=== PATIENT | female | born 2000 | race Two or more races ===

== ENCOUNTER 2020-03-19 07:17 | Emergency (ER) | payer MEDICAID, SELFPAY ==
[2020-03-19 07:24] VITALS: BP 121/80; PULSE 90; RESP 18; TEMP 37.2; O2SAT 98; BMI 24.7
--- NOTE | 2020-03-19 07:31 | ED.URI ---
HPI - URI/Sore Throat General Chief Complaint: Upper Respiratory Symptoms Stated Complaint: covid symptoms Time Seen by Provider: 03/19/20 07:31 Source: patient Mode of arrival: ambulatory Limitations: no limitations History of Present Illness HPI Narrative: Patient was around family for Thanksgiving and now they are positive for KETTY MARTINEZ elicited complaint: cough, sore throat, nasal congestion and other (myalgias) Onset (ago): day(s) Consistency: constant Severity: mild Context: sick contacts and other(s) with similar symptoms Associated symptoms: denies other symptoms Related Data Allergies Allergy/AdvReac Type Severity Reaction Status Date / Time No Known Allergies Allergy Verified 03/19/20 07:24 Review of Systems Constitutional: Constitutional: Reports no additional constitutional complaints Eyes: Eyes: Reports no additional eye complaints ENT: Denies dizziness Cardiovascular: Cardiovascular: Reports no additional cardiovascular complaints Respiratory: Respiratory: Reports as per HPI Gastrointestinal: Gastrointestinal: Reports no additional gastrointestinal complaints Genitourinary: Genitourinary: Reports no additional female genitourinary complaints Musculoskeletal: Musculoskeletal: Reports no additional musculoskeletal complaints Integumentary/Breasts: Skin/Breast: Denies rash Neurologic: Reports system reviewed and no additional complaints, except as documented, Denies dizziness and Denies Sensory deficit (Neuro) Psychiatric: Psychiatric: Denies anxiety [facility] Past Medical History Medical History (Updated 03/19/20 @ 07:47 by Peter Dai MD) Gastritis Physical Exam Vital Signs: Vital Signs: Last Vital Signs Temp 99.0 F 03/19/20 07:24 Pulse 90 03/19/20 07:24 Resp 18 03/19/20 07:24 BP 121/80 03/19/20 07:24 Pulse Ox 98 03/19/20 07:24 Body Mass Index 24.7 Const: General: healthy appearing Nutritional Appearance: average body habitus Orientation/consciousness: oriented to person and patient oriented x3 Limitations: no limitations HENMT: Head: Yes normal to inspection Ears: external ears normal General nose exam: Normal external nose present Mouth: Normal oral and palatal mucosa present and oropharynx normal Throat: Yes posterior oropharynx normal Eyes: General: appearance normal, both eyes and all related structures Neck: Other: supple Neck: Yes normal visual inspection Chest: Chest palpation & inspection: normal inspection of the chest Resp: Auscultation: clear to auscultation bilaterally Cardio: Jugular venous distension: no JVD Rate: regular rate Rhythm: regular rhythm Heart sounds: S1 normal heart sound present and S2 normal heart sound present GI: Inspection: Yes normal to inspection Palpation (GI): Soft to palpation, nontender and No hepatosplenomegaly present Auscultation: normal bowel sounds : General: Yes no CVA tenderness Back/Spine/Pelvis: Back: no CVA tenderness Skin: General skin exam: no rashes or lesions noted Neuro: General: oriented to person and patient oriented x3 Cranial nerves: Yes CN's II-XII intact bilaterally Motor exam (neuro): 5/5 motor strength present throughout Sensory Exam: No Sensory deficit (Neuro) Extrem: General: Yes normal to inspection Psych: Appearance: grossly normal Course Course Course Narrative: will test for COVID MDM - URI/Sore Throat MDM Narrative Medical decision making narrative: Patient with likely COVID, not ill appearing, will dc home Differential Diagnosis Differential diagnosis: Likely upper respiratory infection Discharge Plan Discharge Clinical Impression: COVID-19 Upper respiratory infection Qualifiers: URI type: unspecified viral URI Qualified Code(s): J06.9 - Acute upper respiratory infection, unspecified Patient Disposition: Home, Self-Care Instructions: COVID-19 (Coronavirus Disease 2019) (ED) Referrals: Physician,Unknown [Physician] - 2 days
== END 2020-03-19 08:11 | disposition home or self-care (01) ==
LOC: HO.ED 08:02
PROVIDERS: Emergency Provider Emergency Medicine; PCP Nurse Practitioner Family
DX: U07.1 COVID-19 (principal); R05 Cough; M79.10 Myalgia, unspecified site
CPT/HCPCS: 99283; U0003

== ENCOUNTER 2020-04-12 11:01 | Outpatient (REF) | payer MEDICAID, SELFPAY | END 2020-04-12 11:02 | disposition home or self-care (01) | LOC: HO.LAB 11:01 | PROVIDERS: Visit Provider Internal Medicine | DX: Z20.828 Contact with and (suspected) exposure to other viral communicable diseases (principal) | CPT/HCPCS: C9803; U0003 ==

== ENCOUNTER 2020-08-19 12:53 | Outpatient (REF) | payer MEDICAID, SELFPAY | END 2020-08-19 12:54 | disposition home or self-care (01) | LOC: HO.LAB 12:53 | PROVIDERS: Visit Provider Internal Medicine | DX: Z20.822 Contact with and (suspected) exposure to COVID-19 (principal) | CPT/HCPCS: C9803; U0003; U0005 ==

== ENCOUNTER 2020-09-08 11:33 | Outpatient (REF) | payer MEDICAID, SELFPAY ==
[2020-09-09 08:57] LABS: BV Int Neg Control Negative (Negative); BV Int Pos Control Positive (Positive)
[2020-09-09 09:00] LABS: CT PCR NOT DETECTED (Not Detect.); NG PCR NOT DETECTED (Not Detect.)
== END 2020-09-08 11:34 | disposition home or self-care (01) ==
LOC: HO.LAB 11:33
PROVIDERS: Visit Provider Advanced Practice Midwife
DX: Z01.419 Encounter for gynecological examination (general) (routine) without abnormal findings (principal); L73.9 Follicular disorder, unspecified; Z79.899 Other long term (current) drug therapy; Z20.2 Contact with and (suspected) exposure to infections with a predominantly sexual mode of transmission
CPT/HCPCS: 81025; 87480; 87491; 87510; 87591; 87660; 88142

== ENCOUNTER 2020-10-20 23:12 | Emergency (ER) | payer MEDICAID, SELFPAY ==
[2020-10-20 23:23] VITALS: BP 136/79; PULSE 95; RESP 16; TEMP 36.4; O2SAT 99; BMI 26.2
--- NOTE | 2020-10-20 23:37 | ED.FEMALEGU ---
HPI - Female Genitourinary General Chief complaint: Abdominal Pain Stated complaint: urogential pain for about 2 days Time Seen by Provider: 10/20/20 23:29 Source: patient Mode of arrival: ambulatory Limitations: no limitations History of Present Illness HPI Narrative: 20 y/o female with no significant medical history presents to the ER from home c/o 2 days of ovary pain. She states that she has dull, constant ache in both of her ovaries as well as thin, watery, white/clear vaginal discharge. She had unprotected sex on October 03 but denies concern for STI. She is late for her menses. She usually gets it every 3 months and is on the combination OCP for this. She was supposed to get it 4 days ago. She is nauseated but has not vomited. She states 2 weeks ago she had some mild spotting but no jessee bleeding. No fever, chills, diarrhea or constipation. Denies history of STI. She denies urinary symptoms. MD elicited complaint: vaginal discharge, pelvic pain, suspected and delayed menses Onset (ago): day(s) (2) Location of symptoms: suprapubic and vaginal Female Urogenital Radiation: Non-Radiating Severity scale (1-10): 4 Quality of pain: dull and aching Consistency: constant Vaginal discharge: white Vaginal bleeding: none Exacerbating factors: none Relieving factors: none Associated symptoms: nausea Treatment prior to arrival: none Sexual activity: Yes Possible : unsure if Related Data Previous Rx's Medication Instructions Recorded L norgest/E estradiol-E estrad 1 tab PO DAILY 84 Days #84 ea 09/08/20 0.15 mg-30 mcg (84)/10 mcg(7) tabs,3mos doxycycline monohydrate 100 mg PO BID #14 tab 10/21/20 metronidazole [Flagyl] 500 mg PO BID #14 tab 10/21/20 Allergies Allergy/AdvReac Type Severity Reaction Status Date / Time No Known Allergies Allergy Verified 09/08/20 11:56 Review of Systems Review of Systems: Constitutional: No Fever, No Chills Respiratory: No Cough, No Sputum Gastrointestinal: + Nausea, No Vomiting, No Diarrhea, + abdominal Pain Genitourinary: No Dysuria, No Urinary Frequency, No Hematuria Musculoskeletal: No joint pain, No Myalgias Skin: No Skin Lesions, No rash Neuro: No Weakness, No Numbness, No Dizziness, No Headache Psych: + Anxiety/Panic, No Depression Heme/Lymph: No Lymphadenopathy [facility] Past Medical History Attestation statement: The following information was validated with the patient. Medical History Gastritis Social History Social History (Updated 09/08/20 @ 11:58 by Yesenia Rosales CMA) Alcohol intake: current Alcohol intake frequency: holidays/special occasions only Substance Use Type: Marijuana Advance Directives: No Advance Directives Information Provided: No Patient : No (NEGATIVE TEST TODAY) Gender identity: female Physical Exam Vital Signs: Vital Signs: Last Vital Signs Temp 97.6 F 10/20/20 23:23 Pulse 95 10/20/20 23:23 Resp 16 10/20/20 23:23 BP 136/79 10/20/20 23:23 Pulse Ox 99 10/20/20 23:23 Body Mass Index 26.2 Const: General: cooperative, healthy appearing, comfortable and no acute distress HENMT: Head: Yes normal to inspection Ears: hearing grossly normal bilaterally General nose exam: Normal external nose present Face and sinus: Yes normal facial exam Mouth: Normal oral and palatal mucosa present Eyes: General: appearance normal, both eyes and all related structures Neck: Neck: Yes normal visual inspection Chest: Chest palpation & inspection: normal inspection of the chest Resp: Effort & Inspection: normal respiratory effort and able to speak in complete sentences Cardio: Rate: regular rate Rhythm: regular rhythm GI: Inspection: Yes normal to inspection Palpation (GI): Soft to palpation and Tenderness to palpation present (GI) suprapubicly; with no rebound tenderness Percussion: Yes normal to percussion Auscultation: normal bowel sounds : Speculum Exam - Vagina: normal appearance of the vagina and abnormal vaginal discharge white Speculum Exam - Cervix: Abnormal cervical discharge present white and Cervical lesion present petechiae Bimanual exam- vagina & uterus: normal bimanual exam Bimanual Exam- Adnexa, other: normal adnexae Skin: General skin exam: no rashes or lesions noted Extrem: General: Yes normal to inspection Psych: Appearance: grossly normal and well kempt Mental Status: mental status grossly normal Course Course Course Narrative: 20 y/o female presenting with 2 days of aching, dull ovary pain and new vaginal discharge after unprotected sex. Concern for with late menses. Will get UA, Upreg. Pelvic exam is concerning for cervicitis and STI. No cervical motion tenderness. Will empirically treat for STI's. Patient is agreeable and has been counseled. Reevaluation(s) Reevaluation #1: UA negative. negative. She has an appointment with [facility] here tomorrow morning at 9:45. She is stable for d/c home with outpatient follow up. MDM - Female Genitourinary Lab Data Labs: Lab Results 10/21/20 10/21/20 Range/Units 00:23 00:23 Urine Color YELLOW Urine Appearance CLEAR Urine pH 6.0 (5.0-8.0) Ur Specific [place] 1.020 (1.005-1.025) Urine Protein NEG (NEG-TRACE) MG/DL Urine Glucose (UA) NEG (NEG) MG/DL Urine Ketones NEG (NEG) MG/DL Urine Blood NEG (NEG) Urine Nitrite NEG (NEG) Ur Leukocyte Esterase NEG (NEG) Urine Test NEGATIVE (NEGATIVE) Discharge Plan Discharge Clinical Impression: Cervicitis Patient Disposition: Home, Self-Care Instructions: Cervicitis (ED) Additional Instructions: You were tested and treated for possible sexually transmitted infections. If ANY of these are positive we will call you. Your test was negative. Follow up with [facility] tomorrow as scheduled. Prescriptions: New doxycycline monohydrate 100 mg tablet 100 mg PO BID Qty: 14 RF: 0 metronidazole [Flagyl] 500 mg tablet 500 mg PO BID Qty: 14 RF: 0 No Action L norgest/e.estradiol-e.estrad [Seasonique] 0.15 mg-30 mcg (84)/10 mcg (7) tablets,dose pack,3 month 1 tab PO DAILY 84 Days Qty: 84 RF: 4 Referrals: Florentino Rao MD [Physician] - 2 days (cervicitis)
--- NOTE | 2020-10-21 00:12 | PC.NURSE ---
PA IN ROOM FOR A VAGINAL EXAM.
[2020-10-21 00:29] LABS: Glucose Urine UA NEG (NEG); Leukocyte Esterase Urine NEG (NEG); Nitrite Urine NEG (NEG); Urine Blood NEG (NEG); Urine Ketones NEG (NEG); Urine Protein NEG (NEG-TRACE)
[2020-10-21 00:31] LABS: UPreg QC Valid YES; Urine Pregnancy NEGATIVE (NEGATIVE)
[2020-10-21 00:32] LABS: Appearance Urine CLEAR; Color Urine YELLOW; UACC Culture Trigger NO
[2020-10-21] MEDS: Azithromycin 500 MG TABLET 1000 MG PO (00:41)
[2020-10-21] MEDS: metroNIDAZOLE 500 MG TABLET 2000 MG PO (00:41)
[2020-10-21] MEDS: cefTRIAXone sodium 250 MG, Lidocaine HCl 1 % MPF 0.9 ML IM (00:42)
[2020-10-21 02:34] LABS: CT PCR NOT DETECTED (Not Detect.); NG PCR NOT DETECTED (Not Detect.)
[2020-10-21 09:13] LABS: BV Int Neg Control Negative (Negative); BV Int Pos Control Positive (Positive)
== END 2020-10-21 01:03 | disposition home or self-care (01) ==
PROVIDERS: Physician Assistant; Emergency Provider Internal Medicine; PCP Nurse Practitioner Family
DX: N72 Inflammatory disease of cervix uteri (principal); Z20.2 Contact with and (suspected) exposure to infections with a predominantly sexual mode of transmission
CPT/HCPCS: 81003; 81025; 87480; 87491; 87510; 87591; 87660; 96372; 99283; 99284; J0696

== ENCOUNTER 2020-10-22 06:52 | Emergency (ER) | payer MEDICAID, SELFPAY ==
--- NOTE | ~2020-10-22 | CT_ITS ---
EXAMINATION: CT ABDOMEN AND PELVIS WITH CONTRAST CLINICAL INFORMATION: Right lower quadrant pain COMPARISON: Previous CT of the abdomen and pelvis April 2018 TECHNIQUE: Multidetector volumetric images were obtained from the superior aspect of the liver through the pubic symphysis following administration 85 mL of Omnipaque 350 intravenous contrast. Sagittal and coronal reformatted images were obtained on the technologist's workstation. Oral contrast: Yes This CT examination was performed using dose optimization techniques as appropriate, variously including the following: *Automated exposure control *Adjustment of mA and/or kV according to patient size (this includes techniques or standardized protocols for targeted exams where dose is matched to indication/reason for exam; i.e. extremities or head) *Use of iterative reconstruction technique DLP: 381 mGy-cm FINDINGS: LUNG BASES: The visualized lung bases are unremarkable. LIVER, GALLBLADDER, AND BILIARY TREE: The liver is normal in size, shape, and attenuation. No focal hepatic lesion or biliary ductal dilatation is present. The gallbladder is normal in size. No gallstones are seen. The gallbladder wall appears right or enhancing and likely irregular. This may represent adenomyomatosis of the gallbladder wall. This could be better evaluated with ultrasound if clinically indicated. PANCREAS: Unremarkable. SPLEEN: Unremarkable. ADRENAL GLANDS: Unremarkable. KIDNEYS AND URETERS: The kidneys are normal in size, shape, and attenuation. No hydronephrosis, hydroureter, or calculi seen. No perinephric stranding. BLADDER: Unremarkable. GASTROINTESTINAL TRACT: There is stool throughout the colon suggestive of constipation. The small and large bowel are otherwise unremarkable. The appendix is unremarkable. ABDOMINAL WALL: No significant hernia is appreciated. LYMPH NODES: Normal. VASCULAR: Unremarkable. PELVIC VISCERA: Unremarkable. OSSEOUS STRUCTURES: Unremarkable. CT/CT abdomen pelvis w con IMPRESSION: Normal-appearing appendix. Stool throughout the colon suggestive of constipation. Question adenomyomatosis of the gallbladder wall. This could be better evaluated with ultrasound if clinically indicated.
[2020-10-22 07:07] VITALS: BP 112/80; BP 95/55; PULSE 82; PULSE 98; RESP 15; TEMP 36.9; O2SAT 100; O2SAT 98; BMI 26.8
--- NOTE | 2020-10-22 07:36 | ED_ITS ---
HPI - Nausea/Vomiting/Diarrhea General Chief complaint: Nausea/Vomiting/Diarrhea Stated complaint: abd pain Time Seen by Provider: 10/22/20 07:28 Source: patient Mode of arrival: ambulatory Limitations: no limitations History of Present Illness HPI Narrative: patient comes to emergency room complaining of right lower quadrant pain. Patient was seen here 2 days ago, diagnosed with cervicitis, patient was given 1 IM dose of ceftriaxone, and was sent home with a prescription for doxycycline and metronidazole. Patient states that the medication is making her feel nauseous and vomit, patient states that she has not had any significant relief from the right lower quadrant discomfort. Patient reports subjective fever, chills, Complaining of nausea and vomiting. Related Data Previous Rx's Medication Instructions Recorded L norgest/E estradiol-E estrad 1 tab PO DAILY 84 Days #84 ea 09/08/20 0.15 mg-30 mcg (84)/10 mcg(7) tabs,3mos doxycycline monohydrate 100 mg PO BID #14 tab 10/21/20 metronidazole [Flagyl] 500 mg PO BID #14 tab 10/21/20 levofloxacin 750 mg PO DAILY #7 tab 10/22/20 miconazole nitrate 1 appful VAGINAL BEDTIME 7 Days g 10/22/20 miconazole nitrate 1 appful VAGINAL BEDTIME 7 Days 10/22/20 #45 g ondansetron HCl [Zofran] 4 mg PO Q6H PRN #14 tab 10/22/20 Allergies Allergy/AdvReac Type Severity Reaction Status Date / Time No Known Allergies Allergy Verified 09/08/20 11:56 Review of Systems Review of Systems: Constitutional : No Weight loss, Complaining of chills, subjective feverNo Night Sweats, No Fatigue, No Malaise ENT/Mouth : No Hearing loss, No Ear Pain, No Nasal Congestion, No Sinus Pain, No Hoarseness, No sore throat, No Rhinorrhea, No Swallowing Difficulty Eyes: No Eye Pain, No Swelling, No Redness, No Foreign Body, No Discharge, No Vision Changes Cardiovascular : No Chest Pain, No SOB, No Dyspnea on Exertion, No Orthopnea, No Edema, No Palpitations Respiratory : No Cough, No Sputum, No Wheezing, No Smoke Exposure, No Dyspnea Gastrointestinal : draining of nausea and vomiting,No Diarrhea, No Constipation, complaining of right lower quadrant pain, No Hematochezia, No Melena Genitourinary : no irregular bleeding, No Dysuria, No Urinary Frequency, No Hematuria, No Urinary Incontinence, No Urgency, No Flank Pain, No Urinary Flow Changes, No Hesitancy Musculoskeletal : No joint pain, No Myalgias, No Joint Swelling Skin : No Skin Lesions, No rash Neuro : No Weakness, No Numbness, No Paresthesias, No Loss of Consciousness, No Dizziness, No Headache Psych : No Anxiety/Panic, No Depression, No SI/HI/AH/VH, No Social Issues, Heme/Lymph: No Bruising, No Bleeding,No Lymphadenopathy Endocrine : No Polyuria, No Polydipsia, No Temperature Intolerance [facility] Past Medical History Medical History Gastritis Social History Social History (Updated 09/08/20 @ 11:58 by Yesenia Rosales [facility]) Alcohol intake: never Patient Tobacco Use Status: Never used Tobacco Use of substances other than those prescribed or required for medical reasons: Yes Substance Use Type: Marijuana Advance Directives: Yes Advance Directives Information Provided: Yes Advance Directives on File: No Patient : No Gender identity: female Physical Exam Vital Signs: Vital Signs: Last Vital Signs Temp 98.4 F 10/22/20 07:07 Pulse 71 10/22/20 09:53 Resp 16 10/22/20 09:53 BP 101/56 L 10/22/20 09:53 Pulse Ox 97 10/22/20 09:53 Body Mass Index 26.8 Appearance: Alert. Oriented X3. No acute distress. Eyes: Pupils equal, round and reactive to light. ENT: Pharynx normal. Neck: Normal inspection. Neck supple. No lymph nodes noted. No crepitus CVS: Normal heart rate and rhythm. Pulses normal. Normal S1 and S2 Respiratory: No respiratory distress. Breath sounds normal. No Wheezing. No rales Abdomen: Soft and nontender. No rigidity. No distention. : mild white thick discharge, mild positive cervical motion tenderness Skin: Skin warm and dry. Normal skin color. Normal skin turgor. Extremities: No lower extremity edema. No lower extremity edema. No Lace rations. No Rash Neuro: Oriented X 3. No motor deficit. No sensory deficit. Moving all extermities. No slurred speech. Course Course Course Narrative: Patient's test from 2 days ago were negative for Trichomonas, Gardnerella, gonorrhea and chlamydia. Positive for candidiasis patient cannot tolerate doxycycline, makes her throw up. I discussed with the patient not to take alcohol while she is taking metronidazole. Her antibiotic will be switched to levofloxacin. Patient instructed to have close follow-up with her OBGYN. MDM - Nausea/Vomiting/Diarrhea Lab Data Result diagrams: 10/22/20 08:07 10/22/20 08:11 Labs: Lab Results 10/22/20 10/22/20 10/22/20 Range/Units 08:07 08:07 08:07 WBC 7.8 (4.8-10.8) X10*3/uL RBC 4.57 (4.20-5.50) X10*6/uL Hgb 13.5 (12.0-16.0) g/dl Hct 41.0 (37-47) % MCV 89.7 (80-98) fL MCH 29.5 (27.0-33.0) pg MCHC 32.9 (31.0-35.0) g/dl RDW 13.1 (11.0-16.0) % Plt Count 152 L (160-400) X10*3/uL MPV 12.2 (9.4-12.3) fL Immature Gran % (Auto) 0.3 (0.0-0.4) % Neut % (Auto) 56.9 (45-73) % Lymph % (Auto) 32.7 (20-40) % [place] % (Auto) 7.6 (2-11) % Eos % (Auto) 2.1 (0-4) % Baso % (Auto) 0.4 (0-2) % Lymph # (Auto) 2.6 (1.2-4.9) X10*3/uL [place] # (Auto) 0.6 (0.1-1.2) X10*3/uL Eos # (Auto) 0.2 (0.0-0.4) X10*3/uL Baso # (Auto) 0.0 (0.0-0.2) X10*3/uL Abs Immat Gran (auto) 0.02 (0.00-0.03) X10*3/uL Absolute Neuts (auto) 4.4 (2.0-8.3) X10*3/uL Absolute Nucleated RBC 0.000 (0.0-0.012) X10*3/uL Nucleated RBC % (auto) 0.0 (0.0-0.2) /100WBC Sodium (135-145) mmol/L Potassium (3.3-5.1) mmol/L Chloride (96-108) mmol/L Carbon Dioxide (22-29) mmol/L Anion Gap (12-20) BUN (9-16) mg/dL Creatinine (0.5-1.4) mg/dL Estim Creat Clear Calc Estimated GFR Random Glucose (60-115) mg/dL Lactic Acid 0.8 (0.5-2.0) mmol/L Calcium (8.4-10.2) mg/dL Total Bilirubin (0.0-1.0) mg/dL Direct Bilirubin (0.0-0.5) mg/dL AST (5-31) U/L ALT (0-31) U/L Alkaline Phosphatase (39-117) U/L Total Protein (6.5-8.0) g/dL Albumin (3.5-5.0) g/dL Lipase 22 (8-78) U/L Beta HCG, Quant mIU/mL Urine Color Urine Appearance Urine pH (5.0-8.0) Ur Specific [place] (1.005-1.025) Urine Protein (NEG-TRACE) MG/DL Urine Glucose (UA) (NEG) MG/DL Urine Ketones (NEG) MG/DL Urine Blood (NEG) Urine Nitrite (NEG) Ur Leukocyte Esterase (NEG) 10/22/20 10/22/20 10/22/20 Range/Units 08:07 08:11 09:54 WBC (4.8-10.8) X10*3/uL RBC (4.20-5.50) X10*6/uL Hgb (12.0-16.0) g/dl Hct (37-47) % MCV (80-98) fL MCH (27.0-33.0) pg MCHC (31.0-35.0) g/dl RDW (11.0-16.0) % Plt Count (160-400) X10*3/uL MPV (9.4-12.3) fL Immature Gran % (Auto) (0.0-0.4) % Neut % (Auto) (45-73) % Lymph % (Auto) (20-40) % [place] % (Auto) (2-11) % Eos % (Auto) (0-4) % Baso % (Auto) (0-2) % Lymph # (Auto) (1.2-4.9) X10*3/uL [place] # (Auto) (0.1-1.2) X10*3/uL Eos # (Auto) (0.0-0.4) X10*3/uL Baso # (Auto) (0.0-0.2) X10*3/uL Abs Immat Gran (auto) (0.00-0.03) X10*3/uL Absolute Neuts (auto) (2.0-8.3) X10*3/uL Absolute Nucleated RBC (0.0-0.012) X10*3/uL Nucleated RBC % (auto) (0.0-0.2) /100WBC Sodium 137 (135-145) mmol/L Potassium 3.8 (3.3-5.1) mmol/L Chloride 107 (96-108) mmol/L Carbon Dioxide 23 (22-29) mmol/L Anion Gap 11 L (12-20) BUN 14 (9-16) mg/dL Creatinine 0.72 (0.5-1.4) mg/dL Estim Creat Clear Calc 106.2 Estimated GFR > 60 Random Glucose 84 (60-115) mg/dL Lactic Acid (0.5-2.0) mmol/L Calcium 9.3 (8.4-10.2) mg/dL Total Bilirubin 0.8 (0.0-1.0) mg/dL Direct Bilirubin 0.3 (0.0-0.5) mg/dL AST 17 (5-31) U/L ALT 26 (0-31) U/L Alkaline Phosphatase 73 (39-117) U/L Total Protein 6.6 (6.5-8.0) g/dL Albumin 3.9 (3.5-5.0) g/dL Lipase (8-78) U/L Beta HCG, Quant < 2 mIU/mL Urine Color YELLOW Urine Appearance CLEAR Urine pH 7.5 (5.0-8.0) Ur Specific [place] <= 1.005 (1.005-1.025) Urine Protein NEG (NEG-TRACE) MG/DL Urine Glucose (UA) NEG (NEG) MG/DL Urine Ketones NEG (NEG) MG/DL Urine Blood NEG (NEG) Urine Nitrite NEG (NEG) Ur Leukocyte Esterase NEG (NEG) Imaging Data CT scan - abdomen: Radiologist's impression: INDINGS: LUNG BASES: The visualized lung bases are unremarkable. LIVER, GALLBLADDER, AND BILIARY TREE: The liver is normal in size, shape, and attenuation. No focal hepatic lesion or biliary ductal dilatation is present. The gallbladder is normal in size. No gallstones are seen. The gallbladder wall appears right or enhancing and likely irregular. This may represent adenomyomatosis of the gallbladder wall. This could be better evaluated with ultrasound if clinically indicated. PANCREAS: Unremarkable. SPLEEN: Unremarkable. ADRENAL GLANDS: Unremarkable. KIDNEYS AND URETERS: The kidneys are normal in size, shape, and attenuation. No hydronephrosis, hydroureter, or calculi seen. No perinephric stranding. BLADDER: Unremarkable. GASTROINTESTINAL TRACT: There is stool throughout the colon suggestive of constipation. The small and large bowel are otherwise unremarkable. The appendix is unremarkable. ABDOMINAL WALL: No significant hernia is appreciated. LYMPH NODES: Normal. VASCULAR: Unremarkable. PELVIC VISCERA: Unremarkable. OSSEOUS STRUCTURES: Unremarkable. CT/CT abdomen pelvis w con IMPRESSION: Normal-appearing appendix. Stool throughout the colon suggestive of constipation. Question adenomyomatosis of the gallbladder wall. This could be better evaluated with ultrasound if clinically indicated. Discharge Plan Discharge Clinical Impression: Vomiting, Medication intolerance, Candidiasis Patient Disposition: Home, Self-Care Instructions: Abdominal Pain (ED) Additional Instructions: stop taking doxycycline, start taking levofloxacin , continue taking metronidazole. Please follow-up with your OBGYN. Please follow-up with your primary care physician tomorrow. If you have any worsening or new symptoms, please return to the emergency room or call 911 Prescriptions: New levofloxacin 750 mg tablet 750 mg PO DAILY Qty: 7 RF: 0 ondansetron HCl [Zofran] 4 mg tablet 4 mg PO Q6H PRN (Reason: nausea and vomiting) Qty: 14 RF: 0 miconazole nitrate 2 % cream 1 appful vaginal BEDTIME 7 Days RF: 0 miconazole nitrate 2 % cream 1 appful vaginal BEDTIME 7 Days Qty: 45 RF: 0 No Action doxycycline monohydrate 100 mg tablet 100 mg PO BID Qty: 14 RF: 0 metronidazole [Flagyl] 500 mg tablet 500 mg PO BID Qty: 14 RF: 0 L norgest/e.estradiol-e.estrad [Seasonique] 0.15 mg-30 mcg (84)/10 mcg (7) tablets,dose pack,3 month 1 tab PO DAILY 84 Days Qty: 84 RF: 4
[2020-10-22] MEDS: 0.9 % Sodium Chloride 1,000 ML 999 ML IVCONT (08:16)
[2020-10-22 08:22] LABS: MANUAL DIFF FLAG NO
[2020-10-22 08:24] LABS: Basophils Percent Auto 0.4 % (0-2); Eosinophils Absolute Auto 0.2 X10*3/uL (0.0-0.4); Eosinophils Percent Auto 2.1 % (0-4); Hemoglobin 13.5 g/dl (12.0-16.0); Imm Gran Abs Auto 0.02 X10*3/uL (0.00-0.03); Imm Gran Pct Auto 0.3 % (0.0-0.4); Lymphocytes Absolute Auto 2.6 X10*3/uL (1.2-4.9); Lymphocytes Percent Auto 32.7 % (20-40); Mean Corpuscular HGB Conc 32.9 g/dl (31.0-35.0); Mean Corpuscular Hemoglobin 29.5 pg (27.0-33.0); Mean Corpuscular Volume 89.7 fL (80-98); Mean Platelet Volume 12.2 fL (9.4-12.3); Monocytes Absolute Auto 0.6 X10*3/uL (0.1-1.2); Monocytes Percent Auto 7.6 % (2-11); Neutrophils Absolute Auto 4.4 X10*3/uL (2.0-8.3); Neutrophils Percent Auto 56.9 % (45-73); Platelet Count 152 X10*3/uL (160-400); Red Blood Count 4.57 X10*6/uL (4.20-5.50); Red Cell Distribution Width 13.1 % (11.0-16.0); White Blood Count 7.8 X10*3/uL (4.8-10.8)
[2020-10-22] MEDS: Ketorolac Tromethamine 15 MG/ML VIAL 30 MG IVPUSH (08:42)
[2020-10-22 08:46] LABS: Lactic Acid 0.8 mmol/L (0.5-2.0)
[2020-10-22 08:51] LABS: Alanine Aminotransferase 26 U/L (0-31); Albumin Level 3.9 g/dL (3.5-5.0); Alkaline Phosphatase 73 U/L (39-117); Anion Gap 11 (12-20); Aspartate Amino Transferase 17 U/L (5-31); Bilirubin Direct 0.3 mg/dL (0.0-0.5); Bilirubin Total 0.8 mg/dL (0.0-1.0); Blood Urea Nitrogen 14 mg/dL (9-16); Calcium 9.3 mg/dL (8.4-10.2); Carbon Dioxide 23 mmol/L (22-29); Chloride 107 mmol/L (96-108); Creatinine Clr Calc Pharmacy 106.2; Estimated Glomerular Filt Rate > 60; Glucose Random 84 mg/dL (60-115); Potassium 3.8 mmol/L (3.3-5.1); Sodium 137 mmol/L (135-145); Total Protein 6.6 g/dL (6.5-8.0)
[2020-10-22 08:52] LABS: Lipase 22 U/L (8-78)
[2020-10-22 08:56] LABS: HCG Quantitative < 2 mIU/mL
[2020-10-22] MEDS: iohexoL 350 MG/ML 100 ML INFUS..BTL IV (09:36)
[2020-10-22 09:53] VITALS: BP 101/56; PULSE 71; RESP 16; O2SAT 97
[2020-10-22 10:01] LABS: Glucose Urine UA NEG (NEG); Leukocyte Esterase Urine NEG (NEG); Nitrite Urine NEG (NEG); PH 7.5 (5.0-8.0); Specific Gravity - Urine <= 1.005 (1.005-1.025); Urine Blood NEG (NEG); Urine Ketones NEG (NEG); Urine Protein NEG (NEG-TRACE)
[2020-10-22 10:02] LABS: Appearance Urine CLEAR; Color Urine YELLOW
== END 2020-10-22 11:11 | disposition home or self-care (01) ==
PROVIDERS: Emergency Provider Emergency Medicine
DX: R11.10 Vomiting, unspecified (principal); T36.4X5A Adverse effect of tetracyclines, initial encounter; Y92.9 Unspecified place or not applicable; B37.9 Candidiasis, unspecified; N72 Inflammatory disease of cervix uteri
CPT/HCPCS: 36415; 74177; 80048; 80076; 81003; 83605; 83690; 84702; 85025; 87040; 96361; 96374; 96375; 99283; 99284; J1885; Q9967

== ENCOUNTER 2020-10-22 20:14 | Emergency (ER) | payer MEDICAID, SELFPAY ==
[2020-10-22 20:20] VITALS: BP 119/85; PULSE 91; RESP 16; O2SAT 99; BMI 26.6
--- NOTE | 2020-10-22 21:21 | ED_ITS ---
HPI - Allergic Reaction General Chief complaint: Allergic Reaction Stated complaint: alergic reaction Time Seen by Provider: 10/22/20 21:19 History of Present Illness HPI narrative: Patient is a 20-year-old female with a history of cervicitis. Patient initially was given doxycycline and Rocephin. She was unable to tolerate the doxycycline. Getting nausea. The antibiotic was switched to Levaquin last night along with the metronidazole which she has been taking all along. Patient complaining of a rash that developed prior to arrival. Patient was given Benadryl on the ambulance. Subsequently the rash has gone away on arrival in the emergency department. She has no itch. No shortness of breath. No chest pain. No dizziness. Patient from home. No nausea no vomiting. patient denies using alcohol. Patient denies any change in her environment. No new lotion no new apartment no new pets no changes. Related Data Previous Rx's Medication Instructions Recorded L norgest/E estradiol-E estrad 1 tab PO DAILY 84 Days #84 ea 09/08/20 0.15 mg-30 mcg (84)/10 mcg(7) tabs,3mos doxycycline monohydrate 100 mg PO BID #14 tab 10/21/20 metronidazole [Flagyl] 500 mg PO BID #14 tab 10/21/20 diphenhydramine HCl [Benadryl] 25 mg PO Q8H 5 Days #15 cap 10/22/20 epinephrine [EpiPen] 0.3 mg IM ONCE PRN #1 ea 10/22/20 famotidine [Pepcid] 20 mg PO BID 5 Days #10 tab 10/22/20 levofloxacin 750 mg PO DAILY #7 tab 10/22/20 miconazole nitrate 1 appful VAGINAL BEDTIME 7 Days g 10/22/20 miconazole nitrate 1 appful VAGINAL BEDTIME 7 Days 10/22/20 #45 g ondansetron HCl [Zofran] 4 mg PO Q6H PRN #14 tab 10/22/20 Allergies Allergy/AdvReac Type Severity Reaction Status Date / Time No Known Allergies Allergy Verified 09/08/20 11:56 Review of Systems Review of Systems: No fever no chills no shortness breath no change in voice. Positive diffuse rash around the eye and in the hands. It has resolved. All systems reviewed otherwise negative PMFSH Past Medical History Attestation statement: The following information was validated with the patient. Medical History Gastritis Social History Social History (Updated 09/08/20 @ 11:58 by Yesenia Rosales CMA) Alcohol intake: never Patient Tobacco Use Status: Never used Tobacco Substance Use Type: Marijuana Advance Directives: No Advance Directives Information Provided: Yes Patient : No Gender identity: female Physical Exam Vital Signs: Vital Signs: Last Vital Signs Pulse 91 10/22/20 20:20 Resp 16 10/22/20 20:20 BP 119/85 10/22/20 20:20 Pulse Ox 99 10/22/20 20:20 Body Mass Index 26.6 X Appearance: Alert. Oriented X3. No acute distress. Eyes: Pupils equal, round and reactive to light. ENT: Pharynx normal. Neck: Normal inspection. Neck supple. No lymph nodes noted. No crepitus CVS: Normal heart rate and rhythm. Pulses normal. Normal S1 and S2 Respiratory: No respiratory distress. Breath sounds normal. No Wheezing. No rales Abdomen: Soft and nontender. No rigidity. No distention. good BS x4 Skin: Skin warm and dry. Normal skin color. Normal skin turgor. Extremities: No lower extremity edema. Neurovascular intact to all extremities. No Lacerations. No Rash Neuro: Oriented X 3. No motor deficit. No sensory deficit. Moving all extermities. No slurred speech MDM - Allergic Reaction MDM Narrative Medical decision making narrative: Patient has no rash. Lungs are clear normal voice. Vital signs are stable. No evidence for allergic reaction at this time. Patient claims she had watery eyes and also had a rash earlier. Took some Benadryl in the ambulance. Symptom has completely resolved. Question if patient had allergic reaction. Given patient already had a change in medicat ion. She tolerated the Levaquin well otherwise. Elected to have patient monitor the situation. Continue the Levaquin for now. Continue the metronidazole for now. Close follow-up on an outpatient basis. Benadryl given as needed for allergic reaction. Epinephrine pen for extreme condition if she gets short of breath change in voice. Currently in stable condition. Will discharge home. Differential Diagnosis Differential diagnosis: Likely allergic reaction Medical Records Attestation: I reviewed the patient's medical records. Lab Data Attestation: I reviewed the patient's lab results. Discharge Plan Discharge Clinical Impression: Allergic reaction Patient Disposition: Home, Self-Care Instructions: Allergies (ED) Prescriptions: New diphenhydramine HCl [Benadryl] 25 mg capsule 25 mg PO Q8H 5 Days Qty: 15 RF: 0 epinephrine [EpiPen] 0.3 mg/0.3 mL auto-injector 0.3 mg IM ONCE PRN (Reason: extreme reaction) Qty: 1 RF: 0 famotidine [Pepcid] 20 mg tablet 20 mg PO BID 5 Days Qty: 10 RF: 0 No Action doxycycline monohydrate 100 mg tablet 100 mg PO BID Qty: 14 RF: 0 metronidazole [Flagyl] 500 mg tablet 500 mg PO BID Qty: 14 RF: 0 levofloxacin 750 mg tablet 750 mg PO DAILY Qty: 7 RF: 0 ondansetron HCl [Zofran] 4 mg tablet 4 mg PO Q6H PRN (Reason: nausea and vomiting) Qty: 14 RF: 0 miconazole nitrate 2 % cream 1 appful vaginal BEDTIME 7 Days RF: 0 miconazole nitrate 2 % cream 1 appful vaginal BEDTIME 7 Days Qty: 45 RF: 0 L norgest/e.estradiol-e.estrad [Seasonique] 0.15 mg-30 mcg (84)/10 mcg (7) tablets,dose pack,3 month 1 tab PO DAILY 84 Days Qty: 84 RF: 4 Referrals: Devonte Camacho NP [Primary Care Provider] - 2 days
[2020-10-22 21:41] VITALS: BP 119/68; PULSE 91; RESP 16; TEMP 36.6; O2SAT 99
== END 2020-10-22 22:12 | disposition home or self-care (01) ==
PROVIDERS: Emergency Provider Emergency Medicine Emergency Medical Services; PCP Nurse Practitioner Family
DX: T78.40XA Allergy, unspecified, initial encounter (principal); X58.XXXA Exposure to other specified factors, initial encounter; N72 Inflammatory disease of cervix uteri
CPT/HCPCS: 99283

== ENCOUNTER → 2020-11-10 08:29 | Outpatient (BNVA) | payer MEDICAID, SELFPAY | PROVIDERS: Visit Provider Advanced Practice Midwife ==

== ENCOUNTER 2020-11-29 09:04 | Outpatient (REF) | payer MEDICAID, SELFPAY ==
[2020-11-29 15:45] LABS: CT PCR NOT DETECTED (Not Detect.); NG PCR NOT DETECTED (Not Detect.)
[2020-11-30 09:16] LABS: BV Int Neg Control Negative (Negative); BV Int Pos Control Positive (Positive)
== END 2020-11-29 09:05 | disposition home or self-care (01) ==
LOC: HO.LAB 09:04
PROVIDERS: Visit Provider Advanced Practice Midwife
DX: N73.0 Acute parametritis and pelvic cellulitis (principal); Z20.2 Contact with and (suspected) exposure to infections with a predominantly sexual mode of transmission
CPT/HCPCS: 87480; 87491; 87510; 87591; 87660; 99212

== ENCOUNTER 2021-05-06 15:13 | Outpatient (REF) | payer MEDICAID, SELFPAY ==
[2021-05-07 03:00] LABS: CT PCR NOT DETECTED (Not Detect.); NG PCR NOT DETECTED (Not Detect.)
[2021-05-07 09:48] LABS: BV Int Neg Control Negative (Negative); BV Int Pos Control Positive (Positive)
== END 2021-05-06 15:14 | disposition home or self-care (01) ==
LOC: HO.LAB 15:13
PROVIDERS: Visit Provider Advanced Practice Midwife
DX: Z01.419 Encounter for gynecological examination (general) (routine) without abnormal findings (principal); Z20.2 Contact with and (suspected) exposure to infections with a predominantly sexual mode of transmission
CPT/HCPCS: 87480; 87491; 87510; 87591; 87660; 99212

== ENCOUNTER 2021-06-28 21:24 | Emergency (ER) | payer OTHER, SELFPAY ==
--- NOTE | ~2021-06-28 | XR_ITS ---
EXAMINATION: 1. RADIOGRAPHS RIGHT KNEE 2. RADIOGRAPHS RIGHT ANKLE CLINICAL INFORMATION: Diffuse swelling after fall. COMPARISON: None TECHNIQUE: 2 views of the right knee and 3 views of the right ankle were obtained. FINDINGS: Right knee: No fracture or dislocation. No suprapatellar joint effusion. No appreciable degenerative changes. No focal soft tissue swelling of the anterior knee. Right ankle: Visualized portion of the distal tibia and fibula demonstrate no fracture. Ankle mortise is maintained. No focal soft tissue swelling of the ankle. No appreciable degenerative changes. No gross ankle joint effusion. XR/XR knee RT 2V IMPRESSION: Unremarkable radiographs of the right knee and right ankle.
--- NOTE | ~2021-06-28 | XR_ITS ---
EXAMINATION: 1. RADIOGRAPHS RIGHT KNEE 2. RADIOGRAPHS RIGHT ANKLE CLINICAL INFORMATION: Diffuse swelling after fall. COMPARISON: None TECHNIQUE: 2 views of the right knee and 3 views of the right ankle were obtained. FINDINGS: Right knee: No fracture or dislocation. No suprapatellar joint effusion. No appreciable degenerative changes. No focal soft tissue swelling of the anterior knee. Right ankle: Visualized portion of the distal tibia and fibula demonstrate no fracture. Ankle mortise is maintained. No focal soft tissue swelling of the ankle. No appreciable degenerative changes. No gross ankle joint effusion. XR/XR ankle RT 2V IMPRESSION: Unremarkable radiographs of the right knee and right ankle.
[2021-06-28 21:28] VITALS: BP 134/92; PULSE 96; RESP 16; TEMP 37; O2SAT 98; BMI 28.3
[2021-06-28] MEDS: Ibuprofen 600 MG TABLET PO (21:37)
--- NOTE | 2021-06-28 22:38 | ED.FALL ---
HPI - Fall General Chief Complaint: Fall Stated Complaint: slipped on water pain in rt knee and ankle at work Time Seen by Provider: 06/28/21 22:38 Source: patient Mode of arrival: ambulatory Limitations: no limitations History of Present Illness HPI Narrative: Patient is a 21 year old female presenting to the emergency department today with right knee and right ankle pain after a fall. Patient states that she was at work when she slipped on water and hurt her right ankle and her right knee. Patient denies hitting her head with the incident. Patient denies any loss of consciousness with the incident. Patient denies any dizziness, lightheadedness, abdominal pain, nausea, vomiting, fever, chills, blurry vision, double vision, loss of vision, chest pain, difficulty breathing, shortness of breath, back pain, night sweats, pain with urination, increased urinary frequency, increased urinary urgency, blood in her urine or stool, syncope or a near syncopal episode, bowel incontinence, bladder incontinence, bowel retention, bladder retention, or any other complaints at this time. MD complaint: fall Onset (ago): hour(s) Fall from: standing Fall witnessed: no Place fall occurred: work Loss of consciousness: none Prolonged down time: no Symptoms prior to fall: none Context: tripped/slipped Location of injury - extremities: right: knee and ankle Severity: mild Severity scale (1-10): 3 Quality: dull Associated symptoms (after fall): denies Related Data Previous Rx's Medication Instructions Recorded L norgest/E estradiol-E estrad 1 tab PO DAILY 84 Days #84 ea 09/08/20 0.15 mg-30 mcg (84)/10 mcg(7) tabs,3mos (Seasonique) epinephrine 0.3 mg/0.3 mL 0.3 mg (0.3 mL) IM ONCE PRN #1 ea 10/22/20 injection, auto-injector (EpiPen) metronidazole 0.75 % vaginal gel 1 appful VAGINAL BEDTIME 5 Days 05/10/21 (Metrogel Vaginal) #70 g Allergies Allergy/AdvReac Type Severity Reaction Status Date / Time No Known Allergies Allergy Verified 05/06/21 15:33 Review of Systems Constitutional: Constitutional: Reports no additional constitutional complaints, Denies chills, Denies fever(s) and Denies night sweats Eyes: Eyes: Reports no additional eye complaints, Denies blurry vision, Denies change in vision, Denies diplopia, Denies eye discharge, Denies loss of vision and Denies eye pain ENT: Denies dizziness Cardiovascular: Cardiovascular: Reports no additional cardiovascular complaints, Denies chest pain, Denies lightheadedness, Denies Loss of Consciousness and Denies dyspnea Respiratory: Respiratory: Reports no additional respiratory complaints and Denies dyspnea Gastrointestinal: Gastrointestinal: Reports no additional gastrointestinal complaints, Denies abdominal pain, Denies melena, Denies hematochezia, Denies change in bowel habits and Denies change in stool character Genitourinary: Genitourinary: Denies hematuria, Denies urinary frequency, Denies dysuria, Denies urinary incontinence, Denies urinary hesitancy and Denies urinary urgency Musculoskeletal: Musculoskeletal: Reports no additional musculoskeletal complaints, Denies numbness and Denies tingling Comments: right knee pain and right ankle pain Neurologic: Denies dizziness, Denies loss of vision, Denies numbness and Denies tingling Psychiatric: Psychiatric: Reports no additional psychiatric complaints Endocrine: Endocrine: Reports no additional endocrine complaints Hematologic/Lymphatic: Hematologic/Lymphatic: Reports no additional hematologic/lymphatic complaints Allergic/Immunologic: Allergic/Immunologic: Reports no additional allergic/immunologic complaints [facility] Past Medical History Attestation statement: The following information was validated with the patient. Source: old records reviewed Medical History Gastritis Social History Social History Alcohol intake: never Patient Tobacco Use Status: Never used Tobacco Substance Use Type: Marijuana Advance Directives: No Advance Directives Information Provided: No Patient : No Gender identity: Female Physical Exam Vital Signs: Vital Signs: Last Vital Signs Temp 98.6 F 06/28/21 21:28 Pulse 96 06/28/21 21:28 Resp 16 06/28/21 21:28 BP 134/92 H 06/28/21 21:28 Pulse Ox 98 06/28/21 21:28 BMI result Body Mass Index 28.3 Const: General: cooperative, no acute distress, alert and awake Nutritional Appearance: well nourished Orientation/consciousness: patient oriented x3 Limitations: no limitations HENMT: Head: Yes normal to inspection and Yes atraumatic Ears: hearing grossly normal bilaterally and external ears normal General nose exam: Normal external nose present, no nasal discharge noted and no epistaxis Face and sinus: Yes normal facial exam, No abrasion and No laceration Mouth: Normal oral and palatal mucosa present, no drooling and no muffled voice Eyes: General: appearance normal, both eyes and all related structures Periorbital: periorbital findings normal Eyelids: Yes eyelids normal Conjunctivae: conjunctivae normal Pupils: Equal, round and reactive pupils present EOM: EOMs intact bilaterally Neck: Neck: Yes normal visual inspection, Yes full ROM and Yes no lymphadenopathy Chest: Chest palpation & inspection: normal inspection of the chest Resp: Effort & Inspection: normal respiratory effort and able to speak in complete sentences GI: Inspection: Yes normal to inspection Neuro: General: patient oriented x3 and moves all extremities Cranial nerves: Yes Equal, round and reactive pupils present Cognition (Neuro): normal cognition Motor exam (neuro): 5/5 motor strength present throughout Sensory Exam: Normal double simultaneous stimulation for sensation Coordination: [id number] test normal Extrem: Other: pain to palpation of the right anterior knee General: Yes normal to inspection, Yes full ROM and Yes capillary refill normal Psych: Appearance: grossly normal Mental Status: mental status grossly normal Affect: normal affect Attitude: cooperative Thought process: Normal thought process present Thought content: Normal thought content present Insight: Good insight present (Psych) Procedures Orthopedic Splinting/Casting Injury #1: Side: right Lower Extremity Injury Location: knee Lower Extremity Immobilizer: knee immobilizer Other Orthopedic Equipment: crutches MDM - Fall MDM Narrative Medical decision making narrative: Patient is a 21 year old female presenting to the emergency department today with right knee and right ankle pain after a fall. Patient's physical exam showed tenderness to palpation to the right anterior knee but was otherwise unremarkable. Patient's ROM, circulation, strength, and sensation were intact to the right lower extremity. Patient's right ankle and right knee x-rays showed no acute process. I explained my physical exam findings as well as all test results to the patient. I answered all questions asked by the patient. Patient's right knee was placed in a knee immobilizer and given crutches with specific instructions on how to use them. Patient's PMS was intact prior to and after immobilizer placement. I stressed the importance of the patient taking her medication as prescribed. I stressed the importance of the patient following up with her primary care provider and an orthopedist. I stressed the importance of the patient returning to the emergency department immediately if her symptoms were to worsen or if she were to develop any dizziness, shortness of breath, difficulty breathing, chest pain, blurry vision, loss of vision, nausea, vomiting, abdominal pain, fever, chills, back pain, or any other complaints. Patient verbalized agreement and understanding with this treatment plan and discharge. Differential Diagnosis Differential diagnosis: Likely dislocation and fracture Medical Records Attestation: I reviewed the patient's medical records. Imaging Data Right knee and right ankle x-ray: Attestation: I personally reviewed and interpreted this imaging study as follows: My impression: No acute fractures. Radiologist's impression: EXAMINATION: 1.? RADIOGRAPHS RIGHT KNEE 2.? RADIOGRAPHS RIGHT ANKLE CLINICAL INFORMATION: Diffuse swelling after fall.? COMPARISON: None? TECHNIQUE: 2 views of the right knee and 3 views of the right ankle were obtained. FINDINGS: Right knee: No fracture or dislocation. No suprapatellar joint effusion. No appreciable degenerative changes. No focal soft tissue swelling of the anterior knee. Right ankle: Visualized portion of the distal tibia and fibula demonstrate no fracture. Ankle mortise is maintained. No focal soft tissue swelling of the ankle. No appreciable degenerative changes. No gross ankle joint effusion. ? XR/XR knee RT 2V IMPRESSION: Unremarkable radiographs of the right knee and right ankle.? Dictated By: RUBY LOUIS MD Signed By: Electronically signed by RUBY LOUIS MD 06/28/21 3601 Discharge Plan Discharge Clinical Impression: Acute knee pain, Acute ankle pain Patient Disposition: Home, Self-Care Instructions: Crutch Instructions (ED), Knee Pain (ED), Knee Immobilizer (ED) Additional Instructions: Call to schedule a follow up appointment with an Orthopedic provider. Follow up with your primary care provider. Return to the emergency department immediately if your symptoms worsen or if you develop any dizziness, shortness of breath, difficulty breathing, chest pain, blurry vision, loss of vision, nausea, vomiting, abdominal pain, fever, chills, back pain, or any other complaints. Prescriptions: No Action metronidazole [Metrogel Vaginal] 0.75 % gel 1 appful vaginal BEDTIME 5 Days Qty: 70 0RF epinephrine [EpiPen] 0.3 mg/0.3 mL auto-injector 0.3 mg IM ONCE PRN (Reason: extreme reaction) Qty: 1 0RF Rx Instructions: for 2 doses L norgest/e.estradiol-e.estrad [Seasonique] 0.15 mg-30 mcg (84)/10 mcg (7) tablets,dose pack,3 month 1 tab PO DAILY 84 Days Qty: 84 4RF Referrals: Bg Schroeder MD [Physician] - 2 days [place] [Primary Care Provider] - 2 days Stand Alone Forms: Work/School Release Print Language: Sinhala
== END 2021-06-29 00:33 | disposition home or self-care (01) ==
PROVIDERS: Emergency Provider Emergency Medicine
DX: Z04.2 Encounter for examination and observation following work accident (principal); G89.11 Acute pain due to trauma; M25.561 Pain in right knee; M25.571 Pain in right ankle and joints of right foot
CPT/HCPCS: 73560; 73600; 99283; 99284

== ENCOUNTER → 2021-07-05 08:29 | Outpatient (BNVA) | payer OTHER, SELFPAY | PROVIDERS: Visit Provider Internal Medicine | DX: Z13.89 Encounter for screening for other disorder (principal) | CPT/HCPCS: 99202 ==

== ENCOUNTER 2021-07-11 08:53 | Outpatient (REF) | payer OTHER, SELFPAY ==
--- NOTE | ~2021-07-11 | XR_ITS ---
EXAMINATION: RIGHT KNEE. CLINICAL INFORMATION: Pain in right knee. COMPARISON: None TECHNIQUE: [place] patella view. FINDINGS: A single sunrise patellar views reveals a patellofemoral joint space is normal. No bony erosive changes. There are no loose bodies. The soft tissues are normal. XR/XR knee RT 1V IMPRESSION: Unremarkable right patellofemoral compartment.
== END 2021-07-11 08:54 | disposition home or self-care (01) ==
LOC: HO.HOSX 08:53
PROVIDERS: Visit Provider Physician Assistant
DX: S80.01XA Contusion of right knee, initial encounter (principal); M22.2X1 Patellofemoral disorders, right knee
CPT/HCPCS: 73560; 99202

== ENCOUNTER → 2021-07-19 09:00 | Outpatient (BNVA) | payer OTHER, SELFPAY | PROVIDERS: Visit Provider Internal Medicine | DX: Z13.89 Encounter for screening for other disorder (principal) | CPT/HCPCS: 99213 ==

== ENCOUNTER → 2021-08-11 10:55 | Outpatient (BNVA) | payer OTHER, SELFPAY | PROVIDERS: Visit Provider Internal Medicine | DX: Z13.89 Encounter for screening for other disorder (principal) | CPT/HCPCS: 99213 ==

== ENCOUNTER 2021-08-31 19:00 | Outpatient (REF) | payer OTHER, SELFPAY ==
[2021-08-31 19:38] LABS: COVID-19 Test Positive (Negative)
== END 2021-08-31 19:01 | disposition home or self-care (01) ==
LOC: HO.LAB 19:00
PROVIDERS: Visit Provider Internal Medicine
DX: Z20.822 Contact with and (suspected) exposure to COVID-19 (principal)
CPT/HCPCS: 87635

== ENCOUNTER 2021-09-02 16:54 | Emergency (ER) | payer MEDICAID, SELFPAY ==
--- NOTE | ~2021-09-02 | XR_ITS ---
EXAMINATION: XR chest 2V CLINICAL INFORMATION: Reason for Exam cough, fevers, chest wall pain COMPARISON: Chest radiograph 01/04/2017 TECHNIQUE: 2 views of the chest XR/XR chest 2V FINDINGS/IMPRESSION: * Clear lungs. * No pneumothorax or pleural effusion. * Normal cardiomediastinal silhouette.
[2021-09-02 16:59] VITALS: BP 125/80; PULSE 90; O2SAT 100
[2021-09-02 17:12] VITALS: BP 111/76; PULSE 75; RESP 16; TEMP 36.2; O2SAT 100; BMI 23.2
--- NOTE | 2021-09-02 18:42 | ED.URI ---
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 Reports that she tested negative for COVID on Sunday. Then retested on Sunday and positive for COVID. Reports that she is vaccinated to COVID. Denies any sick contacts that she is aware. She reports she has been taking Motrin Tylenol in providing symptomatic relief. Reports that she is also concerned due to she has been having yellow/white colored discharge and is very itchy in the vaginal area and reports ?I think I have yeast infection?. Denies any thoughts of STDs. Denies any measured fevers, dizziness, headaches, neck pain/stiffness, trouble swallowing or breathing, dyspnea on exertion, orthopnea, palpitations, paresthesias, nausea/vomiting/diarrhea constipation, black or bloody stools, abdominal pain, back pain, rashes, lower extremity edema or calf tenderness, recent travel, hematuria, dysuria or any other symptoms complaints or concerns at this time. MD elicited complaint: cough Pertinent past history: other (See above) Onset (ago): day(s) (5) Consistency: constant Severity: mild Description of mucous: clear, watery, yellow and green Able to tolerate fluids by mouth: Yes Exacerbating factors: deep breaths (/coughing) Relieving factors: nothing Context: other (Works in a hospital) Associated symptoms: chills, myalgias, rhinorrhea, nasal congestion, cough, chest pain and shortness of breath Treatments prior to arrival: acetaminophen and ibuprofen Related Data Previous Rx's Medication Instructions Recorded L norgest/E estradiol-E estrad 1 tab PO DAILY 84 Days #84 ea 09/08/20 0.15 mg-30 mcg (84)/10 mcg(7) tabs,3mos (Seasonique) epinephrine 0.3 mg/0.3 mL 0.3 mg (0.3 mL) IM ONCE PRN #1 ea 10/22/20 injection, auto-injector (EpiPen) metronidazole 0.75 % vaginal gel 1 appful VAGINAL BEDTIME 5 Days 05/10/21 (Metrogel Vaginal) #70 g albuterol sulfate 90 mcg/actuation 1 inh INHALATION QID PRN #8.5 g 09/02/21 aerosol inhaler azithromycin 250 mg tablet See Rx Instructions PO .COMPLEX #6 09/02/21 tab codeine 10 mg-guaifenesin 100 mg/5 5 ml PO Q6H PRN #120 ml 09/02/21 mL oral liquid (Guaifenesin AC) fluconazole 150 mg tablet 150 mg PO Q3D #2 tab 09/02/21 (Diflucan) Allergies Allergy/AdvReac Type Severity Reaction Status Date / Time No Known Allergies Allergy Verified 09/02/21 18:07 Review of Systems Review of Systems: Constitutional : + chills/fatigue/malaise, No Weight loss, No Fever, No Night Sweats ENT/Mouth : + nasal congestion/rhinorrhea, No Hearing loss, No Ear Pain, No Sinus Pain, No Hoarseness, No sore throat, No Swallowing Difficulty Eyes: No Eye Pain, No Swelling, No Redness, No Foreign Body, No Discharge, No Vision Changes Cardiovascular : No Chest Pain, + SOB, No Dyspnea on Exertion, No Orthopnea, No Edema, No Palpitations Respiratory : + Cough, No Sputum, No Wheezing, No Smoke Exposure, + Dyspnea Gastrointestinal : No Nausea, No Vomiting, No Diarrhea, No Constipation, No abdominal Pain, No Hematochezia, No Melena Genitourinary : no irregular bleeding, No Dysuria, No Urinary Frequency, No Hematuria, No Urinary Incontinence, No Urgency, No Flank Pain, No Urinary Flow Changes, No Hesitancy Musculoskeletal : No joint pain, + Myalgias, No Joint Swelling Skin : No Skin Lesions, No rash Neuro : No Weakness, No Numbness, No Paresthesias, No Loss of Consciousness, No Dizziness, No Headache Psych : No Anxiety/Panic, No Depression, No SI/HI/AH/VH, No Social Issues, Heme/Lymph: No Bruising, No Bleeding,No Lymphadenopathy Endocrine : No Polyuria, No Polydipsia, No Temperature Intolerance Yes all other systems are reviewed and are negative PMFSH Past Medical History Attestation statement: The following information was validated with the patient. 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 Blood pressure normal. Heart rate normal. Respiration rate normal. Temperature normal. Oxygen saturation normal. Appearance: Alert. Oriented X3. No acute distress. Head: Normal external exam. Normocephalic. Atraumatic. Eyes: PERRLA. EOMI. Conjunctiva and sclera normal. Eyelids normal. ENT: EAC normal. TM's Normal. Pharynx normal. Uvula midline. Moist mucous membranes. No lesions/ulcerations or masses noted on the tongue. Normal voice. No trismus noted. No drooling noted. No muffled voice noted. Neck: Normal inspection. Neck supple. FROM. No adenopathy. Thyroid Normal. No meningeal signs. No neck mass noted. No signs of trauma noted. CVS: Normal heart rate and rhythm. Heart sound normal. Pulses normal throughout. No murmurs/rales/gallops. Respiratory: No respiratory distress. Painless inspiration. Breath sounds normal. No wheezes/rales/rhonchi noted. Chest nontender. No crepitus is noted. No signs of trauma noted. No accessory muscle usage noted or decreased air movement noted. No signs of trauma. Abdomen: Soft and nontender. Bowel sounds normal in all 4 quadrants. No distention noted. No organomegaly noted. No visible injury noted. Back: No CVA tenderness. Full range of motion noted. Nontender. No signs of trauma. Patient neuro intact bilaterally and distally on all 4 extremities. Patient's reflexes intact bilaterally and distally on all 4 extremities. No rashes/lesion/induration/fluctuance or signs of infection noted. Skin: Skin warm and dry. Normal skin color. Normal skin turgor. No rashes/lesions/lacerations noted. Extremities: No lower extremity edema. No calf tenderness is noted. Extremities exhibit normal range of motion and nontender. Neuro: Oriented X 3. No motor deficit. No sensory deficit. Reflexes normal. Normal steady gait. No focal neuro deficits noted. CN's II-XII intact bilaterally? Vascular: + radial pulses/+ 2 distal pedal pulses/+2 dorsalis pedis b/l. Normal cap refill. No cyanosis noted to upper extremity nails and lower extremity toes nails. Course Course Course Narrative: Patient positive for COVID although she already knew she had COVID. Chest x-ray negative for pneumonia or any other acute processes. She is concerned that she probably has a yeast infection and wants to be treated. She wanted to self swab. Therefore she self swab for gonorrhea/chlamydia/bacterial vaginosis/Trichomonas/yeast. Will treat for yeast infection. She does not believe she has an STD therefore those labs are pending and we will call her if any positive results or I explained to her she can see on the patient portal. I explained to her that she has to the self isolate per CDC guidelines and per Work connection guidelines and to return if any new or worsening symptoms. Patient understands agrees with this plan. MDM - URI/Sore Throat Medical Records Attestation: I reviewed the patient's medical records. Lab Data Attestation: I reviewed the patient's lab results. Imaging Data Chest x-ray: Attestation: I personally reviewed and interpreted this imaging study as follows: Radiologist's impression: EXAMINATION: XR chest 2V CLINICAL INFORMATION: Reason for Exam cough, fevers, chest wall pain COMPARISON: Chest radiograph? 01/04/2017 TECHNIQUE: 2 views of the chest XR/XR chest 2V FINDINGS/IMPRESSION: ? *? Clear lungs. ? *? No pneumothorax or pleural effusion. ? *? Normal cardiomediastinal silhouette. Discharge Plan Discharge Clinical Impression: Acute bronchitis due to 2019-nCoV, Jennifer vaginitis Patient Disposition: Home, Self-Care Instructions: Acute Bronchitis (ED), Yeast Infection (ED), COVID-19 (Coronavirus Disease 2019) (ED) Prescriptions: New azithromycin 250 mg tablet See Rx Instructions PO .COMPLEX Qty: 6 0RF Rx Instructions: take 500 mg today (day 1), then 250 mg for 4 days (days 2-5) codeine-guaifenesin [Guaifenesin AC] 10-100 mg/5 mL liquid 5 ml PO Q6H PRN (Reason: cold symptoms) Qty: 120 0RF albuterol sulfate 90 mcg/actuation HFA aerosol inhaler 1 inh inhalation QID PRN (Reason: shortness of breath or wheezing) Qty: 8.5 0RF fluconazole [Diflucan] 150 mg tablet 150 mg PO Q3D Qty: 2 0RF Rx Instructions: May repeat in 72 hours if symptoms persist No Action metronidazole [Metrogel Vaginal] 0.75 % gel 1 appful vaginal BEDTIME 5 Days Qty: 70 0RF epinephrine [EpiPen] 0.3 mg/0.3 mL auto-injector 0.3 mg IM ONCE PRN (Reason: extreme reaction) Qty: 1 0RF Rx Instructions: for 2 doses L norgest/e.estradiol-e.estrad [Seasonique] 0.15 mg-30 mcg (84)/10 mcg (7) tablets,dose pack,3 month 1 tab PO DAILY 84 Days Qty: 84 4RF Referrals: [facility] [Primary Care Provider] - 2 days
[2021-09-03 13:52] LABS: BV Int Neg Control Negative (Negative); BV Int Pos Control Positive (Positive)
[2021-09-03 16:55] LABS: CT PCR NOT DETECTED (Not Detect.); NG PCR NOT DETECTED (Not Detect.)
== END 2021-09-02 19:34 | disposition home or self-care (01) ==
LOC: HO.ED 18:45
PROVIDERS: Physician Assistant Medical; Emergency Provider Internal Medicine
DX: U07.1 COVID-19 (principal); J20.8 Acute bronchitis due to other specified organisms; B37.3 Candidiasis of vulva and vagina
CPT/HCPCS: 71046; 87480; 87491; 87510; 87591; 87660; 99282; 99283

== ENCOUNTER 2021-12-02 11:42 | Outpatient (REF) | payer MEDICAID, SELFPAY ==
[2021-12-02 14:56] LABS: CT PCR NOT DETECTED (Not Detect.); NG PCR NOT DETECTED (Not Detect.)
[2021-12-03 09:44] LABS: BV Int Neg Control Negative (Negative); BV Int Pos Control Positive (Positive)
== END 2021-12-02 11:43 | disposition home or self-care (01) ==
LOC: HO.LAB 11:42
PROVIDERS: Visit Provider Advanced Practice Midwife
DX: Z11.3 Encounter for screening for infections with a predominantly sexual mode of transmission (principal)
CPT/HCPCS: 87480; 87491; 87510; 87591; 87660

== ENCOUNTER 2022-01-11 10:42 | Outpatient (REF) | payer MEDICAID, SELFPAY ==
[2022-01-11 16:02] LABS: CT PCR NOT DETECTED (Not Detect.); NG PCR NOT DETECTED (Not Detect.)
[2022-01-12 13:09] LABS: BV Int Neg Control Negative (Negative); BV Int Pos Control Positive (Positive)
== END 2022-01-11 10:43 | disposition home or self-care (01) ==
LOC: HO.LNP 10:42
PROVIDERS: Visit Provider Advanced Practice Midwife
DX: N76.0 Acute vaginitis (principal); B96.89 Other specified bacterial agents as the cause of diseases classified elsewhere; Z11.3 Encounter for screening for infections with a predominantly sexual mode of transmission; Z30.09 Encounter for other general counseling and advice on contraception; Z79.899 Other long term (current) drug therapy
CPT/HCPCS: 87480; 87491; 87510; 87591; 87660; 99212

== ENCOUNTER 2022-02-06 16:44 | Outpatient (REF) | payer OTHER, SELFPAY ==
[2022-02-06 17:30] LABS: COVID-19 Test Negative (Negative); IDNOW Serial# 9DB6401D
== END 2022-02-06 16:45 | disposition home or self-care (01) ==
LOC: HO.LAB 16:44
PROVIDERS: Visit Provider Internal Medicine
DX: Z20.822 Contact with and (suspected) exposure to COVID-19 (principal)
CPT/HCPCS: 87635

== ENCOUNTER → 2022-02-14 13:03 | Outpatient (BNVA) | payer MEDICAID, SELFPAY | PROVIDERS: Visit Provider Advanced Practice Midwife | DX: Z30.42 Encounter for surveillance of injectable contraceptive (principal) | CPT/HCPCS: 96372; 99211 ==

== ENCOUNTER → 2022-05-08 12:55 | Outpatient (BNVA) | payer MEDICAID, SELFPAY | PROVIDERS: Visit Provider Advanced Practice Midwife | DX: Z13.89 Encounter for screening for other disorder (principal) ==

== ENCOUNTER → 2022-05-09 11:02 | Outpatient (BNVA) | payer MEDICAID, SELFPAY | PROVIDERS: Visit Provider Advanced Practice Midwife | DX: Z30.42 Encounter for surveillance of injectable contraceptive (principal) | CPT/HCPCS: 96372; 99211 ==

== ENCOUNTER → 2022-07-25 12:59 | Outpatient (BNVA) | payer MEDICAID, SELFPAY | PROVIDERS: Visit Provider Advanced Practice Midwife | DX: Z30.42 Encounter for surveillance of injectable contraceptive (principal) | CPT/HCPCS: 96372; 99211 ==

== ENCOUNTER 2022-07-26 17:43 | Emergency (ER) | payer MEDICAID, SELFPAY ==
[2022-07-26 17:46] VITALS: BP 128/77; PULSE 88; RESP 18; TEMP 36.2; O2SAT 99; BMI 26.9
--- NOTE | 2022-07-26 17:50 | ED.ABDPAIN ---
HPI - Abdominal Pain General Chief Complaint: Abdominal Pain Stated Complaint: chest pain, chest through to back Related Data Previous Rx's Medication Instructions Recorded epinephrine 0.3 mg/0.3 mL 0.3 mg (0.3 mL) IM ONCE PRN 10/22/20 injection, auto-injector (EpiPen) extreme reaction #1 ea albuterol sulfate 90 mcg/actuation 1 inh inhalation QID PRN shortness 09/02/21 aerosol inhaler of breath or wheezing #8.5 grams L norgest/E estradiol-E estrad 1 tab PO DAILY #91 tabs 10/10/21 0.15 mg-30 mcg (84)/10 mcg(7) tabs,3mos medroxyprogesterone 150 mg/mL 150 mg IM Q12W #1 mL 12/02/21 intramuscular suspension (Depo-Provera) metronidazole 0.75 % (37.5 mg/5 1 appful vaginal BID 5 days #70 01/11/22 gram) vaginal gel grams Allergies Allergy/AdvReac Type Severity Reaction Status Date / Time No Known Allergies Allergy Verified 07/26/22 17:46 [facility] Past Medical History Medical History Gastritis Family History Family History Paternal Aunt Uterine cancer Social History Social History Alcohol intake: never Patient Tobacco Use Status: Never used Tobacco Substance Use Type: Marijuana Advance Directives: No Advance Directives Information Provided: No 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 Deferred additional HPI, ROS, PE to primary provider. 22-year-old female here with upper abdominal pain with radiation to left chest wall since yesterday. Will obtain labs, UA, ur preg. VSS Medical Decision Making Lab Data 07/26/22 18:07 07/26/22 18:07 Labs: Lab Results 07/26/22 07/26/22 07/26/22 Range/Units 18:07 18:07 18:09 WBC 8.4 (4.8-10.8) X10*3/uL RBC 4.53 (4.20-5.50) X10*6/uL Hgb 13.2 (12.0-16.0) g/dl Hct 40.7 (37.0-47.0) % MCV 89.8 (80.0-98.0) fL MCH 29.1 (27.0-33.0) pg MCHC 32.4 (31.0-35.0) g/dl RDW 12.6 (11.0-16.0) % Plt Count 185 (160-400) X10*3/uL MPV 10.9 (9.4-12.3) fL Immature Gran % (Auto) 0.4 (0.0-0.4) % Neut % (Auto) 40.2 L (45-73) % Lymph % (Auto) 48.7 H (20-40) % [place] % (Auto) 7.4 (2-11) % Eos % (Auto) 2.7 (0-4) % Baso % (Auto) 0.6 (0-2) % Lymph # (Auto) 4.1 (1.2-4.9) X10*3/uL [place] # (Auto) 0.6 (0.1-1.2) X10*3/uL Eos # (Auto) 0.2 (0.0-0.4) X10*3/uL Baso # (Auto) 0.1 (0.0-0.2) X10*3/uL Abs Immat Gran (auto) 0.03 (0.00-0.03) X10*3/uL Absolute Neuts (auto) 3.4 (2.0-8.3) x10*3/uL Absolute Nucleated RBC 0.000 (0.0-0.012) X10*3/uL Nucleated RBC % (auto) 0.0 (0.0-0.2) /100WBC Sodium 141 (135-145) mmol/L Potassium 3.6 (3.3-5.1) mmol/L Chloride 110 H (96-108) mmol/L Carbon Dioxide 24 (22-29) mmol/L Anion Gap 11 L (12-20) BUN 11 (9-16) mg/dL Creatinine 0.72 (0.5-1.4) mg/dL Estim Creat Clear Calc 100.4 Estimated GFR > 60 Random Glucose 75 (60-115) mg/dL Calcium 9.3 (8.4-10.2) mg/dL Total Bilirubin 0.7 (0.0-1.0) mg/dL Direct Bilirubin 0.2 (0.0-0.5) mg/dL AST 18 (5-31) U/L ALT 23 (0-31) U/L Alkaline Phosphatase 66 (39-117) U/L Total Protein 6.8 (6.5-8.0) g/dL Albumin 4.3 (3.5-5.0) g/dL Lipase 22 (8-78) U/L Urine Color Yellow Urine Appearance Clear Urine pH 5.5 (5.0-9.0) Ur Specific [place] >= 1.030 H (1.005-1.025) Urine Protein Trace (Neg-Trace) mg/dL Urine Glucose (UA) Negative (Negative) mg/dL Urine Ketones Trace (Negative) mg/dL Urine Blood Negative (Negative) Urine Nitrite Negative (Negative) Ur Leukocyte Esterase Negative (Negative) Urine Test (NEGATIVE) 07/26/22 Range/Units 18:09 WBC (4.8-10.8) X10*3/uL RBC (4.20-5.50) X10*6/uL Hgb (12.0-16.0) g/dl Hct (37.0-47.0) % MCV (80.0-98.0) fL MCH (27.0-33.0) pg MCHC (31.0-35.0) g/dl RDW (11.0-16.0) % Plt Count (160-400) X10*3/uL MPV (9.4-12.3) fL Immature Gran % (Auto) (0.0-0.4) % Neut % (Auto) (45-73) % Lymph % (Auto) (20-40) % [place] % (Auto) (2-11) % Eos % (Auto) (0-4) % Baso % (Auto) (0-2) % Lymph # (Auto) (1.2-4.9) X10*3/uL [place] # (Auto) (0.1-1.2) X10*3/uL Eos # (Auto) (0.0-0.4) X10*3/uL Baso # (Auto) (0.0-0.2) X10*3/uL Abs Immat Gran (auto) (0.00-0.03) X10*3/uL Absolute Neuts (auto) (2.0-8.3) x10*3/uL Absolute Nucleated RBC (0.0-0.012) X10*3/uL Nucleated RBC % (auto) (0.0-0.2) /100WBC Sodium (135-145) mmol/L Potassium (3.3-5.1) mmol/L Chloride (96-108) mmol/L Carbon Dioxide (22-29) mmol/L Anion Gap (12-20) BUN (9-16) mg/dL Creatinine (0.5-1.4) mg/dL Estim Creat Clear Calc Estimated GFR Random Glucose (60-115) mg/dL Calcium (8.4-10.2) mg/dL Total Bilirubin (0.0-1.0) mg/dL Direct Bilirubin (0.0-0.5) mg/dL AST (5-31) U/L ALT (0-31) U/L Alkaline Phosphatase (39-117) U/L Total Protein (6.5-8.0) g/dL Albumin (3.5-5.0) g/dL Lipase (8-78) U/L Urine Color Urine Appearance Urine pH (5.0-9.0) Ur Specific [place] (1.005-1.025) Urine Protein (Neg-Trace) mg/dL Urine Glucose (UA) (Negative) mg/dL Urine Ketones (Negative) mg/dL Urine Blood (Negative) Urine Nitrite (Negative) Ur Leukocyte Esterase (Negative) Urine Test NEGATIVE (NEGATIVE) Discharge Plan Discharge Clinical Impression: Abdominal pain Patient Disposition: Elopement Prescriptions: No Action L norgest/e.estradiol-e.estrad 0.15 mg-30 mcg (84)/10 mcg (7) tablets,dose pack,3 month 1 tab PO DAILY Qty: 91 4RF epinephrine [EpiPen] 0.3 mg/0.3 mL auto-injector 0.3 mg IM ONCE PRN (Reason: extreme reaction) Qty: 1 0RF Rx Instructions: for 2 doses albuterol sulfate 90 mcg/actuation HFA aerosol inhaler 1 inh inhalation QID PRN (Reason: shortness of breath or wheezing) Qty: 8.5 0RF medroxyprogesterone [Depo-Provera] 150 mg/mL suspension 150 mg IM Q12W Qty: 1 5RF metronidazole 0.75 % (37.5mg/5 gram) gel 1 appful vaginal BID 5 Days Qty: 70 1RF Discharge Date/Time: 07/26/22 21:46
--- NOTE | 2022-07-26 17:51 | ECG_ITS ---
Test Reason : CHEST PAIN Blood Pressure : / mmHG Vent. Rate : 088 BPM Atrial Rate : 088 BPM P-R Int : 140 ms QRS Dur : 078 ms QT Int : 352 ms P-R-T Axes : 051 061 037 degrees QTc Int : 425 ms Normal sinus rhythm Normal ECG No previous ECGs available Referred By: Bianca Smith Electronically Signed By:ANGELITA CHICAS MD
[2022-07-26 18:18] LABS: Basophils Absolute Auto 0.1 X10*3/uL (0.0-0.2); Basophils Percent Auto 0.6 % (0-2); Eosinophils Absolute Auto 0.2 X10*3/uL (0.0-0.4); Eosinophils Percent Auto 2.7 % (0-4); Hematocrit 40.7 % (37.0-47.0); Hemoglobin 13.2 g/dl (12.0-16.0); Imm Gran Abs Auto 0.03 X10*3/uL (0.00-0.03); Imm Gran Pct Auto 0.4 % (0.0-0.4); Lymphocytes Absolute Auto 4.1 X10*3/uL (1.2-4.9); Lymphocytes Percent Auto 48.7 % (20-40); MANUAL DIFF FLAG NO; Mean Corpuscular HGB Conc 32.4 g/dl (31.0-35.0); Mean Corpuscular Hemoglobin 29.1 pg (27.0-33.0); Mean Corpuscular Volume 89.8 fL (80.0-98.0); Mean Platelet Volume 10.9 fL (9.4-12.3); Monocytes Absolute Auto 0.6 X10*3/uL (0.1-1.2); Monocytes Percent Auto 7.4 % (2-11); Neutrophils Absolute Auto 3.4 x10*3/uL (2.0-8.3); Neutrophils Percent Auto 40.2 % (45-73); Platelet Count 185 X10*3/uL (160-400); Red Blood Count 4.53 X10*6/uL (4.20-5.50); Red Cell Distribution Width 12.6 % (11.0-16.0); White Blood Count 8.4 X10*3/uL (4.8-10.8)
[2022-07-26 18:21] LABS: Appearance Urine Clear; Color Urine Yellow; Glucose Urine UA Negative (Negative); Leukocyte Esterase Urine Negative (Negative); Nitrite Urine Negative (Negative); PH 5.5 (5.0-9.0); Specific Gravity - Urine >= 1.030 (1.005-1.025); Urine Blood Negative (Negative); Urine Ketones Trace mg/dL (Negative); Urine Protein Trace mg/dL (Neg-Trace)
[2022-07-26 18:22] LABS: UPreg QC Valid YES; Urine Pregnancy NEGATIVE (NEGATIVE)
[2022-07-26 18:34] LABS: Alanine Aminotransferase 23 U/L (0-31); Albumin Level 4.3 g/dL (3.5-5.0); Alkaline Phosphatase 66 U/L (39-117); Anion Gap 11 (12-20); Aspartate Amino Transferase 18 U/L (5-31); Bilirubin Direct 0.2 mg/dL (0.0-0.5); Bilirubin Total 0.7 mg/dL (0.0-1.0); Blood Urea Nitrogen 11 mg/dL (9-16); Calcium 9.3 mg/dL (8.4-10.2); Carbon Dioxide 24 mmol/L (22-29); Chloride 110 mmol/L (96-108); Creatinine Clr Calc Pharmacy 100.4; Estimated Glomerular Filt Rate > 60; Glucose Random 75 mg/dL (60-115); Lipase 22 U/L (8-78); Potassium 3.6 mmol/L (3.3-5.1); Sodium 141 mmol/L (135-145); Total Protein 6.8 g/dL (6.5-8.0)
== END 2022-07-26 21:46 | disposition left against medical advice (07) ==
PROVIDERS: Nurse Practitioner Family; Emergency Provider Emergency Medicine
DX: R10.9 Unspecified abdominal pain (principal); R07.9 Chest pain, unspecified; Z79.899 Other long term (current) drug therapy
CPT/HCPCS: 36415; 80048; 80076; 81003; 81025; 83690; 85025; 93005; 99283

== ENCOUNTER 2022-07-29 23:04 | Emergency (ER) | payer MEDICAID, SELFPAY ==
[2022-07-29 23:19] VITALS: BP 114/61; PULSE 90; RESP 20; TEMP 36.7; O2SAT 99; BMI 26.0
[2022-07-29 23:59] VITALS: BP 100/58; PULSE 94; RESP 18; TEMP 37.1; O2SAT 97
[2022-07-30 00:09] LABS: Hematocrit 38.6 % (37.0-47.0); Hemoglobin 12.6 g/dl (12.0-16.0); Mean Corpuscular HGB Conc 32.6 g/dl (31.0-35.0); Mean Corpuscular Hemoglobin 28.8 pg (27.0-33.0); Mean Corpuscular Volume 88.3 fL (80.0-98.0); Mean Platelet Volume 10.7 fL (9.4-12.3); Platelet Count 187 X10*3/uL (160-400); Red Blood Count 4.37 X10*6/uL (4.20-5.50); Red Cell Distribution Width 12.8 % (11.0-16.0); White Blood Count 9.5 X10*3/uL (4.8-10.8)
--- NOTE | 2022-07-30 00:13 | PC.NURSE ---
pt states back pain began on Sunday and has worsened states pain radiates from midback on the L side to underneath L breast pt states she grew concerned since the pain is now accompanied by a tingling sensation denies n/v/dizziness origin of pain unknown; pt states she did not injure it
[2022-07-30 00:25] LABS: Appearance Urine Cloudy; Color Urine Yellow; Glucose Urine UA Negative (Negative); Leukocyte Esterase Urine Small (1+) (Negative); Nitrite Urine Negative (Negative); Specific Gravity - Urine >= 1.030 (1.005-1.025); UMIC TRIGGER UACC YES; Urine Blood Negative (Negative); Urine Ketones Trace mg/dL (Negative); Urine Protein 30 (1+) mg/dL (Neg-Trace)
[2022-07-30 00:31] LABS: Alanine Aminotransferase 23 U/L (0-31); Alkaline Phosphatase 61 U/L (39-117); Anion Gap 12 (12-20); Aspartate Amino Transferase 17 U/L (5-31); Bilirubin Total 0.5 mg/dL (0.0-1.0); Blood Urea Nitrogen 10 mg/dL (9-16); Calcium 9.1 mg/dL (8.4-10.2); Carbon Dioxide 23 mmol/L (22-29); Chloride 111 mmol/L (96-108); Creatinine Clr Calc Pharmacy 85.3; Estimated Glomerular Filt Rate > 60; Glucose Random 90 mg/dL (60-115); Potassium 4.2 mmol/L (3.3-5.1); Sodium 142 mmol/L (135-145); Total Protein 6.4 g/dL (6.5-8.0)
--- NOTE | 2022-07-30 00:36 | ED_ITS ---
HPI - Back Pain/Injury General Chief Complaint: Back Pain/Injury Stated Complaint: sharp back pain Time Seen by Provider: 07/30/22 00:12 Source: patient Mode of arrival: ambulatory Limitations: no limitations History of Present Illness HPI Narrative: 22-year-old female who presents emergency department for evaluation chest and thoracic back pain. The patient states that she woke up with the pain on 07/25/2022 (5 days prior to arrival). She points to her sternum, left chest and left posterior chest when asked to localize the pain. She states the pain is a constant, tightness/pressure-like pain which is worse with breathing and with moving. She denied shortness of breath or dyspnea on exertion she states she does have a ?tingly sensation ?in her left posterior chest. She states the pain is been constant. She has been taking ibuprofen and Tylenol with only minimal relief for the pain. The patient denied fever, chills, cough. She denies pain, swelling in her extremities. She has not been on any long trips. She does not take estrogen but does take Depo-Provera and did have a Depo-Provera shot on 07/25/2022. 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 She does not recount any injuries to lead to her pain. The patient did come to the emergency department on 07/26/2022 however left prior to being evaluated in the emergency department secondary to a long waiting time. She did have a laboratory evaluation at that time which revealed a normal CBC, CMP, urinalysis with a negative urine test. She had an EKG which revealed a normal sinus rhythm rate of 88, no ST segment elevation or depression. Related Data Previous Rx's Medication Instructions Recorded epinephrine 0.3 mg/0.3 mL 0.3 mg (0.3 mL) IM ONCE PRN 10/22/20 injection, auto-injector (EpiPen) extreme reaction #1 ea albuterol sulfate 90 mcg/actuation 1 inh inhalation QID PRN shortness 09/02/21 aerosol inhaler of breath or wheezing #8.5 grams L norgest/E estradiol-E estrad 1 tab PO DAILY #91 tabs 10/10/21 0.15 mg-30 mcg (84)/10 mcg(7) tabs,3mos medroxyprogesterone 150 mg/mL 150 mg IM Q12W #1 mL 12/02/21 intramuscular suspension (Depo-Provera) metronidazole 0.75 % (37.5 mg/5 1 appful vaginal BID 5 days #70 01/11/22 gram) vaginal gel grams cyclobenzaprine 10 mg tablet 10 mg PO TID PRN muscle pain or 07/30/22 spasm #20 tabs ketorolac 10 mg tablet 10 mg PO Q6H PRN pain 5 days #20 07/30/22 tabs Allergies Allergy/AdvReac Type Severity Reaction Status Date / Time No Known Allergies Allergy Verified 07/26/22 17:46 Review of Systems Review of Systems: Yes all other systems are reviewed and are negative [facility] Past Medical History [facility] Narrative: Past medical history: Gastritis, anxiety. 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 She denies tobacco, alcohol and drug use. 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 Gender identity: Female Physical Exam Vital Signs: Vital Signs: Last Vital Signs Temp 98.8 F 07/29/22 23:59 Pulse 94 07/29/22 23:59 Resp 18 07/29/22 23:59 BP 100/58 L 07/29/22 23:59 Pulse Ox 97 07/29/22 23:59 O2 Del Method Room Air 07/29/22 23:59 BMI result Body Mass Index 26.0 Const: General: cooperative and no acute distress Orientation/consciousness: oriented to person and oriented to place Limitations: no limitations HEENT: Head: Yes normal to inspection, Yes normocephalic and Yes atraumatic Ears: external ears normal General nose exam: Normal external nose present Face and sinus: Yes normal facial exam Mouth: Normal oral and palatal mucosa present Throat: Yes posterior oropharynx normal Eyes: General: appearance normal, both eyes and all related structures Pupils: Equal, round and reactive pupils present Neck: Neck: Yes normal visual inspection, Yes no lymphadenopathy, Yes trachea midline and Yes supple Chest: Other: Patient has tenderness with palpation over her sternum and left costochondral joints, she also has tenderness palpation of her thoracic spine and paraspinal muscles in the thoracic area. Resp: Effort & Inspection: normal respiratory effort and able to speak in complete sentences Auscultation: clear to auscultation bilaterally Cardio: Rate: regular rate Rhythm: regular rhythm Heart sounds: S1 normal heart sound present, S2 normal heart sound present and no murmurs GI: Inspection: Yes normal to inspection Palpation (GI): Soft to palpation, nontender and no guarding Auscultation: normal bowel sounds : General: Yes no CVA tenderness Back/Spine/Pelvis: Back: no CVA tenderness Skin: General skin exam: no rashes or lesions noted Neuro: General: oriented to person and oriented to place Cranial nerves: Yes CN's II-XII intact bilaterally and Yes Equal, round and reactive pupils present Cognition (Neuro): normal cognition Motor exam (neuro): 5/5 motor strength present throughout Extrem: General: Yes normal to inspection Psych: Appearance: grossly normal Speech and movement: Normal speech and movement present Affect: normal affect Attitude: cooperative Medications Administered Discontinued Medications Generic Name Dose Route Start Last Admin Trade Name Freq PRN Reason Stop Dose Admin Acetaminophen 975 mg 07/30/22 00:38 07/30/22 01:09 Acetaminophen 325 Mg Tablet PO 07/30/22 00:39 975 mg ONCE STA Administration Ketorolac Tromethamine 15 mg 07/30/22 00:32 07/30/22 01:11 Ketorolac Tromethamine 15 Mg/Ml Vial IVPUSH 07/30/22 00:33 15 mg ONCE STA Administration Medical Decision Making Medical Decision Making [facility] Narrative: 22-year-old female who presents emergency department for evaluation left sided anterior and posterior chest pain which she woke up with 5 days prior, no reported injury. Pain is worse with breathing with movement but she has had no shortness of breath or dyspnea on exertion. Exam did reveal tenderness palpation of her sternum, left costochondral joints and posterior thoracic paraspinal muscles. Patient did have blood work 4 days ago which was normal and a normal EKG. Patient does take Depo-Provera for control. I did order laboratory evaluation to include CBC, CMP, quantitative beta-hCG, PT/INR, PTT and D-dimer. Patient was ordered to get Toradol 15 mg IV and Tylenol 975 mg orally. 0201: My interpretation patient's laboratory evaluation as follows: CBC was normal. CMP was normal. D-dimer was below detectable limits. Urinalysis negative. Quantitative beta hCG was below detectable limits. Patient's EKG from 07/26/2022 was normal therefore I do not think that she needs a repeat EKG today. Patient did get improvement with IV Toradol and oral Tylenol, she states that her pain is now 3/10. Patient's presentation is consistent with costochondritis and I did discuss this with her. She was advised to stop taking ibuprofen and was prescribed Toradol 10 mg every 6 hours as needed for pain. She also prescribe Flexeril 10 mg 3 times a day as needed for muscle spasm/pain. She was given a work note. She was given printed and verbal instructions and discharged home. Differential Diagnosis Differential diagnosis includes but is not limited to costochondritis, musculoskeletal pain, pulmonary embolism, pleurisy Lab Data [facility] Lab Attestation statement: I reviewed the patient's lab results. Please see [facility] 07/30/22 00:04 07/30/22 00:04 Labs: Lab Results 07/30/22 07/30/22 07/30/22 Range/Units 00:04 00:04 00:17 WBC 9.5 (4.8-10.8) X10*3/uL RBC 4.37 (4.20-5.50) X10*6/uL Hgb 12.6 (12.0-16.0) g/dl Hct 38.6 (37.0-47.0) % MCV 88.3 (80.0-98.0) fL MCH 28.8 (27.0-33.0) pg MCHC 32.6 (31.0-35.0) g/dl RDW 12.8 (11.0-16.0) % Plt Count 187 (160-400) X10*3/uL MPV 10.7 (9.4-12.3) fL Absolute Nucleated RBC 0.000 (0.0-0.012) X10*3/uL Nucleated RBC % (auto) 0.0 (0.0-0.2) /100WBC PT (10.0-13.1) SEC INR (0.9-1.1) APTT (26.0-36.4) SEC D-Dimer High Sensitivty NG/ML Sodium 142 (135-145) mmol/L Potassium 4.2 (3.3-5.1) mmol/L Chloride 111 H (96-108) mmol/L Carbon Dioxide 23 (22-29) mmol/L Anion Gap 12 (12-20) BUN 10 (9-16) mg/dL Creatinine 0.87 (0.5-1.4) mg/dL Estim Creat Clear Calc 85.3 Estimated GFR > 60 Random Glucose 90 (60-115) mg/dL Calcium 9.1 (8.4-10.2) mg/dL Total Bilirubin 0.5 (0.0-1.0) mg/dL AST 17 (5-31) U/L ALT 23 (0-31) U/L Alkaline Phosphatase 61 (39-117) U/L Troponin I High Sens (<3.5-17.0) ng/L Total Protein 6.4 L (6.5-8.0) g/dL Albumin 4.0 (3.5-5.0) g/dL Beta HCG, Quant < 2 mIU/mL Urine Color Yellow Urine Appearance Cloudy Urine pH 8.0 (5.0-9.0) Ur Specific [place] >= 1.030 H (1.005-1.025) Urine Protein 30 (1+) H (Neg-Trace) mg/dL Urine Glucose (UA) Negative (Negative) mg/dL Urine Ketones Trace (Negative) mg/dL Urine Blood Negative (Negative) Urine Nitrite Negative (Negative) Ur Leukocyte Esterase Small (1+) H (Negative) Urine RBC 0-2 (0-2) /HPF Urine WBC 0-5 (0-5) /HPF Ur Squamous Epith Cells 0-2 (0-2) /HPF Other Crystals Present Urine Bacteria None Seen (None Seen) Hyaline Casts 0-2 (0-2) /LPF 07/30/22 07/30/22 07/30/22 Range/Units 01:01 01:06 01:06 WBC (4.8-10.8) X10*3/uL RBC (4.20-5.50) X10*6/uL Hgb (12.0-16.0) g/dl Hct (37.0-47.0) % MCV (80.0-98.0) fL MCH (27.0-33.0) pg MCHC (31.0-35.0) g/dl RDW (11.0-16.0) % Plt Count (160-400) X10*3/uL MPV (9.4-12.3) fL Absolute Nucleated RBC (0.0-0.012) X10*3/uL Nucleated RBC % (auto) (0.0-0.2) /100WBC PT 11.5 (10.0-13.1) SEC INR 1.0 (0.9-1.1) APTT 27.7 (26.0-36.4) SEC D-Dimer High Sensitivty < 150 NG/ML Sodium (135-145) mmol/L Potassium (3.3-5.1) mmol/L Chloride (96-108) mmol/L Carbon Dioxide (22-29) mmol/L Anion Gap (12-20) BUN (9-16) mg/dL Creatinine (0.5-1.4) mg/dL Estim Creat Clear Calc Estimated GFR Random Glucose (60-115) mg/dL Calcium (8.4-10.2) mg/dL Total Bilirubin (0.0-1.0) mg/dL AST (5-31) U/L ALT (0-31) U/L Alkaline Phosphatase (39-117) U/L Troponin I High Sens < 2.7 (<3.5-17.0) ng/L Total Protein (6.5-8.0) g/dL Albumin (3.5-5.0) g/dL Beta HCG, Quant mIU/mL Urine Color Urine Appearance Urine pH (5.0-9.0) Ur Specific [place] (1.005-1.025) Urine Protein (Neg-Trace) mg/dL Urine Glucose (UA) (Negative) mg/dL Urine Ketones (Negative) mg/dL Urine Blood (Negative) Urine Nitrite (Negative) Ur Leukocyte Esterase (Negative) Urine RBC (0-2) /HPF Urine WBC (0-5) /HPF Ur Squamous Epith Cells (0-2) /HPF Other Crystals Urine Bacteria (None Seen) Hyaline Casts (0-2) /LPF Independent Interpretation I performed an independent interpretation of an: EKG Interpretation: My independent interpretation of the patient's EKG done on 07/26/2022 is as follows: Normal sinus rhythm with a rate of 88, normal [place] interval, QRS durat ion QTC interval, no ST segment elevation, no ST segment depression, no PACs, no PVCs. No previous EKG for interpretation. This is a normal EKG. Discharge Plan Discharge Clinical Impression: Acute costochondritis Patient Disposition: Home, Self-Care Instructions: Costochondritis (ED) Additional Instructions: Your laboratory evaluation was unremarkable including D-dimer which was below detectable limits. Your EKG from 07/26/2022 was normal which reassuring. Your urinalysis was normal Your blood test was negative. Your symptoms examination are consistent with inflammation of the joints of your chest wall (costochondritis). Stop taking ibuprofen. Take Toradol (ketorolac) 10 mg pills, 1 pill every 6 hours as needed for pain. Take this on a regular basis over the next 3-4 days to help reduce the inflammation in your chest joints. Take Tylenol (acetaminophen) 500 mg pills, 2 pills every 4 to 6 hours as needed for pain. Take Flexeril (cyclobenzaprine) 10 mg pills, 1 pill every 6-8 hours as needed for pain or spasm. This medication will make you sleepy. Do not drive or work while taking this medication. Follow-up with your doctor in 2 days. Please return to the emergency department if your symptoms get worse or if you develop any symptoms that are concerning to you. Please see the work note Prescriptions: New cyclobenzaprine 10 mg tablet 10 mg PO TID PRN (Reason: muscle pain or spasm) Qty: 20 0RF ketorolac 10 mg tablet 10 mg PO Q6H PRN (Reason: pain) 5 Days Qty: 20 0RF No Action L norgest/e.estradiol-e.estrad 0.15 mg-30 mcg (84)/10 mcg (7) tablets,dose pack,3 month 1 tab PO DAILY Qty: 91 4RF epinephrine [EpiPen] 0.3 mg/0.3 mL auto-injector 0.3 mg IM ONCE PRN (Reason: extreme reaction) Qty: 1 0RF Rx Instructions: for 2 doses albuterol sulfate 90 mcg/actuation HFA aerosol inhaler 1 inh inhalation QID PRN (Reason: shortness of breath or wheezing) Qty: 8.5 0RF medroxyprogesterone [Depo-Provera] 150 mg/mL suspension 150 mg IM Q12W Qty: 1 5RF metronidazole 0.75 % (37.5mg/5 gram) gel 1 appful vaginal BID 5 Days Qty: 70 1RF Stand Alone Forms: Work/School Release
[2022-07-30 00:37] LABS: Bacteria Urine None Seen (None Seen); Hyaline Casts Urine 0-2 /LPF (0-2); Other Crystals Urine Present; RBC Urine 0-2 /HPF (0-2); Squamous Epithelial Cell Urine 0-2 /HPF (0-2); UACC Culture Trigger YES; WBC Urine 0-5 /HPF (0-5)
[2022-07-30 01:03] LABS: HCG Quantitative < 2 mIU/mL
[2022-07-30] MEDS: Acetaminophen 325 MG TABLET 975 MG PO (01:09)
[2022-07-30] MEDS: Ketorolac Tromethamine 15 MG/ML VIAL IVPUSH (01:11)
[2022-07-30 01:29] LABS: Partial Thromboplastin Time 27.7 SEC (26.0-36.4); Prothrombin Time 11.5 SEC (10.0-13.1)
[2022-07-30 01:29] LABS: D Dimer High Sensitivity < 150 NG/ML
[2022-07-30 01:41] LABS: Troponin-I High Sensitivity < 2.7 ng/L (<3.5-17.0)
[2022-07-30 02:15] VITALS: BP 98/60; PULSE 86; RESP 17; TEMP 36.9; O2SAT 99
== END 2022-07-30 02:11 | disposition home or self-care (01) ==
PROVIDERS: Emergency Provider Emergency Medicine Emergency Medical Services
DX: M94.0 Chondrocostal junction syndrome [Tietze] (principal); F12.90 Cannabis use, unspecified, uncomplicated; Z79.899 Other long term (current) drug therapy
CPT/HCPCS: 36415; 80053; 81001; 84484; 84702; 85027; 85379; 85610; 85730; 87086; 87147; 96374; 99284; J1885

== ENCOUNTER 2022-10-24 10:51 | Outpatient (AMB) | payer MEDICAID, SELFPAY ==
[2022-10-24 11:22] VITALS: BMI 26.4
--- NOTE | 2022-10-24 11:22 | AM.OFFVISNUR ---
Intake Vital Signs 10/24/22 11:22 Height 5 ft 1 in Weight 63.503 kg BMI 26.4 Intake Visit Reasons: Depo Allergies No Known Allergies Allergy (Verified 07/26/22 17:46) Nursing Note Capo is here for her Depo-Provera inj today. She thought she was overdue but today is the last day. [facility] [place] [place] Neg. Pt denies any sexual activity in the last few months. Pt missed her annual and was informed she needs to r/s, to continue Depo-Provera. Office Procedures Depo Questionnaire If YES to any of the following questions, please consult a provider. Date of last injection: 07/25/22 Date of last gynecology exam: 12/02/21 Menstrual pattern since last injection has been: Light test in office results: Negative Irregular bleeding?: No Breast lumps or other breast changes?: No Changes in weight or appetite?: No Depression or changes in mood?: No Abnormal hair growth or loss?: No Skin problems (rash, acne, discoloration)?: No Pain at the injection site?: No Headaches?: No Nervousness?: No Abdominal pain or cramping?: No Dizziness or nausea?: No Fatigue or weakness?: No Decrease in sexual drive?: No Chest pain or shortness of breath?: No Swelling in arms or legs?: No Form completed by?: Deloris george LPN Office Meds Depo-Provera Performing Provider: Lubna Musa CNM Administered by: Carlotta George LPN on 10/24/22 11:22 Dose Route Admin Location Lot Number Expiration Date [facility] State [employer] 150 mg IM left deltoid [id number] 01/13/25 16400-346-61 [facility] Results AMB Test Urine AMB Test Urine Negative Last Edit by Carlotta George LPN on 10/24/22 11:27 Coding Level of Care Code Established Pt Est Pt Level 1 (34815) Patient Type Established History Problem Focused Exam Problem Focused Medical Decision Making Straight Forward Diagnoses Time Spent (min) 20 Assessment & Plan Assessment & Plan Orders: Orders AMB Medroxyprogesterone Injection Patient Supplied Today Z30.42 - Encounter for surveillance of injectable contraceptive
== END 2022-10-24 11:48 | disposition home or self-care (01) ==
LOC: HO.HWS 10:51
PROVIDERS: Visit Provider Advanced Practice Midwife
DX: Z30.42 Encounter for surveillance of injectable contraceptive (principal)
CPT/HCPCS: J1050

== ENCOUNTER → 2022-10-24 10:51 | Outpatient (BNVA) | payer MEDICAID, SELFPAY | PROVIDERS: Visit Provider Advanced Practice Midwife | DX: Z30.42 Encounter for surveillance of injectable contraceptive (principal) | CPT/HCPCS: 96372; 99211 ==

== ENCOUNTER 2022-12-27 19:15 | Emergency (ER) | payer MEDICAID, SELFPAY ==
[2022-12-27 19:21] VITALS: BP 109/66; PULSE 92; RESP 18; TEMP 36.9; O2SAT 98; BMI 28.1
[2022-12-27 19:49] LABS: Appearance Urine Hazy; Color Urine Orange; Glucose Urine UA 250 mg/dL (Negative); Leukocyte Esterase Urine Large (3+) (Negative); Nitrite Urine Positive (Negative); PH 6.5 (5.0-9.0); UMIC TRIGGER UACC YES; Urine Blood Large (3+) (Negative); Urine Ketones 15 mg/dL (Negative); Urine Protein 300 (3+) mg/dL (Neg-Trace)
[2022-12-27 19:57] LABS: Bacteria Urine None Seen (None Seen); Hyaline Casts Urine 0-2 /LPF (0-2); RBC Urine >20 /HPF (0-2); UACC Culture Trigger YES; WBC Urine 0-5 /HPF (0-5)
--- NOTE | 2022-12-27 20:23 | ED.FEMALEGU ---
HPI - Female Genitourinary General Chief complaint: Urogenital-Female Stated complaint: Uti? Time Seen by Provider: 12/27/22 19:38 Source: patient Mode of arrival: ambulatory History of Present Illness HPI Narrative: 22-year-old female who presents with dysuria, frequency for 1 day and reports chills but no fevers and denies any back pain and denies any nausea vomiting. Patient states she has very low concern for possible STI. Related Data Previous Rx's Medication Instructions Recorded epinephrine 0.3 mg/0.3 mL 0.3 mg (0.3 mL) IM ONCE PRN 10/22/20 injection, auto-injector (EpiPen) extreme reaction #1 ea albuterol sulfate 90 mcg/actuation 1 inh inhalation QID PRN shortness 09/02/21 aerosol inhaler of breath or wheezing #8.5 grams L norgest/E estradiol-E estrad 1 tab PO DAILY #91 tabs 10/10/21 0.15 mg-30 mcg (84)/10 mcg(7) tabs,3mos medroxyprogesterone 150 mg/mL 150 mg IM Q12W #1 mL 12/02/21 intramuscular suspension (Depo-Provera) metronidazole 0.75 % (37.5 mg/5 1 appful vaginal BID 5 days #70 01/11/22 gram) vaginal gel grams cyclobenzaprine 10 mg tablet 10 mg PO TID PRN muscle pain or 07/30/22 spasm #20 tabs ketorolac 10 mg tablet 10 mg PO Q6H PRN pain 5 days #20 07/30/22 tabs cefdinir 300 mg capsule 300 mg PO BID 5 days #10 caps 12/27/22 phenazopyridine 200 mg tablet 200 mg PO TID PRN pain 6 doses #6 12/27/22 (Pyridium) tabs Allergies Allergy/AdvReac Type Severity Reaction Status Date / Time No Known Allergies Allergy Verified 07/26/22 17:46 Review of Systems Review of Systems: Pertinent positives and negatives as stated in HPI [facility] Past Medical History Source: nursing notes reviewed Medical History Gastritis Family History Family History Paternal Aunt Uterine cancer Social History Social History Alcohol intake: current Alcohol intake frequency: holidays/special occasions only Patient Tobacco Use Status: Never used Tobacco Substance Use Type: Marijuana Advance Directives: No Advance Directives Information Provided: Yes 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 GENERAL: Well developed, well nourished, in no acute distress. HEAD: Normocephalic/atraumatic EYES: PERRLA, EOMI LUNGS: Normal breath sounds. No adventitious sounds or accessory muscle use. SpO2<98> CARDIOVASCULAR: Regular rate and rhythm without noted murmurs ABDOMEN: Soft, non-tender, non-distended with bowel sounds, no CVA tenderness MUSCULOSKELETAL: No tenderness, deformities, or effusions noted on gross inspection. EXTREMITIES: No cyanosis, clubbing or edema. SKIN: Inspection of the skin reveals no rashes NEUROLOGIC: Alert and oriented x 4. Strength and sensation to light touch were grossly intact x 4. Medical Decision Making Medical Decision Making [facility] Narrative: 22-year-old female with history and clinical presentation most consistent with urinary tract infection and lower clinical suspicion for pyelonephritis. Patient endorses that she has low concern for STI and will follow-up on the results via the patient portal. Patient received combination analgesics, Pyridium as well as antibiotics. Differential Diagnosis Differential Diagnoses: The differential diagnosis associated with the presentation includes Please see the discussion above Admission/Observation Consideration of admission/observation: Escalation of care including admission/observation considered Please see the discussion above Lab Data [facility] Lab Attestation statement: I reviewed the patient's lab results. Please see the discussion above Labs: Lab Results 12/27/22 Range/Units 19:31 Urine Color [place] Urine Appearance Hazy Urine pH 6.5 (5.0-9.0) Ur Specific [place] 1.020 (1.005-1.025) Urine Protein 300 (3+) H (Neg-Trace) mg/dL Urine Glucose (UA) 250 H (Negative) mg/dL Urine Ketones 15 (Negative) mg/dL Urine Blood Large (3+) H (Negative) Urine Nitrite Positive H (Negative) Ur Leukocyte Esterase Large (3+) H (Negative) Urine RBC >20 H (0-2) /HPF Urine WBC 0-5 (0-5) /HPF Ur Squamous Epith Cells 3-5 (0-2) /HPF Urine Bacteria None Seen (None Seen) Hyaline Casts 0-2 (0-2) /LPF Discharge Plan Discharge Clinical Impression: Cystitis Patient Disposition: Home, Self-Care Instructions: Urinary Tract Infection in Women (ED) Additional Instructions: 1. Recommend [id number] Tylenol/ibuprofen as needed for pain control. 2. Complete the entire course of antibiotics as ordered. 3. Follow-up on your other results via the patient portal. Return to the ER for any worsening symptoms. Prescriptions: New phenazopyridine [Pyridium] 200 mg tablet 200 mg PO TID PRN (Reason: pain) Qty: 6 0RF cefdinir 300 mg capsule 300 mg PO BID 5 Days Qty: 10 0RF No Action L norgest/e.estradiol-e.estrad 0.15 mg-30 mcg (84)/10 mcg (7) tablets,dose pack,3 month 1 tab PO DAILY Qty: 91 4RF epinephrine [EpiPen] 0.3 mg/0.3 mL auto-injector 0.3 mg IM ONCE PRN (Reason: extreme reaction) Qty: 1 0RF Rx Instructions: for 2 doses albuterol sulfate 90 mcg/actuation HFA aerosol inhaler 1 inh inhalation QID PRN (Reason: shortness of breath or wheezing) Qty: 8.5 0RF cyclobenzaprine 10 mg tablet 10 mg PO TID PRN (Reason: muscle pain or spasm) Qty: 20 0RF ketorolac 10 mg tablet 10 mg PO Q6H PRN (Reason: pain) 5 Days Qty: 20 0RF medroxyprogesterone [Depo-Provera] 150 mg/mL suspension 150 mg IM Q12W Qty: 1 5RF metronidazole 0.75 % (37.5mg/5 gram) gel 1 appful vaginal BID 5 Days Qty: 70 1RF
[2022-12-27] MEDS: Acetaminophen 325 MG TABLET 975 MG PO (20:40)
[2022-12-27] MEDS: Phenazopyridine HCL 200 MG TABLET PO (20:44)
[2022-12-27] MEDS: Ibuprofen 400 MG TABLET PO (20:44)
[2022-12-27] MEDS: Amoxicillin/Potassium Clav 875 MG TABLET PO (20:45)
[2022-12-27 20:54] LABS: UPreg QC Valid YES; Urine Pregnancy NEGATIVE (NEGATIVE)
[2022-12-28 04:43] LABS: CT PCR DETECTED (Not Detect.); NG PCR NOT DETECTED (Not Detect.)
--- NOTE | 2022-12-30 18:20 | ED.FEMALEGU ---
HPI - Female Genitourinary General Chief complaint: Urogenital-Female Stated complaint: Uti? Time Seen by Provider: 12/27/22 19:38 Source: patient Mode of arrival: ambulatory Related Data Previous Rx's Medication Instructions Recorded epinephrine 0.3 mg/0.3 mL 0.3 mg (0.3 mL) IM ONCE PRN 10/22/20 injection, auto-injector (EpiPen) extreme reaction #1 ea albuterol sulfate 90 mcg/actuation 1 inh inhalation QID PRN shortness 09/02/21 aerosol inhaler of breath or wheezing #8.5 grams L norgest/E estradiol-E estrad 1 tab PO DAILY #91 tabs 10/10/21 0.15 mg-30 mcg (84)/10 mcg(7) tabs,3mos medroxyprogesterone 150 mg/mL 150 mg IM Q12W #1 mL 12/02/21 intramuscular suspension (Depo-Provera) metronidazole 0.75 % (37.5 mg/5 1 appful vaginal BID 5 days #70 01/11/22 gram) vaginal gel grams cyclobenzaprine 10 mg tablet 10 mg PO TID PRN muscle pain or 07/30/22 spasm #20 tabs ketorolac 10 mg tablet 10 mg PO Q6H PRN pain 5 days #20 07/30/22 tabs cefdinir 300 mg capsule 300 mg PO BID 5 days #10 caps 12/27/22 phenazopyridine 200 mg tablet 200 mg PO TID PRN pain 6 doses #6 12/27/22 (Pyridium) tabs doxycycline hyclate 100 mg capsule 100 mg PO BID 7 days #14 caps 12/30/22 Allergies Allergy/AdvReac Type Severity Reaction Status Date / Time No Known Allergies Allergy Verified 07/26/22 17:46 [facility] Past Medical History Medical History Gastritis Family History Family History Paternal Aunt Uterine cancer Social History Social History Alcohol intake: current Alcohol intake frequency: holidays/special occasions only Patient Tobacco Use Status: Never used Tobacco Substance Use Type: Marijuana Advance Directives: No Advance Directives Information Provided: Yes 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 Educated on safe sexual practices. Time: 18:22 Medications Administered Discontinued Medications Generic Name Dose Route Start Last Admin Trade Name Freq PRN Reason Stop Dose Admin Acetaminophen 975 mg 12/27/22 20:23 12/27/22 20:40 Acetaminophen 325 Mg Tablet PO 12/27/22 20:24 975 mg ONCE ONE Administration Amoxicillin/Clavulanate Potassium 875 mg 12/27/22 20:23 12/27/22 20:45 Amoxicillin/Potassium Clav 875 Mg Tablet PO 12/27/22 20:24 875 mg ONCE ONE Administration Ibuprofen 400 mg 12/27/22 20:23 12/27/22 20:44 Ibuprofen 400 Mg Tablet PO 12/27/22 20:24 400 mg ONCE ONE Administration Phenazopyridine HCl 200 mg 12/27/22 20:23 12/27/22 20:44 Phenazopyridine Hcl 200 Mg Tablet PO 12/27/22 20:24 200 mg ONCE ONE Administration Medical Decision Making Lab Data Labs: Lab Results 12/27/22 Range/Units 19:31 Urine Color [place] Urine Appearance Hazy Urine pH 6.5 (5.0-9.0) Ur Specific [place] 1.020 (1.005-1.025) Urine Protein 300 (3+) H (Neg-Trace) mg/dL Urine Glucose (UA) 250 H (Negative) mg/dL Urine Ketones 15 (Negative) mg/dL Urine Blood Large (3+) H (Negative) Urine Nitrite Positive H (Negative) Ur Leukocyte Esterase Large (3+) H (Negative) Urine RBC >20 H (0-2) /HPF Urine WBC 0-5 (0-5) /HPF Ur Squamous Epith Cells 3-5 (0-2) /HPF Urine Bacteria None Seen (None Seen) Hyaline Casts 0-2 (0-2) /LPF Urine Test NEGATIVE (NEGATIVE) Chlam trachomat DNA PCR DETECTED A (Not Detect.) N.gonorrhoeae DNA (PCR) NOT DETECTED (Not Detect.) Discharge Plan Discharge Clinical Impression: Cystitis Patient Disposition: Home, Self-Care Instructions: Urinary Tract Infection in Women (ED) Additional Instructions: 1. Recommend [id number] Tylenol/ibuprofen as needed for pain control. 2. Complete the entire course of antibiotics as ordered. 3. Follow-up on your other results via the patient portal. Return to the ER for any worsening symptoms. Prescriptions: New phenazopyridine [Pyridium] 200 mg tablet 200 mg PO TID PRN (Reason: pain) Qty: 6 0RF cefdinir 300 mg capsule 300 mg PO BID 5 Days Qty: 10 0RF doxycycline hyclate 100 mg capsule 100 mg PO BID 7 Days Qty: 14 0RF No Action L norgest/e.estradiol-e.estrad 0.15 mg-30 mcg (84)/10 mcg (7) tablets,dose pack,3 month 1 tab PO DAILY Qty: 91 4RF epinephrine [EpiPen] 0.3 mg/0.3 mL auto-injector 0.3 mg IM ONCE PRN (Reason: extreme reaction) Qty: 1 0RF Rx Instructions: for 2 doses albuterol sulfate 90 mcg/actuation HFA aerosol inhaler 1 inh inhalation QID PRN (Reason: shortness of breath or wheezing) Qty: 8.5 0RF cyclobenzaprine 10 mg tablet 10 mg PO TID PRN (Reason: muscle pain or spasm) Qty: 20 0RF ketorolac 10 mg tablet 10 mg PO Q6H PRN (Reason: pain) 5 Days Qty: 20 0RF medroxyprogesterone [Depo-Provera] 150 mg/mL suspension 150 mg IM Q12W Qty: 1 5RF metronidazole 0.75 % (37.5mg/5 gram) gel 1 appful vaginal BID 5 Days Qty: 70 1RF Stand Alone Forms: Work/School Release Interventions: ED Discharge Assessment Last Done: 12/27/22 21:11 Discharge Date/Time: 12/27/22 21:11
== END 2022-12-27 21:11 | disposition home or self-care (01) ==
PROVIDERS: Emergency Provider Student in an Organized Health Care Education/Training Program
DX: N30.90 Cystitis, unspecified without hematuria (principal); Z79.899 Other long term (current) drug therapy
CPT/HCPCS: 0353U; 81001; 81025; 87086; 87147; 99283

== ENCOUNTER 2023-01-16 11:30 | Outpatient (REF) | payer MEDICAID, SELFPAY ==
[2023-01-16 16:53] LABS: CT PCR DETECTED (Not Detect.); NG PCR NOT DETECTED (Not Detect.)
[2023-01-17 13:34] LABS: BV Int Neg Control Negative (Negative); BV Int Pos Control Positive (Positive)
== END 2023-01-16 11:31 | disposition home or self-care (01) ==
LOC: HO.LNP 11:30
PROVIDERS: Visit Provider Advanced Practice Midwife
DX: Z01.419 Encounter for gynecological examination (general) (routine) without abnormal findings (principal); A74.9 Chlamydial infection, unspecified; N39.0 Urinary tract infection, site not specified
CPT/HCPCS: 0353U; 87480; 87510; 87660; 99395

== ENCOUNTER 2023-01-16 11:30 | Outpatient (AMB) | payer MEDICAID, SELFPAY ==
[2023-01-16 11:32] VITALS: BP 100/64; BMI 27.7
--- NOTE | 2023-01-16 11:32 | A.OFFVIS_ITS ---
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 Required: No Information Interpreted: non-clinical & clinical Rehabilitation Counselor: Rehabilitation Counselor Present (Sarahyn) Allergies No Known Allergies Allergy (Verified 01/16/23 11:37) Medication List - Last Reconciled 01/16/23 by Lubna Musa CNM albuterol sulfate 90 mcg/actuation 1 inh inhalation QID PRN cyclobenzaprine 10 mg PO TID PRN epinephrine (EpiPen) 0.3 mg (0.3 mL) IM ONCE PRN ketorolac 10 mg PO Q6H PRN 5 days medroxyprogesterone (Depo-Provera) 150 mg IM Q12W Is last menstrual period known: No (Depo no menses) Post menopausal: No HPI 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 She is on Depo-Provera for control she for got to bring her Depo today she is today to get it reinjected it was last given exactly 12 weeks ago on October 24. She does want to stay on it. She was recently diagnosed with a UTI and chlamydia on December 27 in the emergency room she had severe UTI symptoms with urgency frequency and inability to pee and set tried to self treat with cranberry pills and eventually had to be seen in the emergency room. The urine culture showed group B strep and 3 days later they called her to let her know that she also had chlamydia. She feels much better since the treatment for the UTI and she and her partner were both were treated for the chlamydia and she has not had sex with him since and has had conversations with him. She has not resumed being intimate with him and is taking her time with that. She does want to stay on the Depo. She is not having any other issues at this time she does have a little bit of a discharge but she is much better than when she went to the emergency room. 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 Gender identity: Female Female Reproductive History Menstrual Age of Menarche: 11 Duration of menses: 6-7 days control method: progesterone injection Total pregnancies: 0 Date of last pap smear: 09/09/20 (negative) Physical Exam Const General: healthy appearing, comfortable, no acute distress, well developed and alert Nutritional Appearance: average body habitus Orientation/consciousness: patient oriented x3 Limitations: no limitations HEENT Head: Yes normocephalic Neck Neck: Yes normal visual inspection Chest Chest palpation & inspection: normal inspection of the chest Breast/axilla inspection: normal inspection of the breasts and normal inspection of the axillae Breast/axilla palpation: normal palpation of the breasts and normal palpation of the axillae Resp Effort & Inspection: normal respiratory effort GI Inspection: Yes normal to inspection, No Abdominal wall edema and No distended Palpation (GI): Soft to palpation and nontender Other: Labia minora on vulva slightly reddened but patient denies any itching or irritation at this time. Discharge appears normal cervix nulliparous with clear mucus. Uterus small midposition difficult to palpate but nontender. Good tone with Kegel. patient does have piercings. General: Yes bladder normal to palpation External Female Exam: normal external appearance and normal appearance of the urethra Speculum Exam - Vagina: normal appearance of the vagina, normal palpation and normal vaginal discharge Speculum Exam - Cervix: normal appearance of the cervix, normal palpation and nontender Bimanual exam- vagina & uterus: normal bimanual exam, normal palpation, uterine size normal, bladder normal to palpation, consistency normal, normal palpation, uterine mobility normal, uterine shape normal, No Cervical tenderness present, non-tender and no cervical motion tenderness Bimanual Exam- Adnexa, other: normal adnexae, no masses, normal and No adnexal tenderness Neuro General: patient oriented x3 Assessment & Plan Assessment & Plan (1) On Depo-Provera for contraception: Code(s): Z30.42 - Encounter for surveillance of injectable contraceptive (2) Screen for sexually transmitted diseases: Code(s): Z11.3 - Encounter for screening for infections with a predominantly sexual mode of transmission (3) Well woman exam with routine gynecological exam: Code(s): Z01.419 - Encounter for gynecological examination (general) (routine) without abnormal findings (4) Cervical cancer screening: Comment: 09/08/20 pap= neg Code(s): Z12.4 - Encounter for screening for malignant neoplasm of cervix (5) control counseling: Code(s): Z30.09 - Encounter for other general counseling and advice on contraception (6) Chlamydia infection: Comment: 12/27/2022 in ER, just finished treatment, testing done as here for annual 01/16/2023. Code(s): A74.9 - Chlamydial infection, unspecified (7) UTI (urinary tract infection): Comment: With GBS 12/27/2022, DX in ER. Just finished treatment... Much improved. Code(s): N39.0 - Urinary tract infection, site not specified Plan -----Discussed in this visit the following: healthy balanced diet, regular and consistent exercise, getting recommended health screens, doing the best she can for her particular health concerns, kegel exercises, pap smear screening and followup recommendations, mammography screening and SBE, normal changes in cycles in her life stage--- .----I reviewed available options for Control Methods and their associated side effect profiles. In particular, we discussed the method most of interest to her. Reviewed importance of making sure she gets on time if she wants to stay with this method she is not interested in anything else at this time the Depo is a working for she will go garbage pick up man her Depo at [facility] and arranged come back either later today for injection or most likely tomorrow morning. -discussed her recent chlamydia she has had some challenging difficult discussions with her partner and is intending to be is sure she can be of his contrition before allowing him back. She wants to get tested for ?everything? so testing was ordered for HIV hep B hep C and syphilis. I did let her know that it is early to do the test of cure but since she was here today we would test her for the chlamydia gonorrhea trichomoniasis Gardnerella/BV and yeast. She is not having any symptoms right now. I told her that if she was positive for the chlamydia still because of DNA fragments that are still present she could have re treatment and she would absolutely want that for her own peace of mind. Depo was reordered for another year for her. . Orders: Orders Bacterial Vaginosis Panel Today Z20.2 - Contact with and (suspected) exposure to infections with a predominantly sexual mode of transmission CT NG by PCR Today Z20.2 - Contact with and (suspected) exposure to infections with a predominantly sexual mode of transmission HIV Ab/Ag Today Z11.3 - Encounter for screening for infections with a predominantly sexual mode of transmission, Z30.42 - Encounter for surveillance of injectable contraceptive Syphilis Screen Today Z11.3 - Encounter for screening for infections with a predominantly sexual mode of transmission, Z30.42 - Encounter for surveillance of injectable contraceptive Hepatitis B Surface Antigen Today Z11.3 - Encounter for screening for infections with a predominantly sexual mode of transmission, Z30.42 - Encounter for surveillance of injectable contraceptive Hepatitis C Antibody Today Z11.3 - Encounter for screening for infections with a predominantly sexual mode of transmission, Z30.42 - Encounter for surveillance of injectable contraceptive Medications: Refilled medroxyprogesterone (Depo-Provera) 150 mg IM Q12W 1 mL 5RF Coding Level of Care Code Est Pt Prev Care 18-39y(39490) Diagnoses On Depo-Provera for contraception Z30.42 Screen for sexually transmitted diseases Z11.3 Well woman exam with routine gynecological exam Z01.419 Cervical cancer screening Z12.4 control counseling Z30.09 Chlamydia infection A74.9 UTI (urinary tract infection) N39.0
== END 2023-01-16 12:12 | disposition home or self-care (01) ==
PROVIDERS: Visit Provider Advanced Practice Midwife
DX: Z30.42 Encounter for surveillance of injectable contraceptive (principal); Z11.3 Encounter for screening for infections with a predominantly sexual mode of transmission; Z01.419 Encounter for gynecological examination (general) (routine) without abnormal findings; Z12.4 Encounter for screening for malignant neoplasm of cervix; Z30.09 Encounter for other general counseling and advice on contraception; A74.9 Chlamydial infection, unspecified; N39.0 Urinary tract infection, site not specified
CPT/HCPCS: 99395

== ENCOUNTER 2023-01-17 08:48 | Outpatient (AMB) | payer MEDICAID, SELFPAY ==
[2023-01-17 08:57] VITALS: BMI 28.0
--- NOTE | 2023-01-17 08:57 | AM.OFFVISNUR ---
Intake Vital Signs 01/17/23 08:57 Height 5 ft Weight 64.977 kg BMI 28.0 Intake Visit Reasons: DEPO Allergies No Known Allergies Allergy (Verified 01/16/23 11:37) Nursing Note Capo is here today for her depo-Provera inj. She has no complaints. Follow up in 12 weeks for next inj. Office Procedures Depo Questionnaire If YES to any of the following questions, please consult a provider. Date of last injection: 10/24/22 Date of last gynecology exam: 01/16/23 Menstrual pattern since last injection has been: Not Applicable Irregular bleeding?: No Breast lumps or other breast changes?: No Changes in weight or appetite?: No Depression or changes in mood?: No Abnormal hair growth or loss?: No Skin problems (rash, acne, discoloration)?: No Pain at the injection site?: No Headaches?: No Nervousness?: No Abdominal pain or cramping?: No Dizziness or nausea?: No Fatigue or weakness?: No Decrease in sexual drive?: No Chest pain or shortness of breath?: No Swelling in arms or legs?: No Form completed by?: Deloris Rob LPN Office Meds Depo-Provera 150 mg/mL intramuscular syringe Performing Provider: Lubna Musa CNM Performing Location: [facility] [place] [facility] Documented (not given) by: Carlotta Rob LPN on 01/17/23 08:57 Dose Route Admin Location Dispensed Lot Number Expiration Date [facility] Retail Store Manager 150 mg IM mL Coding Level of Care Code Established Pt Est Pt Level 1 (59951) Patient Type Established History Problem Focused Exam Problem Focused Medical Decision Making Straight Forward Time Spent (min) 15 Assessment & Plan Assessment & Plan Orders: Orders AMB Medroxyprogesterone Injection Patient Supplied Today Z30.42 - Encounter for surveillance of injectable contraceptive Medications: New Depo-Provera (medroxyprogesterone) 150 mg IM ONCE 1 mL 0RF NS Z30.42 - Encounter for surveillance of injectable contraceptive
== END 2023-01-17 10:53 | disposition home or self-care (01) ==
LOC: HO.HWS 08:48
PROVIDERS: Visit Provider Advanced Practice Midwife
DX: Z30.42 Encounter for surveillance of injectable contraceptive (principal)

== ENCOUNTER → 2023-01-17 08:48 | Outpatient (BNVA) | payer MEDICAID, SELFPAY | PROVIDERS: Visit Provider Advanced Practice Midwife | DX: Z30.42 Encounter for surveillance of injectable contraceptive (principal) | CPT/HCPCS: 96372; 99211; J1050 ==

== ENCOUNTER 2023-01-26 15:26 | Outpatient (REF) | payer MEDICAID, SELFPAY ==
[2023-01-29 07:51] LABS: Syphilis Screen Nonreactive (Nonreactive)
[2023-01-29 08:24] LABS: HBsAGNum1 0.34 S/CO (0.00-0.99); HIV AB/AG Nonreactive (Nonreactive); HIV Num 1 0.06 S/CO (0.00-0.99); Hepatitis B Surface Antigen Negative (Negative); ~HepC Num1 0.15 S/CO (0.00-0.79); ~Hepatitis C Antibody Nonreactive (Nonreactive)
== END 2023-01-26 15:27 | disposition home or self-care (01) ==
LOC: HO.LAB 15:26
PROVIDERS: Visit Provider Advanced Practice Midwife
DX: Z30.42 Encounter for surveillance of injectable contraceptive (principal); Z20.2 Contact with and (suspected) exposure to infections with a predominantly sexual mode of transmission
CPT/HCPCS: 36415; 86780; 86803; 87340; 87389

== ENCOUNTER 2023-03-19 21:23 | Emergency (ER) | payer OTHER, MEDICAID, SELFPAY ==
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
[2023-03-19 21:26] VITALS: BP 120/80; PULSE 80; O2SAT 98
[2023-03-19 21:39] VITALS: BMI 27.8
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
[2023-03-19] MEDS: Ibuprofen 400 MG TABLET PO (22:31)
[2023-03-19] MEDS: Acetaminophen 325 MG TABLET 975 MG PO (22:31)
[2023-03-19 23:14] VITALS: BP 113/69; PULSE 80; RESP 18; TEMP 36.8; O2SAT 97
[2023-03-19] MEDS: Lidocaine 4 % Patch ADH..PATCH 1 PATCH TRANSDERMA (23:48)
== END 2023-03-19 23:53 | disposition home or self-care (01) ==
PROVIDERS: Emergency Provider Student in an Organized Health Care Education/Training Program
DX: S89.92XA Unspecified injury of left lower leg, initial encounter (principal); S09.90XA Unspecified injury of head, initial encounter; M25.562 Pain in left knee; R51.9 Headache, unspecified; M54.2 Cervicalgia; V43.52XA Car driver injured in collision with other type car in traffic accident, initial encounter; Y93.9 Activity, unspecified; Y92.410 Unspecified street and highway as the place of occurrence of the external cause; Y99.9 Unspecified external cause status; Z79.899 Other long term (current) drug therapy
CPT/HCPCS: 70450; 72125; 73562; 99284

== ENCOUNTER 2023-04-11 11:24 | Outpatient (AMB) | payer MEDICAID, SELFPAY ==
[2023-04-11 11:42] VITALS: BMI 28.1
--- NOTE | 2023-04-11 11:42 | AM.OFFVISNUR ---
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 Medication was picked up from pharmacy today per her receipt. No c/o. Pt tolerated injection well. She will schedule her next injection to be given in 12 weeks. Pt verbalizes understanding and agrees with plan. No further questions. Office Procedures Depo Questionnaire If YES to any of the following questions, please consult a provider. Date of last injection: 01/17/23 Date of last gynecology exam: 01/16/23 Menstrual pattern since last injection has been: Not Applicable Irregular bleeding?: No Breast lumps or other breast changes?: No Changes in weight or appetite?: No Depression or changes in mood?: No Abnormal hair growth or loss?: No Skin problems (rash, acne, discoloration)?: No Pain at the injection site?: No Headaches?: No Nervousness?: No Abdominal pain or cramping?: No Dizziness or nausea?: No Fatigue or weakness?: No Decrease in sexual drive?: No Chest pain or shortness of breath?: No Swelling in arms or legs?: No Form completed by?: Soo Rojas RN Office Meds Depo-Provera 150 mg/mL intramuscular syringe Performing Provider: Lubna Musa CNM Performing Location: [facility] [place] [facility] Administered by: Soo Rojas on 04/11/23 11:45 Dose Route Admin Location Dispensed Lot Number Expiration Date [facility] [place] Continuity Editor 150 mg IM Left deltoid 1 mL [id number] 09/13/24 [id number] [facility] Coding Level of Care Code Established Pt Est Pt Level 1 (68480) Patient Type Established History Problem Focused Medical Decision Making Straight Forward Time Spent (min) 15 Assessment & Plan Assessment & Plan Plan Pt will schedule next Depo injection to be given in 12 weeks. Orders: Orders AMB Medroxyprogesterone Injection Patient Supplied Today Z30.42 - Encounter for surveillance of injectable contraceptive Patient Instructions: Pt will schedule next Depo injection to be given in 12 weeks. Pt verbalizes understanding and agrees with plan. No further questions.
== END 2023-04-11 11:42 | disposition home or self-care (01) ==
LOC: HO.HWS 11:25
PROVIDERS: Visit Provider Advanced Practice Midwife
DX: Z30.42 Encounter for surveillance of injectable contraceptive (principal)

== ENCOUNTER → 2023-04-11 11:24 | Outpatient (BNVA) | payer MEDICAID, SELFPAY | PROVIDERS: Visit Provider Advanced Practice Midwife | DX: Z30.42 Encounter for surveillance of injectable contraceptive (principal) | CPT/HCPCS: 96372; 99211; J1050 ==

== ENCOUNTER 2023-04-18 09:32 | Outpatient (REF) | payer MEDICAID, SELFPAY | END 2023-04-18 09:33 | disposition home or self-care (01) | LOC: HO.LNP 09:32 | PROVIDERS: Visit Provider Advanced Practice Midwife | DX: A74.9 Chlamydial infection, unspecified (principal); Z11.3 Encounter for screening for infections with a predominantly sexual mode of transmission | CPT/HCPCS: 0353U; 87480; 87510; 87660; 99212 ==

== ENCOUNTER 2023-04-18 09:32 | Outpatient (AMB) | payer MEDICAID, SELFPAY ==
[2023-04-18 09:33] VITALS: BP 110/64; BMI 28.2
--- NOTE | 2023-04-18 09:33 | MHC.OFFVIS ---
Intake Vital Signs 04/18/23 09:33 Height 5 ft 1 in Weight 149 lb BMI 28.2 BP 110/64 Intake Visit Reasons: KATIE Intake Note: 2 bumps on left side of labia and she states that when she squeezes it yellow stuff comes out Business Broker Required: No Information Interpreted: non-clinical & clinical Home Health Clinical Supervisor: Home Health Clinical Supervisor Present (Kenan) Allergies No Known Allergies Allergy (Verified 04/18/23 09:34) Medication List - Last Reconciled 04/18/23 by Lubna Musa CNM albuterol sulfate 90 mcg/actuation 1 inh inhalation QID PRN cyclobenzaprine 10 mg PO TID PRN doxycycline hyclate 100 mg PO BID 7 days epinephrine (EpiPen) 0.3 mg (0.3 mL) IM ONCE PRN ketorolac 10 mg PO Q6H PRN 5 days medroxyprogesterone (Depo-Provera) 150 mg IM Q12W Is last menstrual period known: No (Depo) Post menopausal: No HPI KATIE HPI Details Patient is here for test of cure for chlamydia but she just wants to talk about to areas that she thinks are from ingrown hairs on her mons pubis she typically waxes rather than shaves because of efforts to prevent issues like this. 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 The 2 that she points out appear to be healing but 1 of them is slightly is swollen underneath consistent with the healing process of chronic folliculitis. Vagina pink and moist cervix nulliparous pink clear normal clear thickened mucus at os consistent with Depo-Provera use. External Female Exam: normal external appearance and normal appearance of the urethra Speculum Exam - Vagina: normal appearance of the vagina and normal vaginal discharge Speculum Exam - Cervix: normal appearance of the cervix and Cervical os closed Results Reviewed Results Reviewed: Name: Capo Nj Age/Sex: 22/F : 2000 Unit#: [id number] Attend Dr: Lubna Musa CNM Re01/16/23 Status: DEP REF Location: [facility] Disch: SPEC : [id number] CARLOS: 01/16/23 STATUS: COMP REQ : [id number] RECD: 01/16/[address]: Lubna Musa CNM COMP: 01/16/23 ENTERED: 01/16/[address]: [facility] ORDERED: CT NG by PCR QUERIES: CT NG Source: Vaginal Test Result Flag Reference Site CT PCR DETECTED A Not Detect. Detected results may be observed after successful antibiotic treatment due to target nucleic acids from residual non-viable chlamydia. As with many diagnostic tests, results from the Xpert CT/NG assay should be interpreted in conjunction with other laboratory and clinical data available to the clinician. Xpert CT/NG performance has not been evaluated in patients less than 14 years of age. The assay should not be used for the evaluation of suspected sexual abuse or for other medico-legal indications. Additional testing is recommended in any circumstance when false positive or false negative results could lead to adverse medical, social or psychological consequences. These results must be reported by the ordering clinician or clinical facility to the [facility] as required by state law. NG PCR NOT DETECTED Not Detect. A not detected test result does not exclude the possibility of infection because test results can be affected by improper specimen collection, concurrent antibiotic therapy, or the number of organisms in the specimen which may be below the sensitivity of the test. As with many diagnostic tests, results from the Xpert CT/NG assay should be interpreted in conjunction with other laboratory and clinical data available to the clinician. Xpert CT/NG performance has not been evaluated in patients less than 14 years of age. The assay should not be used for the evaluation of suspected sexual abuse or for other medico-legal indications. Additional testing is recommended in any circumstance when false positive or false negative results could lead to adverse medical, social or psychological consequences. Name: Capo Nj Age/Sex: 22/F : 2000 Unit#: [id number] Attend Dr: Lubna Musa Re01/26/23 Status: DEP REF Location: [facility] Disch: SPEC : [id number] CARLOS: 01/26/23 STATUS: COMP REQ : [id number] RECD: 01/26/[address]: Lubna Musa COMP: 01/29/23 ENTERED: 01/26/[address]: ORDERED: Syphil Scrn Test Result Flag Reference Site Syphilis TP EIA Nonreactive Nonreactive bruno: Capo Nj Age/Sex: 22/F : 2000 Unit#: [id number] Attend Dr: Lubna Musa Re01/26/23 Status: DEP REF Location: [facility] Disch: SPEC : [id number] CARLOS: 01/26/23 STATUS: COMP REQ : [id number] RECD: 01/26/[address]: Lubna Musa COMP: 01/29/230857 ENTERED: 01/26/[address]: ORDERED: Anti-HCV, HIV Ab/Ag, HBsAG Test Result Flag Reference Site Anti-HCV Nonreactive Nonreactive Antibodies to HCV not detected; does not exclude early acute HCV infection. HIV AB/AG Nonreactive Nonreactive HIV-1 p24 Ag and/or HIV-1/HIV-2 Ab not detected. A test result that is nonreactive does not exclude the possibility of exposure to or infection with HIV-1 and/or HIV-2. Nonreactive results in this assay for individuals with prior exposure to HIV-1 and/or HIV-2 may be due to antigen and antibody levels that are below the limit of detection of this assay. The [employer] HIV Ag/Ab Combo assay result and supplemental assay results should be interpreted in conjunction with the patient's clinical presentation, history and other laboratory results. If the results are inconsistent with clinical evidence, additional testing is suggested to confirm the result. HBsAG Negative Negative Assessment & Plan Assessment & Plan (1) Chlamydia infection: Comment: 12/27/2022 in ER, just finished treatment, testing done as here for annual 01/16/2023.(tested positive and was re-treated) test of cure 04/18/2023... Code(s): A74.9 - Chlamydial infection, unspecified (2) On Depo-Provera for contraception: Code(s): Z30.42 - Encounter for surveillance of injectable contraceptive (3) Screen for sexually transmitted diseases: Code(s): Z11.3 - Encounter for screening for infections with a predominantly sexual mode of transmission (4) UTI (urinary tract infection): Comment: With GBS 12/27/2022, DX in ER. Just finished treatment... Much improved. Code(s): N39.0 - Urinary tract infection, site not specified Plan Discussed her episode of discomfort both with a UTI and the chlamydia at the same time and how she is so much more improved and feeling well and she has been abstinent since then she did get tested for STD the blood work after the last visit and wanted to recheck those results which were in fact negative. I did offer her re testing for HIV hep B hep C and syphilis that she could do at her leisure whenever she wished. In addition we did today testing for chlamydia gonorrhea trichomoniasis Gardnerella and Jennifer her discharge appears normal and she feels she is doing well. discussed her excellent self-care and practice of safer sex. 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 discussed food choices. RTC for Depo when scheduled and p.r.n. and annual send Paps Orders: Orders Bacterial Vaginosis Panel Today Z11.3 - Encounter for screening for infections with a predominantly sexual mode of transmission CT NG by PCR Today A74.9 - Chlamydial infection, unspecified Hepatitis B Surface Antigen Today A74.9 - Chlamydial infection, unspecified, N39.0 - Urinary tract infection, site not specified, Z11.3 - Encounter for screening for infections with a predominantly sexual mode of transmission, Z30.42 - Encounter for surveillance of injectable contraceptive HIV Ab/Ag Today A74.9 - Chlamydial infection, unspecified, N39.0 - Urinary tract infection, site not specified, Z11.3 - Encounter for screening for infections with a predominantly sexual mode of transmission, Z30.42 - Encounter for surveillance of injectable contraceptive Hepatitis C Antibody Today A74.9 - Chlamydial infection, unspecified, N39.0 - Urinary tract infection, site not specified, Z11.3 - Encounter for screening for infections with a predominantly sexual mode of transmission, Z30.42 - Encounter for surveillance of injectable contraceptive Syphilis Screen Today A74.9 - Chlamydial infection, unspecified, N39.0 - Urinary tract infection, site not specified, Z11.3 - Encounter for screening for infections with a predominantly sexual mode of transmission, Z30.42 - Encounter for surveillance of injectable contraceptive Coding Level of Care Code Est Pt Level 3 (56524) Diagnoses Chlamydia infection A74.9 On Depo-Provera for contraception Z30.42 Screen for sexually transmitted diseases Z11.3 UTI (urinary tract infection) N39.0
== END 2023-04-18 10:48 | disposition home or self-care (01) ==
LOC: HO.HWSM 09:32
PROVIDERS: Visit Provider Advanced Practice Midwife
DX: A74.9 Chlamydial infection, unspecified (principal); Z30.42 Encounter for surveillance of injectable contraceptive; N39.0 Urinary tract infection, site not specified
CPT/HCPCS: 99213

== ENCOUNTER 2023-04-30 15:29 | Emergency (ER) | payer MEDICAID, SELFPAY ==
--- NOTE | ~2023-04-30 | XR_ITS ---
EXAMINATION: XR THORACOLUMBAR SPINE CLINICAL INFORMATION: Fall COMPARISON: None available. TECHNIQUE: 3 views of the thoracic spine FINDINGS: Bone alignment is normal. No fracture or dislocation. Normal disc spaces. Normal Paraspinal soft tissues. XR/XR thoracic spine 2V IMPRESSION: Unremarkable exam.
--- NOTE | ~2023-04-30 | XR_ITS ---
EXAMINATION: XR CHEST CLINICAL INFORMATION: Trauma. Pain with breathing. COMPARISON: Previous chest x-ray August 2021 TECHNIQUE: 2 views of the chest were obtained. FINDINGS: No significant abnormality is noted involving the heart, lungs, mediastinum, bony thorax or soft tissues. XR/XR chest 2V IMPRESSION: Unremarkable examination.
--- NOTE | ~2023-04-30 | XR_ITS ---
EXAMINATION: XR LUMBOSACRAL SPINE CLINICAL INFORMATION: Fall COMPARISON: None available. TECHNIQUE: Three views of the lumbosacral spine. FINDINGS: The vertebral bodies and posterior elements are normal. The disc spaces are preserved and the vertebral alignment is normal. The paraspinal soft tissues are normal. XR/XR lumbar spine 2-3V IMPRESSION: Unremarkable examination.
[2023-04-30 16:05] VITALS: BP 106/61; PULSE 98; RESP 16; TEMP 36.5; O2SAT 99; BMI 27.8
--- NOTE | 2023-04-30 16:05 | ED_ITS ---
HPI - Back Pain/Injury General Chief Complaint: Fall Stated Complaint: fell 04/29 back pain Time Seen by Provider: 04/30/23 16:31 Source: patient Mode of arrival: ambulatory Limitations: no limitations History of Present Illness HPI Narrative: Patient is a 23 year old assigned female at with no reported medical history presenting to the emergency department today with back pain after a fall. Patient states that on 04/29/2023 she fell down approximately 7 stairs on her back and is now having pain. Patient denies any head strike or loss of consciousness. Patient denies any dizziness, lightheadedness, abdominal pain, nausea, vomiting, fever, chills, blurry vision, double vision, loss of vision, chest pain, difficulty breathing, shortness of breath, night sweats, pain with urination, increased urinary frequency, increased urinary urgency, blood in her urine or stool, syncope or a near syncopal episode, bowel incontinence, bladder incontinence, bowel retention, bladder retention, or any other complaints at this time. MD elicited complaint: back pain and fall Pertinent past history: recent trauma Onset (ago): day(s) (1) Timing: constant Severity: mild Relieving factors: none Related Data Previous Rx's Medication Instructions Recorded epinephrine 0.3 mg/0.3 mL 0.3 mg (0.3 mL) IM ONCE PRN 10/22/20 injection, auto-injector (EpiPen) extreme reaction #1 ea albuterol sulfate 90 mcg/actuation 1 inh inhalation QID PRN shortness 09/02/21 aerosol inhaler of breath or wheezing #8.5 grams cyclobenzaprine 10 mg tablet 10 mg PO TID PRN muscle pain or 07/30/22 spasm #20 tabs ketorolac 10 mg tablet 10 mg PO Q6H PRN pain 5 days #20 07/30/22 tabs medroxyprogesterone 150 mg/mL 150 mg IM Q12W #1 mL 01/16/23 intramuscular suspension (Depo-Provera) doxycycline hyclate 100 mg capsule 100 mg PO BID 7 days #14 caps 01/17/23 acetaminophen 325 mg capsule 650 mg (2 x 325 mg) PO Q6H PRN 04/30/23 (Tylenol) pain #14 caps cyclobenzaprine 5 mg tablet 5 mg PO TID PRN muscle spasm 7 04/30/23 days #21 tabs Allergies Allergy/AdvReac Type Severity Reaction Status Date / Time No Known Allergies Allergy Verified 04/30/23 16:05 Review of Systems Constitutional: Constitutional: Reports no additional constitutional complaints, Denies chills, Denies fever(s) and Denies night sweats Eyes: Eyes: Reports no additional eye complaints, Denies blurry vision, Denies change in vision, Denies diplopia, Denies eye discharge, Denies loss of vision and Denies eye pain ENT: Denies dizziness Cardiovascular: Cardiovascular: Reports no additional cardiovascular complaints, Denies chest pain, Denies lightheadedness, Denies Loss of Consciousness and Denies dyspnea Respiratory: Respiratory: Reports no additional respiratory complaints and Denies dyspnea Gastrointestinal: Gastrointestinal: Reports no additional gastrointestinal complaints, Denies abdominal pain, Denies melena, Denies hematochezia, Denies change in bowel habits and Denies change in stool character Genitourinary: Genitourinary: Denies hematuria, Denies urinary frequency, Denies dysuria, Denies urinary incontinence, Denies urinary hesitancy and Denies urinary urgency Musculoskeletal: Musculoskeletal: Reports no additional musculoskeletal complaints, Reports back pain, Denies numbness and Denies tingling Neurologic: Denies dizziness, Denies loss of vision, Denies numbness and Denies tingling Psychiatric: Psychiatric: Reports no additional psychiatric complaints Endocrine: Endocrine: Reports no additional endocrine complaints Hematologic/Lymphatic: Hematologic/Lymphatic: Reports no additional hematologic/lymphatic complaints Allergic/Immunologic: Allergic/Immunologic: Reports no additional allergic/immunologic complaints PMFSH Past Medical History Attestation statement: The following information was validated with the patient. Source: old records reviewed and nursing notes reviewed Onset Date is defined in the Problem List Problems that require an onset date and time if occurred within 24 hrs of arrival to the ED Aortic Dissection and Rupture; Neurologic impairment; Cardiopulmonary Arrest; En dotracheal Intubation; Insertion or Replacement of Mechanical Circulatory Assist Device Medical History UTI (urinary tract infection) Chlamydia infection On Depo-Provera for contraception Bacterial vaginosis Screen for sexually transmitted diseases control counseling Acute bronchitis due to 2019-nCoV Contusion of right knee PID (acute pelvic inflammatory disease) Folliculitis Cervical cancer screening Counseling for control, oral contraceptives Well woman exam with routine gynecological exam Potential exposure to STD COVID-19 Gastritis Family History Family History Paternal Aunt Uterine cancer Social History Social History Alcohol intake: current Alcohol intake frequency: holidays/special occasions only Patient Tobacco Use Status: Never used Tobacco Substance Use Type: Marijuana Advance Directives: No Advance Directives Information Provided: No 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 Gender identity: Female Physical Exam Vital Signs: Vital Signs: Last Vital Signs Temp 97.7 F 04/30/23 16:05 Pulse 98 04/30/23 16:05 Resp 16 04/30/23 16:05 BP 106/61 04/30/23 16:05 Pulse Ox 99 04/30/23 16:05 O2 Del Method Room Air 04/30/23 16:05 BMI result Body Mass Index 27.8 Const: General: cooperative, no acute distress, alert and awake Nutritional Appearance: well nourished Orientation/consciousness: patient oriented x3 Limitations: no limitations HEENT: Head: Yes normal to inspection and Yes atraumatic Ears: hearing grossly normal bilaterally and external ears normal General nose exam: Normal external nose present, no nasal discharge noted and no epistaxis Face and sinus: Yes normal facial exam, No abrasion and No laceration Mouth: Normal oral and palatal mucosa present, no drooling and no muffled voice Eyes: General: appearance normal, both eyes and all related structures Periorbital: periorbital findings normal Eyelids: Yes eyelids normal Conjunctivae: conjunctivae normal Pupils: Equal, round and reactive pupils present EOM: EOMs intact bilaterally Neck: Neck: Yes normal visual inspection, Yes full ROM and Yes no lymphadenopathy Chest: Chest palpation & inspection: normal inspection of the chest Resp: Effort & Inspection: normal respiratory effort and able to speak in complete sentences GI: Inspection: Yes normal to inspection : General: Yes no CVA tenderness Back/Spine/Pelvis: Back: no CVA tenderness Cervical Spine: normal cervical lordosis and cervical ROM normal Thoracic/Lumbar Spine: thoracic and lumbar spine normal to inspection Pelvis: no pain with anterior-posterior compression Neuro: General: patient oriented x3 and moves all extremities Cranial nerves: Yes Equal, round and reactive pupils present Cognition (Neuro): normal cognition Motor exam (neuro): 5/5 motor strength present throughout Sensory Exam: Normal double simultaneous stimulation for sensation Coordination: [id number] test normal Extrem: General: Yes normal to inspection, Yes full ROM and Yes capillary refill normal Psych: Appearance: grossly normal Mental Status: mental status grossly normal Affect: normal affect Attitude: cooperative Thought process: Normal thought process present Thought content: Normal thought content present Insight: Good insight present (Psych) Course Course Course Narrative: RME:?23 yo female hx of PID, on depo-provera for contraception here for eval of back pain s/p mechanical fall yesterday. fell backwards onto a step in her front yard, landing on back. no head strike or LOC. reports sliding down 6 steps on her buttocks. able to bear weight and ambulate. +thoracic and lumbar back pain. +rib pain w/ deep breathing. last took tylenol last night. Denies saddle anesthesia, bowel/bladder incontinence or retention, numbness/tingling/weakness. +midline thoracic and lumbar spinous tenderness. ambulating w/ steady gait. lungs cta. plan for xrays Full HPI, ROS and PE to be performed by the primary ED provider. Medical Decision Making Medical Decision Making [facility] Narrative: Patient is a 23 year old assigned female at with no reported medical history presenting to the emergency department today with back pain after a fall. Patient's physical exam was unremarkable. Patient's thoracic spine, lumbar spine, and chest x-rays showed no acute process. I explained my physical exam findings as well as all test results to the patient. I answered all questions asked by the patient. I stressed the importance of the patient taking her medication as prescribed. I stressed the importance of the patient following up with her primary care provider. I stressed the importance of the patient returning to the emergency department immediately if her symptoms were to worsen or if she were to develop any dizziness, shortness of breath, difficulty breathing, chest pain, blurry vision, loss of vision, nausea, vomiting, abdominal pain, fever, chills, back pain, or any other complaints. Patient verbalized agreement and understanding with this treatment plan and discharge. Differential Diagnosis Differential Diagnoses: The differential diagnosis associated with the presentation includes Low back pain Back pain Fall Muscle spasm Muscle strain Admission/Observation Consideration of admission/observation: Escalation of care including admission/observation considered Patient would have been admitted to the hospital had her work up had any findings where hospital admission was appropriate and her clinical presentation warranted hospital admission. Independent Interpretation I performed an independent interpretation of an: Plain X-Ray Interpretation: My interpretation is in agreement with the radiologist's impression of these imaging studies. EXAMINATION: XR CHEST CLINICAL INFORMATION: Trauma. Pain with breathing. COMPARISON: Previous chest x-ray August 2021 TECHNIQUE: 2 views of the chest were obtained. FINDINGS: No significant abnormality is noted involving the heart, lungs, mediastinum, bony thorax or soft tissues. XR/XR chest 2V IMPRESSION: Unremarkable examination. Dictated By: Lary Snowden MD Signed By: Electronically signed by Lary Snowden MD 04/30/23 1739 EXAMINATION: XR LUMBOSACRAL SPINE CLINICAL INFORMATION: Fall COMPARISON: None available. TECHNIQUE: Three views of the lumbosacral spine. FINDINGS: The vertebral bodies and posterior elements are normal. The disc spaces are preserved and the vertebral alignment is normal. The paraspinal soft tissues are normal. XR/XR lumbar spine 2-3V IMPRESSION: Unremarkable examination. Dictated By: Lary Snowden MD Signed By: Electronically signed by Lary Snowden MD 04/30/23 1744 EXAMINATION: XR THORACOLUMBAR SPINE CLINICAL INFORMATION: Fall COMPARISON: None available. TECHNIQUE: 3 views of the thoracic spine FINDINGS: Bone alignment is normal. No fracture or dislocation. Normal disc spaces. Normal Paraspinal soft tissues. XR/XR thoracic spine 2V IMPRESSION: Unremarkable exam. Dictated By: Lary Snowden MD Signed By: Electronically signed by Lary Snowden MD 04/30/23 1745 Radiology Impression Discussion of test interpretation with radiology: I have reviewed the radiologist's reading. Prescription Management I considered prescription management with: Pain Medication (patient prescribed pain medication) Discharge Plan Discharge Clinical Impression: Fall Patient Disposition: Home, Self-Care Instructions: Fall Prevention (ED) Additional Instructions: Follow up with your primary care provider. Return to the emergency department immediately if your symptoms worsen or if you develop any dizziness, shortness of breath, difficulty breathing, chest pain, blurry vision, loss of vision, nausea, vomiting, abdominal pain, fever, chills, back pain, or any other complaints. Prescriptions: New cyclobenzaprine 5 mg tablet 5 mg PO TID PRN (Reason: muscle spasm) 7 Days Qty: 21 0RF acetaminophen [Tylenol] 325 mg capsule 650 mg PO Q6H PRN (Reason: pain) Qty: 14 0RF No Action doxycycline hyclate 100 mg capsule 100 mg PO BID 7 Days Qty: 14 0RF epinephrine [EpiPen] 0.3 mg/0.3 mL auto-injector 0.3 mg IM ONCE PRN (Reason: extreme reaction) Qty: 1 0RF Rx Instructions: for 2 doses albuterol sulfate 90 mcg/actuation HFA aerosol inhaler 1 inh inhalation QID PRN (Reason: shortness of breath or wheezing) Qty: 8.5 0RF cyclobenzaprine 10 mg tablet 10 mg PO TID PRN (Reason: muscle pain or spasm) Qty: 20 0RF ketorolac 10 mg tablet 10 mg PO Q6H PRN (Reason: pain) 5 Days Qty: 20 0RF medroxyprogesterone [Depo-Provera] 150 mg/mL suspension 150 mg IM Q12W Qty: 1 5RF Referrals: [facility] [Primary Care Provider] - Stand Alone Forms: Work/School Release Interventions: ED Discharge Assessment Last Done: 04/30/23 17:58 Discharge Date/Time: 04/30/23 17:58 Print Language: Tamazight
== END 2023-04-30 17:58 | disposition home or self-care (01) ==
PROVIDERS: Emergency Provider Emergency Medicine
DX: S39.92XA Unspecified injury of lower back, initial encounter (principal); R07.89 Other chest pain; M54.6 Pain in thoracic spine; X58.XXXA Exposure to other specified factors, initial encounter; Y93.9 Activity, unspecified; W10.9XXA Fall (on) (from) unspecified stairs and steps, initial encounter; Y92.89 Other specified places as the place of occurrence of the external cause
CPT/HCPCS: 71046; 72070; 72100; 99282; 99283

== ENCOUNTER 2023-07-02 11:48 | Outpatient (AMB) | payer MEDICAID, SELFPAY ==
[2023-07-02 12:13] VITALS: BMI 28.3
--- NOTE | 2023-07-02 12:13 | AM.OFFVISNUR ---
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 No c/o. Pt tolerated injection well. She will schedule her next injection in 12 weeks. Pt verbalizes understanding and agrees with plan. No further questions. Office Procedures Depo Questionnaire If YES to any of the following questions, please consult a provider. Date of last injection: 04/11/23 Date of last gynecology exam: 01/16/23 Menstrual pattern since last injection has been: Not Applicable Irregular bleeding?: No Breast lumps or other breast changes?: No Changes in weight or appetite?: No Depression or changes in mood?: No Abnormal hair growth or loss?: No Skin problems (rash, acne, discoloration)?: No Pain at the injection site?: No Headaches?: No Nervousness?: No Abdominal pain or cramping?: No Dizziness or nausea?: No Fatigue or weakness?: No Decrease in sexual drive?: No Chest pain or shortness of breath?: No Swelling in arms or legs?: No Form completed by?: Soo Rojas Office Meds Depo-Provera 150 mg/mL intramuscular syringe Performing Provider: Lubna Musa CNM Performing Location: [facility] Administered by: Soo Rojas on 07/02/23 12:15 Dose Route Admin Location Dispensed Lot Number Expiration Date [facility] 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
== END 2023-07-02 12:07 | disposition home or self-care (01) ==
LOC: HO.HWS 11:48
PROVIDERS: Visit Provider Advanced Practice Midwife
DX: Z30.42 Encounter for surveillance of injectable contraceptive (principal)

== ENCOUNTER → 2023-07-02 11:48 | Outpatient (BNVA) | payer OTHER, SELFPAY | PROVIDERS: Visit Provider Advanced Practice Midwife | DX: Z30.42 Encounter for surveillance of injectable contraceptive (principal) | CPT/HCPCS: 96372; 99211; J1050 ==

== ENCOUNTER 2023-08-11 04:35 | Emergency (ER) | payer OTHER, SELFPAY ==
[2023-08-11 04:38] VITALS: BP 131/78; PULSE 87; RESP 16; TEMP 36.7; O2SAT 99; BMI 29.2
--- NOTE | 2023-08-11 04:58 | ED.ALLEREA ---
HPI - Allergic Reaction General Chief complaint: Allergic Reaction Stated complaint: Hives Time Seen by Provider: 08/11/23 04:53 Source: patient Mode of arrival: ambulatory Limitations: no limitations History of Present Illness HPI narrative: Patient comes to the emergency room complaining of an allergic reaction. As far as patient knows, she has not allergic to anything, environmental or medications. Today, about an hour ago while she was at work, she started developing hives, very itchy rash around the face chest abdomen and back. Patient denies any oropharyngeal swelling, no difficulty breathing. Related Data Previous Rx's ?Medication ?Instructions ?Recorded epinephrine 0.3 mg/0.3 mL 0.3 mg (0.3 mL) IM ONCE PRN 10/22/20 injection, auto-injector (EpiPen) extreme reaction #1 ea albuterol sulfate 90 mcg/actuation 1 inh inhalation QID PRN shortness 09/02/21 aerosol inhaler of breath or wheezing #8.5 grams cyclobenzaprine 10 mg tablet 10 mg PO TID PRN muscle pain or 07/30/22 spasm #20 tabs ketorolac 10 mg tablet 10 mg PO Q6H PRN pain 5 days #20 07/30/22 tabs medroxyprogesterone 150 mg/mL 150 mg IM Q12W #1 mL 01/16/23 intramuscular suspension (Depo-Provera) doxycycline hyclate 100 mg capsule 100 mg PO BID 7 days #14 caps 01/17/23 acetaminophen 325 mg capsule 650 mg (2 x 325 mg) PO Q6H PRN 04/30/23 (Tylenol) pain #14 caps cyclobenzaprine 5 mg tablet 5 mg PO TID PRN muscle spasm 7 04/30/23 days #21 tabs Allergies Allergy/AdvReac Type Severity Reaction Status Date / Time No Known Allergies Allergy Verified 08/11/23 04:41 Review of Systems Review of Systems: Constitutional : No Weight loss, No Fever, No Chills, No Night Sweats, No Fatigue, No Malaise ENT/Mouth : No Hearing loss, No Ear Pain, No Nasal Congestion, No Sinus Pain, No Hoarseness, No sore throat, No Rhinorrhea, No Swallowing Difficulty Eyes: No Eye Pain, No Swelling, No Redness, No Foreign Body, No Discharge, No Vision Changes Cardiovascular : No Chest Pain, No SOB, No Dyspnea on Exertion, No Orthopnea, No Edema, No Palpitations Respiratory : No Cough, No Sputum, No Wheezing, No Smoke Exposure, No Dyspnea Gastrointestinal : No Nausea, No Vomiting, No Diarrhea, No Constipation, No abdominal Pain, No Hematochezia, No Melena Genitourinary : no irregular bleeding, No Dysuria, No Urinary Frequency, No Hematuria, No Urinary Incontinence, No Urgency, No Flank Pain, No Urinary Flow Changes, No Hesitancy Musculoskeletal : No joint pain, No Myalgias, No Joint Swelling Skin : Itchy hives Neuro : No Weakness, No Numbness, No Paresthesias, No Loss of Consciousness, No Dizziness, No Headache Psych : No Anxiety/Panic, No Depression, No SI/HI/AH/VH, No Social Issues, Heme/Lymph: No Bruising, No Bleeding,No Lymphadenopathy Endocrine : No Polyuria, No Polydipsia, No Temperature Intolerance PMF Past Medical History Medical History UTI (urinary tract infection) Chlamydia infection On Depo-Provera for contraception Bacterial vaginosis Screen for sexually transmitted diseases control counseling Acute bronchitis due to 2019-nCoV Contusion of right knee PID (acute pelvic inflammatory disease) Folliculitis Cervical cancer screening Counseling for control, oral contraceptives Well woman exam with routine gynecological exam Potential exposure to STD COVID-19 Gastritis Family History Family History Paternal Aunt Uterine cancer Social History Social History Alcohol intake: current Alcohol intake frequency: holidays/special occasions only Patient Tobacco Use Status: Never used Tobacco Substance Use Type: Marijuana Advance Directives: No Advance Directives Information Provided: Yes Do you have a plan to hurt others: No Plan 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 Oriented X3. No acute distress. Eyes: Pupils equal, round and reactive to light. ENT: Pharynx normal. Neck: Normal inspection. Neck supple. No lymph nodes noted. No crepitus CVS: Normal heart rate and rhythm. Pulses normal. Normal S1 and S2 Respiratory: No respiratory distress. Breath sounds normal. No Wheezing. No rales Abdomen: Soft and nontender. No rigidity. No distention. Skin: Hives in the face chest abdomen and back breathing towards the legs Extremities: No lower extremity edema. No Lacerations. No Rash Neuro: Oriented X 3. No motor deficit. No sensory deficit. Moving all extremities. No slurred speech. CN 2 through 12 grossly intact Psych: calm, cooperative, normal affect Course Course Course Narrative: -patient receiving IV fluids, Benadryl, famotidine and Solu-Medrol IV. -vital stable, no airway compromise at this time. Medications Administered Discontinued Medications Generic Name Dose Route Start Last Admin Trade Name Freq PRN Reason Stop Dose Admin Diphenhydramine HCl 50 mg 08/11/23 04:57 08/11/23 05:04 Diphenhydramine Hcl 50 Mg/Ml Vial IVPUSH 08/11/23 04:58 50 mg ONCE ONE Administration Famotidine 20 mg 08/11/23 04:57 08/11/23 05:04 Famotidine/Pf 20 Mg/2 Ml Vial IVPUSH 08/11/23 04:58 20 mg ONCE ONE Administration Sodium Chloride 1,000 mls @ 999 mls/hr 08/11/23 04:57 08/11/23 06:32 Ns IVCONT 08/11/23 05:57 Infused .Q1H1M ONE Infusion Methylprednisolone Sodium Succinate 125 mg 08/11/23 04:57 08/11/23 05:04 Methylprednisolone Sod Succ 125 Mg/2 Ml Vial IVPUSH 08/11/23 04:58 125 mg ONCE ONE Administration Medical Decision Making Medical Decision Making MDM Narrative: After IV treatment, the hives resolved, patient no longer itching, good air movement Differential Diagnosis Differential Diagnoses: The differential diagnosis associated with the presentation includes (Allergic reaction, contact dermatitis) Critical Care Time Critical Care Time Critical Care Time: Yes Total Critical Care Time: 35 Attestation: I have personally provided critical care time. Time includes review of lab data, radiology results, discussion with consultants, and monitoring for potential decompensation. Intervention performed as documented. Discharge Plan Discharge Clinical Impression: Allergic reaction Patient Disposition: Home, Self-Care Instructions: Allergy Testing (ED), General Allergic Reaction (ED) Additional Instructions: Please follow-up with your primary care physician tomorrow. If you have any worsening or new symptoms, please return to the emergency room or call 911 Prescriptions: No Action doxycycline hyclate 100 mg capsule 100 mg PO BID 7 Days Qty: 14 0RF epinephrine [EpiPen] 0.3 mg/0.3 mL auto-injector 0.3 mg IM ONCE PRN (Reason: extreme reaction) Qty: 1 0RF Rx Instructions: for 2 doses albuterol sulfate 90 mcg/actuation HFA aerosol inhaler 1 inh inhalation QID PRN (Reason: shortness of breath or wheezing) Qty: 8.5 0RF cyclobenzaprine 10 mg tablet 10 mg PO TID PRN (Reason: muscle pain or spasm) Qty: 20 0RF ketorolac 10 mg tablet 10 mg PO Q6H PRN (Reason: pain) 5 Days Qty: 20 0RF cyclobenzaprine 5 mg tablet 5 mg PO TID PRN (Reason: muscle spasm) 7 Days Qty: 21 0RF acetaminophen [Tylenol] 325 mg capsule 650 mg PO Q6H PRN (Reason: pain) Qty: 14 0RF medroxyprogesterone [Depo-Provera] 150 mg/mL suspension 150 mg IM Q12W Qty: 1 5RF Print Language: Belgian
[2023-08-11] MEDS: methylPREDNISolone Sod Succ 125 MG/2 ML VIAL IVPUSH (05:04)
[2023-08-11] MEDS: Famotidine/PF 20 MG/2 ML VIAL IVPUSH (05:04)
[2023-08-11] MEDS: diphenhydrAMINE HCL 50 MG/ML VIAL IVPUSH (05:04)
[2023-08-11] MEDS: 0.9 % Sodium Chloride 1,000 ML 999 ML IVCONT (05:04)
[2023-08-11 05:33] VITALS: BP 103/62; PULSE 71; RESP 18; O2SAT 100
--- NOTE | 2023-08-11 05:47 | PC.NURSE ---
pt axox4 reports rash/hives developed approx 0300 while working. pt denied any throat irritation/difficulty breathing on arrival however approx 0500 pt reported itchy throat. airway patent. iv established. pt medicated per jun. rash/redness/itchy throat improved. vss. o2 remains 99% on RA. call pereyra within reach.
[2023-08-11 07:00] VITALS: BP 120/85; PULSE 88; RESP 18; TEMP 36.9; O2SAT 98
[2023-08-11 07:43] VITALS: BP 115/72; PULSE 85; RESP 16; TEMP 36.9; O2SAT 98
[2023-08-11 07:47] VITALS: BP 115/72; PULSE 85; RESP 16; TEMP 36.9; O2SAT 98
== END 2023-08-11 07:46 | disposition home or self-care (01) ==
PROVIDERS: Emergency Provider Emergency Medicine
DX: T78.40XA Allergy, unspecified, initial encounter (principal); X58.XXXA Exposure to other specified factors, initial encounter
CPT/HCPCS: 96361; 96374; 96375; 99284; J1200; J2919

== ENCOUNTER 2023-08-12 07:56 | Emergency (ER) | payer OTHER, SELFPAY ==
--- NOTE | 2023-08-12 | ECG_ITS ---
Test Reason : CHEST PAIN Blood Pressure : / mmHG Vent. Rate : 129 BPM Atrial Rate : 129 BPM P-R Int : 118 ms QRS Dur : 084 ms QT Int : 288 ms P-R-T Axes : 078 073 042 degrees QTc Int : 421 ms Sinus tachycardia Otherwise normal ECG When compared with ECG of 26-JUL-2022 17:57, No significant change was found Referred By: Generic ED Physician Electronically Signed By:ANGELITA CHICAS MD
[2023-08-12 07:58] VITALS: BP 109/67; PULSE 136; RESP 18; TEMP 31.7; O2SAT 98; BMI 28.8
--- NOTE | 2023-08-12 08:04 | ED.GENADULT ---
HPI - General Adult General Chief complaint: General Medical Stated complaint: Rash all over, itchiness Time Seen by Provider: 08/12/23 08:03 Source: patient Mode of arrival: ambulatory Limitations: no limitations History of Present Illness HPI narrative: 23-year-old female who was just seen in the emergency department yesterday morning for treatment of an allergic reaction presents back to the ER for evaluation of recurrent itchy hives all over her body along with facial swelling that she noticed at 03:00 this morning. She reports waking up and having facial swelling and hives on her lower extremities. She had red burning skin on her face, neck, chest. She took Benadryl at that time. She denies any lip or tongue swelling. No difficulty breathing or swallowing. She woke up this morning with ongoing itchy rash all over her body. The swelling in her face did improve from the Benadryl. 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 Unknown trigger. No new soaps, lotions, creams, detergents. No history of this in the past. Found to be tachycardic 130s in triage. reports some tightness in her chest. MD complaint: itchy rash, facial swelling Onset (ago): hour(s) Location: face, neck, chest, left, right, upper extremity and lower extremity Severity: severe Quality: burning and other (itching) Pain Consistency: constant Relieving factors: medication Treatments prior to arrival: other (benadryl) Related Data Previous Rx's ?Medication ?Instructions ?Recorded epinephrine 0.3 mg/0.3 mL 0.3 mg (0.3 mL) IM ONCE PRN 10/22/20 injection, auto-injector (EpiPen) extreme reaction #1 ea albuterol sulfate 90 mcg/actuation 1 inh inhalation QID PRN shortness 09/02/21 aerosol inhaler of breath or wheezing #8.5 grams cyclobenzaprine 10 mg tablet 10 mg PO TID PRN muscle pain or 07/30/22 spasm #20 tabs ketorolac 10 mg tablet 10 mg PO Q6H PRN pain 5 days #20 07/30/22 tabs medroxyprogesterone 150 mg/mL 150 mg IM Q12W #1 mL 01/16/23 intramuscular suspension (Depo-Provera) doxycycline hyclate 100 mg capsule 100 mg PO BID 7 days #14 caps 01/17/23 acetaminophen 325 mg capsule 650 mg (2 x 325 mg) PO Q6H PRN 04/30/23 (Tylenol) pain #14 caps cyclobenzaprine 5 mg tablet 5 mg PO TID PRN muscle spasm 7 04/30/23 days #21 tabs famotidine 20 mg tablet (Pepcid AC) 20 mg PO DAILY #14 tabs 08/12/23 levocetirizine 5 mg tablet 5 mg PO DAILY #14 tabs 08/12/23 (Allergy Relief (levocetirizine)) prednisone 20 mg tablet 40 mg (2 x 20 mg) PO DAILY #6 tabs 08/12/23 Allergies Allergy/AdvReac Type Severity Reaction Status Date / Time No Known Allergies Allergy Verified 08/12/23 08:01 Review of Systems Review of Systems: Yes all other systems are reviewed and are negative PMFSH Past Medical History Medical History UTI (urinary tract infection) Chlamydia infection On Depo-Provera for contraception Bacterial vaginosis Screen for sexually transmitted diseases control counseling Acute bronchitis due to 2019-nCoV Contusion of right knee PID (acute pelvic inflammatory disease) Folliculitis Cervical cancer screening Counseling for control, oral contraceptives Well woman exam with routine gynecological exam Potential exposure to STD COVID-19 Gastritis Family History Family History Paternal Aunt Uterine cancer Social History Social History Alcohol intake: current Alcohol intake frequency: holidays/special occasions only Patient Tobacco Use Status: Never used Tobacco Substance Use Type: Marijuana Advance Directives: No Advance Directives Information Provided: No Do you have a plan to hurt others: No Plan 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 Oriented X3. No acute distress. Head: normocephalic, atraumatic. Eyes: Pupils equal, round and reactive to light. ENT: Pharynx normal. No tonsillar swelling or exudate. airway patent, no swelling of the lips or tongue Neck: Normal inspection. Neck supple. CVS: Tachycardic, regular rhythm, HR 120-130. Pulses normal. Respiratory: No respiratory distress. Breath sounds normal. Abdomen: Soft and nontender. +BS x4 Skin: Skin warm and dry. Normal skin color. Normal skin turgor. urtiicarial rash on the bilateral thighs and upper arms. erythematous and warm skin involving the chest wall, neck, scattered areas on the breasts. excoriations on the lower legs Extremities: No lower extremity edema. No joint swelling. Neuro/psych: Oriented X 3. No motor deficit. No sensory deficit. CN II-XII intact. Normal speech and cognition. Medications Administered Discontinued Medications Generic Name Dose Route Start Last Admin Trade Name Freq PRN Reason Stop Dose Admin Diphenhydramine HCl 50 mg 08/12/23 08:17 08/12/23 08:29 Diphenhydramine Hcl 50 Mg/Ml Vial IVPUSH 08/12/23 08:18 50 mg ONCE ONE Administration Famotidine 20 mg 08/12/23 08:17 08/12/23 08:29 Famotidine/Pf 20 Mg/2 Ml Vial IVPUSH 08/12/23 08:18 20 mg ONCE ONE Administration Sodium Chloride 1,000 mls @ 999 mls/hr 08/12/23 08:30 08/12/23 09:50 Ns IVCONT 08/12/23 09:30 Infused .Q1H1M SVEN Infusion Methylprednisolone Sodium Succinate 125 mg 08/12/23 08:17 08/12/23 08:29 Methylprednisolone Sod Succ 125 Mg/2 Ml Vial IVPUSH 08/12/23 08:18 125 mg ONCE ONE Administration Medical Decision Making Medical Decision Making MDM Narrative: 23-year-old female presents the ER for evaluation of a diffuse urticarial rash that is very itchy, red, burning. Seen here yesterday for the same. Symptoms recurred at 03:30 with facial swelling. Improved with Benadryl. She rides to the ER tachycardic with heart rates 130s. EKG is sinus that was ischemic changes. She has no chest pain, shortness for breath, facial swelling or oral swelling at this time. IV was established and she was given IV Benadryl, Solu-Medrol, Pepcid and IV fluids. Her heart rate normalized to the 90s. Her rash is resolved. Patient has idiopathic urticaria, unknown etiology at this time. At this time she is stable for discharge home, will continue antihistamine, prednisone for 2 days and she will follow up with her PCP tomorrow. She wants to get allergy testing. Return precautions were discussed. She is stable for discharge home Differential Diagnosis Differential Diagnoses: The differential diagnosis associated with the presentation includes General allergic reaction, idiopathic urticaria, angioedema, anaphylaxis Admission/Observation Consideration of admission/observation: Escalation of care including admission/observation considered 2nd visit for allergic reaction requiring IV medications for symptom control Independent Interpretation I performed an independent interpretation of an: EKG Interpretation: ekg w/ sinus tachycardia, hr 129, normal DE interval, normal QTc, no ST segment elevations or depressions External Record Review External record reviewed: Outpatient record Tests considered The following testing was considered but not selected: Considered basic lab workup Prescription Management I considered prescription management with: Other (steroids, benadryl) Critical Care Time Critical Care Time Critical Care Time: Yes Total Critical Care Time: 44 Attestation: I have personally provided critical care time exclusive of time spent on separately billable procedures. Time includes review prior record, multiple bedside reassessments of cardiopulmonary status nd monitoring for potential decompensation. Intervention performed as documented. Discharge Plan Discharge Clinical Impression: Allergic reaction Qualifiers: Encounter type: initial encounter Qualified Code(s): T78.40XA - Allergy, unspecified, initial encounter Patient Disposition: Home, Self-Care Instructions: General Allergic Reaction (ED), Allergy Testing (ED) Additional Instructions: take the prescribed mediations as directed If you develop new or worsening symptoms call 911 or come back to the ER for further evaluation. Prescriptions: New prednisone 20 mg tablet 40 mg PO DAILY Qty: 6 0RF levocetirizine [Allergy Relief (levocetirizin)] 5 mg tablet 5 mg PO DAILY Qty: 14 0RF famotidine [Pepcid AC] 20 mg tablet 20 mg PO DAILY Qty: 14 0RF No Action doxycycline hyclate 100 mg capsule 100 mg PO BID 7 Days Qty: 14 0RF epinephrine [EpiPen] 0.3 mg/0.3 mL auto-injector 0.3 mg IM ONCE PRN (Reason: extreme reaction) Qty: 1 0RF Rx Instructions: for 2 doses albuterol sulfate 90 mcg/actuation HFA aerosol inhaler 1 inh inhalation QID PRN (Reason: shortness of breath or wheezing) Qty: 8.5 0RF cyclobenzaprine 10 mg tablet 10 mg PO TID PRN (Reason: muscle pain or spasm) Qty: 20 0RF ketorolac 10 mg tablet 10 mg PO Q6H PRN (Reason: pain) 5 Days Qty: 20 0RF cyclobenzaprine 5 mg tablet 5 mg PO TID PRN (Reason: muscle spasm) 7 Days Qty: 21 0RF acetaminophen [Tylenol] 325 mg capsule 650 mg PO Q6H PRN (Reason: pain) Qty: 14 0RF medroxyprogesterone [Depo-Provera] 150 mg/mL suspension 150 mg IM Q12W Qty: 1 5RF Referrals: [facility] [Primary Care Provider] - Stand Alone Forms: Work/School Release Print Language: Icelandic
[2023-08-12] MEDS: Famotidine/PF 20 MG/2 ML VIAL IVPUSH (08:29)
[2023-08-12] MEDS: 0.9 % Sodium Chloride 1,000 ML 999 ML IVCONT (08:29)
[2023-08-12] MEDS: diphenhydrAMINE HCL 50 MG/ML VIAL IVPUSH (08:29)
[2023-08-12] MEDS: methylPREDNISolone Sod Succ 125 MG/2 ML VIAL IVPUSH (08:29)
[2023-08-12 08:57] VITALS: TEMP 36.8
--- NOTE | 2023-08-12 09:33 | PC.NURSE ---
HIVES MOSTLY RESOLVED, PT MORE COMFORTABLE AFTER MEDS.
[2023-08-12 09:53] VITALS: BP 94/56; PULSE 104; RESP 20; O2SAT 98
[2023-08-12 10:47] VITALS: BP 94/56; PULSE 104; RESP 20; TEMP 36.8; O2SAT 98
== END 2023-08-12 10:48 | disposition home or self-care (01) ==
PROVIDERS: Emergency Provider Student in an Organized Health Care Education/Training Program
DX: T78.40XA Allergy, unspecified, initial encounter (principal); X58.XXXA Exposure to other specified factors, initial encounter; L50.1 Idiopathic urticaria
CPT/HCPCS: 93005; 96361; 96374; 96375; 99284; J1200; J2919

== ENCOUNTER → 2023-08-12 08:12 | Outpatient (BNV) | payer OTHER, SELFPAY | PROVIDERS: Emergency Provider Student in an Organized Health Care Education/Training Program; Visit Provider Internal Medicine Cardiovascular Disease | DX: R07.9 Chest pain, unspecified (principal) | CPT/HCPCS: 93010 ==

== ENCOUNTER 2023-09-25 11:24 | Outpatient (AMB) | payer OTHER, SELFPAY ==
[2023-09-25 11:32] VITALS: BMI 29.2
--- NOTE | 2023-09-25 11:32 | AM.OFFVISNUR ---
Intake Vital Signs 09/25/23 11:32 Height 5 ft 1 in Weight 70.08 kg BMI 29.2 Intake Visit Reasons: depo Allergies No Known Allergies Allergy (Verified 08/12/23 08:01) Nursing Note Capo is here today for her scheduled Depo-provera inj. She has no complaints or concerns. pt tolerated well, next AG id=s in February 06. Follow up 12 weeks. Office Procedures Depo Questionnaire If YES to any of the following questions, please consult a provider. Date of last injection: 07/02/23 Date of last gynecology exam: 01/16/23 Menstrual pattern since last injection has been: Not Applicable Irregular bleeding?: No Breast lumps or other breast changes?: No Changes in weight or appetite?: No Depression or changes in mood?: No Abnormal hair growth or loss?: No Skin problems (rash, acne, discoloration)?: No Pain at the injection site?: No Headaches?: No Nervousness?: No Abdominal pain or cramping?: No Dizziness or nausea?: No Fatigue or weakness?: No Decrease in sexual drive?: No Chest pain or shortness of breath?: No Swelling in arms or legs?: No Form completed by?: Deloris Rob LPN Office Meds Depo-Provera 150 mg/mL intramuscular syringe Performing Provider: Lubna Musa CNM [place] [facility] Administered by: Carlotta Rob LPN on 09/25/23 11:33 Dose Route Admin Location Dispensed Lot Number Expiration Date [facility] Chief Security And Safety Officer 150 mg IM left deltoid 1 mL [id number] 07/14/25 01876-308-37 [facility] Coding Level of Care Code Established Pt Est Pt Level 1 (83849) Patient Type Established History Problem Focused Exam Problem Focused Medical Decision Making Straight Forward Time Spent (min) 20 Assessment & Plan Assessment & Plan Orders: Orders AMB Medroxyprogesterone Injection Patient Supplied Today Z30.42 - Encounter for surveillance of injectable contraceptive Medications: New Depo-Provera (medroxyprogesterone) 150 mg IM ONCE 1 mL 0RF NS Z30.42 - Encounter for surveillance of injectable contraceptive
== END 2023-09-25 12:13 | disposition home or self-care (01) ==
LOC: HO.HWS 11:24
PROVIDERS: Visit Provider Advanced Practice Midwife
DX: Z30.42 Encounter for surveillance of injectable contraceptive (principal)

== ENCOUNTER → 2023-09-25 11:24 | Outpatient (BNVA) | payer OTHER, SELFPAY | PROVIDERS: Visit Provider Advanced Practice Midwife | DX: Z30.42 Encounter for surveillance of injectable contraceptive (principal) | CPT/HCPCS: 96372; 99211; J1050 ==

== ENCOUNTER 2024-01-21 13:05 | Outpatient (REF) | payer OTHER, SELFPAY ==
[2024-01-22 05:27] LABS: Bacterial Vaginosis PCR NEGATIVE (Negative); Candida Group PCR NOT DETECTED (Not Detect); Candida glab krusei PCR NOT DETECTED (Not Detect); Trichomonas vaginalis PCR NOT DETECTED (Not Detect)
[2024-01-22 07:58] LABS: CT PCR NOT DETECTED (Not Detect.); NG PCR NOT DETECTED (Not Detect.)
== END 2024-01-21 13:06 | disposition home or self-care (01) ==
LOC: HO.LAB 13:05
PROVIDERS: Visit Provider Advanced Practice Midwife
DX: N89.8 Other specified noninflammatory disorders of vagina (principal); Z20.2 Contact with and (suspected) exposure to infections with a predominantly sexual mode of transmission; Z01.419 Encounter for gynecological examination (general) (routine) without abnormal findings
CPT/HCPCS: 0352U; 36415; 87491; 87591; 87625; 88175; 99395

== ENCOUNTER 2024-01-21 13:05 | Outpatient (AMB) | payer OTHER, SELFPAY ==
[2024-01-21 13:20] VITALS: BP 100/62; BMI 31.7
--- NOTE | 2024-01-21 13:20 | MHC.OFFVIS ---
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 She went off the Depo she was due to get it put in on December 17 and she decided to take a break from it she is no longer within very the last time she had sex was wash was protected with the Depo. 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 She is interested in getting tested for STIs and blood work she knows her primary care provider has ordered some labs for her to but she did not know the needed to be fasting but she has not eaten anything since 02:00 so she may go get her fasting labs now. She is interested in Plan B which I offered to her I did discuss the taking of it and that it is to be used when necessary as a plan B but not plan a. [facility] Medical History (Updated 01/21/24 @ 14:27 by Lubna Musa CNM) Cervical cancer screening Well woman exam with routine gynecological exam UTI (urinary tract infection) Chlamydia infection On Depo-Provera for contraception Bacterial vaginosis Screen for sexually transmitted diseases control counseling Acute bronchitis due to 2019-nCoV Contusion of right knee PID (acute pelvic inflammatory disease) Folliculitis Counseling for control, oral contraceptives Potential exposure to STD COVID-19 Gastritis Family History Paternal Aunt Uterine cancer Social History Alcohol intake: current Alcohol intake frequency: holidays/special occasions only Patient Tobacco Use Status: Never used Tobacco Substance Use Type: Marijuana 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 Gender identity: Female Female Reproductive History Menstrual Age of Menarche: 11 Duration of menses: 3-5 days control method: none Total pregnancies: 0 Date of last pap smear: 09/09/20 (neg) History of abnormal pap smear: No Physical Exam Vital Signs: Last Vital Signs BP 100/62 01/21/24 13:20 BMI result Body Mass Index 31.7 Const General: healthy appearing, comfortable, no acute distress, well developed and alert Nutritional Appearance: average body habitus Orientation/consciousness: patient oriented x3 Limitations: no limitations HEENT Head: Yes normocephalic Neck Neck: Yes normal visual inspection Chest Chest palpation & inspection: normal inspection of the chest Breast/axilla inspection: normal inspection of the breasts and normal inspection of the axillae Breast/axilla palpation: normal palpation of the breasts and normal palpation of the axillae Resp Effort & Inspection: normal respiratory effort GI Inspection: Yes normal to inspection, No Abdominal wall edema and No distended Palpation (GI): Soft to palpation and nontender Other: External exam within normal limits vagina is pink and moist nulliparous cervix is pink smooth with normal appearing clear/white scant mucus. Uterus is small midposition mobile nontender. Adnexa nontender good tone with Kegel General: Yes bladder normal to palpation External Female Exam: normal external appearance and normal appearance of the urethra Speculum Exam - Vagina: normal appearance of the vagina, normal palpation and normal vaginal discharge Speculum Exam - Cervix: normal appearance of the cervix, normal palpation and nontender Bimanual exam- vagina & uterus: normal bimanual exam, normal palpation, uterine size normal, bladder normal to palpation, consistency normal, normal palpation, uterine mobility normal, uterine shape normal, No Cervical tenderness present, non-tender and no cervical motion tenderness Bimanual Exam- Adnexa, other: normal adnexae, no masses, normal and No adnexal tenderness Neuro General: patient oriented x3 Results Reviewed Results Reviewed: Name: Capo Nj Age/Sex: 20/F Attending: Lubna Musa CNM : 2000 Submitted by: Lubna Musa CNM Copies to: MR #: [id number] Status: DEP REF Collected: 09/08/20 Location: .LAB Received: 09/09/20 Interpretation Satisfactory for evaluation. No endocervical cells seen. Negative for intraepithelial lesion or malignancy. Mild inflammation. Clinical Information LMP: 05/2020 Previous PAP test: No previous PAP Material Received ThinPrep Cervical Electronically Signed By: Isabela Marroquin 09/13/20 1121 The Pap Test is a screening procedure with the inherent possibility of both false negative and false positive results. Results should be interpreted in the context of historic and current clinical findings. Reliability of the Pap Test is enhanced by performing the test on a regular repetitive basis. Patient: Dakotah Page 1 of 1 Assessment & Plan Assessment & Plan (1) Uses condoms as primary control method: Comment: Currently not with anybody but would use condoms and discussed and offered plan B if 1 breaks or slips off. Code(s): Z78.9 - Other specified health status Category: Social Hx (2) Encounter for screening examination for sexually transmitted disease: Code(s): Z11.3 - Encounter for screening for infections with a predominantly sexual mode of transmission Category: Medical (3) Well woman exam with routine gynecological exam: Code(s): Z01.419 - Encounter for gynecological examination (general) (routine) without abnormal findings Category: Medical (4) Cervical cancer screening: Comment: 09/08/20 pap= neg; Pap done 01/21/2024. Code(s): Z12.4 - Encounter for screening for malignant neoplasm of cervix Category: Medical Plan -----Discussed in this visit the following: healthy balanced diet, regular and consistent exercise, getting recommended health screens, doing the best she can for her particular health concerns, kegel exercises, pap smear screening and followup recommendations, mammography screening and SBE, normal changes in cycles in her life stage--- . Discussed the challenges of working off shifts and the constant snacking that does lead to weight gain and lack of exercise and disrupted sleep patterns. I reviewed the order still in the system or her she has active orders from primary care provider for STI screening as well as other fasting labs since she has now been over 12 hours without eating she may go the hospital now and get the labs done she also shared that her aunt had from some sort of endometrial cancer and a cousin of hers who is just 1 year older had she thinks the same kind of thing and has had everything removed. She has had chemotherapy and everything. I suggested she may want to have a conversation with her cousin and find out if there is a genetic component to this and whether not other women in the family need to be concerned case it is ovarian cancer not endometrial. Discussed safer sex in detail the challenges of using condoms lose real but they are definitely with it sent prescription with refills for Plan B to her pharmacy she is going to go pick it up so she has it available to her just in case. If she ever decides to go back on any method of control to come let us know. Also reviewed signs and symptoms of ovulation and what she might expect as her body returns to normal cycling. Medications: New levonorgestrel (Plan B One-Step) 1.5 mg PO ONCE 1 tab 4RF Coding Level of Care Code Est Pt Prev Care 18-39y(41659) Diagnoses Uses condoms as primary control method Z78.9 Encounter for screening examination for sexually transmitted disease Z11.3 Well woman exam with routine gynecological exam Z01.419 Cervical cancer screening Z12.4
== END 2024-01-21 14:50 | disposition home or self-care (01) ==
LOC: HO.HWSM 13:05
PROVIDERS: Visit Provider Advanced Practice Midwife
DX: Z01.419 Encounter for gynecological examination (general) (routine) without abnormal findings (principal)
CPT/HCPCS: 99395

== ENCOUNTER 2024-01-22 14:50 | Outpatient (REF) | payer OTHER, SELFPAY ==
[2024-01-22 15:17] LABS: MANUAL DIFF FLAG NO
[2024-01-22 17:02] LABS: Basophils Absolute Auto 0.1 X10*3/uL (0.0-0.2); Basophils Percent Auto 0.6 % (0-2); Eosinophils Absolute Auto 0.2 X10*3/uL (0.0-0.4); Hematocrit 40.2 % (37.0-47.0); Hemoglobin 12.9 g/dl (12.0-16.0); Imm Gran Abs Auto 0.04 X10*3/uL (0.00-0.03); Imm Gran Pct Auto 0.5 % (0.0-0.4); Lymphocytes Absolute Auto 2.6 X10*3/uL (1.2-4.9); Lymphocytes Percent Auto 32.4 % (20-40); Mean Corpuscular HGB Conc 32.1 g/dl (31.0-35.0); Mean Corpuscular Hemoglobin 28.1 pg (27.0-33.0); Mean Corpuscular Volume 87.6 fL (80.0-98.0); Mean Platelet Volume 11.4 fL (9.4-12.3); Monocytes Absolute Auto 0.5 X10*3/uL (0.1-1.2); Monocytes Percent Auto 6.3 % (2-11); Neutrophils Absolute Auto 4.5 x10*3/uL (2.0-8.3); Neutrophils Percent Auto 57.2 % (45-73); Platelet Count 228 X10*3/uL (160-400); Red Blood Count 4.59 X10*6/uL (4.20-5.50); Red Cell Distribution Width 12.6 % (11.0-16.0); White Blood Count 7.9 X10*3/uL (4.8-10.8)
[2024-01-22 17:07] LABS: Estimated Average Glucose 97 mg/dL; Hemoglobin A1C 103.6429 umol/L; Total Hemoglobin (HGBA1C) 3328.0306 umol/L
[2024-01-22 17:39] LABS: Alanine Aminotransferase 57 U/L (0-31); Albumin Level 3.9 g/dL (3.5-5.0); Alkaline Phosphatase 71 U/L (39-117); Anion Gap 9 (12-20); Aspartate Amino Transferase 33 U/L (5-31); Bilirubin Total 0.5 mg/dL (0.0-1.0); Blood Urea Nitrogen 12 mg/dL (9-16); Calcium 9.5 mg/dL (8.4-10.2); Carbon Dioxide 24 mmol/L (22-29); Chloride 111 mmol/L (96-108); Cholesterol 201 mg/dL (<200); Estimated Glomerular Filt Rate > 60; Glucose Random 81 mg/dL (60-115); HDL Cholesterol 56 mg/dL (>40); LDL Cholesterol Calculated 131 mg/dL (<100); Potassium 3.7 mmol/L (3.3-5.1); Sodium 140 mmol/L (135-145); Total Protein 6.8 g/dL (6.5-8.0); Triglycerides 74 mg/dL (<150)
[2024-01-22 17:55] LABS: TSH reflex Free T4 1.18 uIU/mL (0.32-4.0)
[2024-01-23 04:26] LABS: Syphilis Screen Nonreactive (Nonreactive)
[2024-01-23 04:45] LABS: HBsAGNum1 0.29 S/CO (0.00-0.99); HIV AB/AG Nonreactive (Nonreactive); HIV Num 1 0.04 S/CO (0.00-0.99); Hepatitis B Surface Antigen Negative (Negative); ~HepC Num1 0.27 S/CO (0.00-0.79); ~Hepatitis C Antibody Nonreactive (Nonreactive)
[2024-01-23 05:57] LABS: HBc Num1 0.12 S/CO (0.00-0.79); Hepatitis B Core Antibody Nonreactive (Nonreactive)
[2024-01-23 06:10] LABS: HBS Num1 40.88 mIU/mL (0-7.99); ~Hepatitis B Surface Antibody REACTIVE (Nonreactive)
[2024-01-23 11:27] LABS: CT PCR NOT DETECTED (Not Detect.); NG PCR NOT DETECTED (Not Detect.)
[2024-01-23 20:18] LABS: HCV Log PCR <1.18 NOT DETECTED Log IU/mL (NOT DETECTED); HepC Viral Load <15 NOT DETECTED IU/mL (NOT DETECTED)
[2024-01-24 15:43] LABS: RPR Rapid Plasma Reagin NON-REACTIVE (NON-REACTIVE)
== END 2024-01-22 14:51 | disposition home or self-care (01) ==
LOC: HO.LAB 14:50
PROVIDERS: PCP Registered Nurse; Referring Provider Registered Nurse; Visit Provider Advanced Practice Midwife
DX: Z00.00 Encounter for general adult medical examination without abnormal findings (principal); A74.9 Chlamydial infection, unspecified; Z30.42 Encounter for surveillance of injectable contraceptive; Z11.3 Encounter for screening for infections with a predominantly sexual mode of transmission; N39.0 Urinary tract infection, site not specified
CPT/HCPCS: 36415; 80053; 80061; 83036; 84443; 85025; 86592; 86704; 86706; 86780; 86803; 87340; 87389; 87491; 87522; 87591

== ENCOUNTER 2024-03-05 12:16 | Outpatient (REF) | payer OTHER, SELFPAY ==
[2024-03-05 13:02] LABS: INTERNATIONAL NORM RATIO 0.9 (0.9-1.1); Prothrombin Time 10.7 SEC (10.9-12.4)
[2024-03-05 13:05] LABS: Partial Thromboplastin Time 30.3 SEC (26.0-36.8)
[2024-03-05 13:53] LABS: Alanine Aminotransferase 34 U/L (0-31); Alkaline Phosphatase 70 U/L (39-117); Aspartate Amino Transferase 26 U/L (5-31); Bilirubin Direct 0.1 mg/dL (0.0-0.5); Bilirubin Total 0.5 mg/dL (0.0-1.0); Cholesterol 196 mg/dL (<200); HDL Cholesterol 51 mg/dL (>40); LDL Cholesterol Calculated 131 mg/dL (<100); Total Protein 6.5 g/dL (6.5-8.0); Triglycerides 72 mg/dL (<150)
[2024-03-05 14:04] LABS: HCG Quantitative < 2 mIU/mL
== END 2024-03-05 12:17 | disposition home or self-care (01) ==
LOC: HO.LAB 12:16
PROVIDERS: PCP Registered Nurse; Visit Provider Internal Medicine
DX: Z01.818 Encounter for other preprocedural examination (principal); Z00.00 Encounter for general adult medical examination without abnormal findings; R79.89 Other specified abnormal findings of blood chemistry
CPT/HCPCS: 36415; 80061; 80076; 84702; 85610; 85730

== ENCOUNTER 2024-04-23 11:06 | Outpatient (AMB) | payer OTHER, SELFPAY ==
--- NOTE | 2024-04-23 11:06 | A.OFFVIS_ITS ---
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 Allergies No Known Allergies Allergy (Verified 04/23/24 11:06) Medication List - Last Reconciled 04/23/24 by Lubna Musa CNM acetaminophen (Tylenol) 650 mg (2 x 325 mg) PO Q6H PRN albuterol sulfate 90 mcg/actuation 1 inh inhalation QID PRN epinephrine (EpiPen) 0.3 mg (0.3 mL) IM ONCE PRN famotidine (Pepcid AC) 20 mg PO DAILY hydroxyzine HCl 10 mg PO QID PRN levocetirizine (Allergy Relief (levocetirizine)) 5 mg PO DAILY Is last menstrual period known: Yes Last menstrual period: 04/21/24 HPI HPI TV BC Consult (pills): Details: This is a tele visit to review patient's desire to get back on control she was on continuous every three-month cycling control pills in the past and then she was on Depo for quite a long time as well she felt she was gaining weight with the Depo and she wanted to get off of it to get her body back to normal she stopped it in December she started having irregular periods in the fall and then she had a regular period beginning of March on March 22 and a regula period that is started 2 days ago. they have resumed being heavy and crampy and she is not liking them and wants to go back on the every three-month pills so she does not end up dealing with anemia. She also had liposuction March and she has been wearing the tight garments she needs to wear for 6 wee ks and wants to get checked for STDs sooner 3 months. [facility] Medical History (Updated 04/23/24 @ 11:51 by Lubna Musa CNM) control counseling Cervical cancer screening Well woman exam with routine gynecological exam UTI (urinary tract infection) Chlamydia infection On Depo-Provera for contraception Bacterial vaginosis Screen for sexually transmitted diseases Acute bronchitis due to 2019-nCoV Contusion of right knee PID (acute pelvic inflammatory disease) Folliculitis Counseling for control, oral contraceptives Potential exposure to STD COVID-19 Gastritis Family History Paternal Aunt Uterine cancer Social History Alcohol intake: current Alcohol intake frequency: holidays/special occasions only Patient Tobacco Use Status: Never used Tobacco Substance Use Type: Marijuana 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 Gender identity: Female Female Reproductive History Menstrual Age of Menarche: 11 Duration of menses: other Date of last menstrual period: 04/21/24 control method: none Total pregnancies: 0 Telehealth Telehealth Telehealth Platform: Telephone Location of provider rendering services: practice address Location of patient: address on file Patient Identification confirmed using: Name, : Yes Telehealth method: voice only Patient verbally consented to treatment: Yes Patient verbally consented to billing insurance company: Yes Patient informed of any privacy concerns related to visit: Yes Minutes spent on Phone/Video with Pt.: 15 Assessment & Plan Assessment & Plan (1) BCP ( control pills) initiation: Code(s): Z30.011 - Encounter for initial prescription of contraceptive pills Category: Medical Plan Reviewed side effects of the control pills versus Depo-Provera. Patient wants to go back on the every 3 month packet of control pills that she was on for years. 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 She recently also had liposuction and is wearing the tight garment 247 and is noticing a discharge and so she also wants to arranged come to get checked for STDs and everything. She remembers how to take pills she says she normally just carry the whole pack with her. 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 She may call for any problems. Additionally I recommend getting out of the tight garment as soon as she can least 4 nighttime wear so that she can allow some air to her vulva. Medications: Changed From L norgest/e.estradiol-e.estrad 0.15 mg-30 mcg (84)/10 mcg (7) (Seasonique) 1 tab PO DAILY 84 days 84 ea 0RF To L norgest/e.estradiol-e.estrad 0.15 mg-30 mcg (84)/10 mcg (7) 1 tab PO DAILY 84 days 84 ea 4RF Coding Level of Care Code Tele Est Pt Level 3 (95009) Diagnoses BCP ( control pills) initiation Z30.011 Comment 2cr/15 speaking w pt/6 charting=23m
== END 2024-04-23 12:09 | disposition home or self-care (01) ==
LOC: HO.HWSM 11:06
PROVIDERS: PCP Registered Nurse; Visit Provider Advanced Practice Midwife
DX: Z30.09 Encounter for other general counseling and advice on contraception (principal); Z30.011 Encounter for initial prescription of contraceptive pills
CPT/HCPCS: 99213

== ENCOUNTER → 2024-04-23 11:06 | Outpatient (BNVA) | payer OTHER, SELFPAY | PROVIDERS: PCP Registered Nurse; Visit Provider Advanced Practice Midwife ==

== ENCOUNTER 2024-04-30 09:34 | Outpatient (AMB) | payer OTHER, SELFPAY ==
--- NOTE | 2024-04-30 09:34 | MHC.OFFVIS ---
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: No Information Interpreted: non-clinical & clinical Natural Gas Treating Unit Operator: Natural Gas Treating Unit Operator Present (Romina DE LEÓN) Accompanied by: Self / Same As Patient Allergies No Known Allergies Allergy (Verified 04/30/24 09:45) Medication List - Last Reconciled 04/30/24 by Lubna Musa CNM epinephrine (EpiPen) 0.3 mg (0.3 mL) IM ONCE PRN hydroxyzine HCl 10 mg PO QID PRN L norgest/e.estradiol-e.estrad 0.15 mg-30 mcg (84)/10 mcg (7) 1 tab PO DAILY 84 days levocetirizine (Allergy Relief (levocetirizine)) 5 mg PO DAILY Is last menstrual period known: Yes Last menstrual period: 04/21/24 HPI HPI STD screening: Details: Patient is here for an STD check. She also had started control pills last per a telephone visit that she and I had. She started them and is having no issues with them whatsoever we did review the taking of the pills during this visit. She also had liposuction done in March in [place] on several sites of her body and she was on antibiotics which gave her diarrhea and subsequently she also started with yeast symptoms and vaginal itching. She has had to wear a faja 06/11 to aid in the healing from the liposuction and she believes this has contributed to her symptoms. [facility] Medical History (Updated 04/30/24 @ 10:18 by Lubna Musa CNM) Counseling for control, oral contraceptives control counseling Cervical cancer screening Well woman exam with routine gynecological exam UTI (urinary tract infection) Chlamydia infection On Depo-Provera for contraception Bacterial vaginosis Screen for sexually transmitted diseases Acute bronchitis due to 2019-nCoV Contusion of right knee PID (acute pelvic inflammatory disease) Folliculitis Potential exposure to STD COVID-19 Gastritis Family History Paternal Aunt Uterine cancer Social History Alcohol intake: current Alcohol intake frequency: holidays/special occasions only Patient Tobacco Use Status: Never used Tobacco Substance Use Type: Marijuana 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 Gender identity: Female Female Reproductive History Menstrual Age of Menarche: 11 Date of last menstrual period: 04/21/24 Physical Exam Vital Signs: Last Vital Signs BP 88/62 L 04/30/24 09:37 BMI result Body Mass Index 29.5 External Female Exam: normal external appearance and normal appearance of the urethra Speculum Exam - Vagina: normal appearance of the vagina and normal vaginal discharge Speculum Exam - Cervix: normal appearance of the cervix and Cervical os closed Assessment & Plan Assessment & Plan (1) Encounter for screening examination for sexually transmitted disease: Code(s): Z11.3 - Encounter for screening for infections with a predominantly sexual mode of transmission Category: Medical (2) Counseling for control, oral contraceptives: Code(s): Z30.09 - Encounter for other general counseling and advice on contraception Category: Medical Plan Review of previous teaching done with patient as regards yeast she is becoming quite self knowledgeable about the interaction of fundus is in antibiotics and tight clothing and how they contribute to overgrowth of either yeast or BV. Testing ordered for STI screening to put her mind at ease. Reviewed her anatomy with her with a mirror even though everything appears quite healthy, a tiny amount of yeast hidden under the clitoral palacios can contribute to itching and not be visible to the naked eye. She thought about pills versus cream and she opted for fluconazole. I reviewed with her how she is doing with the control pills she is taking a pills same time every day and she started last she had forgotten about adding the new day of the week sticker to the pill pack and that was confusing her somewhat broke so we did review that and reviewed the reasoning behind it and she is going to go fix that next time she is with her pill pack she will get the labs done for STI screening later. We will see her in 3 months for pill check her blood pressure is low today but that is acceptable Orders: Orders CT NG by PCR Today Z20.2 - Contact with and (suspected) exposure to infections with a predominantly sexual mode of transmission Bacterial Vaginosis Panel Today Z20.2 - Contact with and (suspected) exposure to infections with a predominantly sexual mode of transmission Syphilis Screen Today Z11.3 - Encounter for screening for infections with a predominantly sexual mode of transmission Hepatitis B Surface Antigen Today Z11.3 - Encounter for screening for infections with a predominantly sexual mode of transmission Hepatitis C Antibody Today Z11.3 - Encounter for screening for infections with a predominantly sexual mode of transmission HIV Ab/Ag Today Z11.3 - Encounter for screening for infections with a predominantly sexual mode of transmission Medications: New fluconazole may repeat second dose 72 hrs after first dose if symptoms persist 150 mg PO Q3D 2 doses 2 tabs 0RF Coding Level of Care Code Est Pt Level 3 (57789) Diagnoses Encounter for screening examination for sexually transmitted disease Z11.3 Counseling for control, oral contraceptives Z30.
[2024-04-30 09:37] VITALS: BP 88/62; BMI 29.5
== END 2024-04-30 10:46 | disposition home or self-care (01) ==
LOC: HO.HWSM 09:34
PROVIDERS: PCP Registered Nurse; Visit Provider Advanced Practice Midwife
DX: Z30.09 Encounter for other general counseling and advice on contraception (principal)
CPT/HCPCS: 99213

== ENCOUNTER 2024-04-30 09:34 | Outpatient (REF) | payer OTHER, SELFPAY ==
[2024-04-30 21:30] LABS: Bacterial Vaginosis PCR NEGATIVE (Negative); Candida Group PCR DETECTED (Not Detect); Candida glab krusei PCR NOT DETECTED (Not Detect); Trichomonas vaginalis PCR NOT DETECTED (Not Detect)
[2024-04-30 21:53] LABS: CT PCR NOT DETECTED (Not Detect.); NG PCR NOT DETECTED (Not Detect.)
== END 2024-04-30 09:35 | disposition home or self-care (01) ==
LOC: HO.LNP 09:34
PROVIDERS: PCP Registered Nurse; Visit Provider Advanced Practice Midwife
DX: Z30.09 Encounter for other general counseling and advice on contraception (principal); Z11.3 Encounter for screening for infections with a predominantly sexual mode of transmission; Z20.2 Contact with and (suspected) exposure to infections with a predominantly sexual mode of transmission
CPT/HCPCS: 81515; 87491; 87591; 99212

== ENCOUNTER 2024-06-23 14:59 | Emergency (ER) | payer OTHER, SELFPAY ==
--- NOTE | ~2024-06-23 | XR_ITS ---
EXAMINATION: XR CHEST CLINICAL INFORMATION: cough COMPARISON: 04/30/2023. TECHNIQUE: 2 views of the chest were obtained. FINDINGS: The cardiac, hilar, and mediastinal contours are normal. The lungs are clear bilaterally. There is no pneumothorax or pleural effusion. There is no focal osseous or soft tissue abnormality. XR/XR chest 2V IMPRESSION: Normal chest. Electronically signed by: Deo Evans MD 06/23/2024 04:17 PM EDT
[2024-06-23 15:08] VITALS: BP 101/64; PULSE 122; RESP 17; TEMP 37.6; O2SAT 99; BMI 28.9
--- NOTE | 2024-06-23 15:19 | ED_ITS ---
HPI - URI/Sore Throat General Chief Complaint: Upper Respiratory Symptoms Stated Complaint: chest pain cough ear pain Time Seen by Provider: 06/23/24 16:59 Related Data Home Medications ?Medication ?Instructions ?Recorded ?Confirmed hydroxyzine HCl 10 mg tablet 10 mg PO QID PRN 01/21/24 04/30/24 Previous Rx's ?Medication ?Instructions ?Recorded epinephrine 0.3 mg/0.3 mL 0.3 mg (0.3 mL) IM ONCE PRN 10/22/20 injection, auto-injector (EpiPen) extreme reaction #1 ea levocetirizine 5 mg tablet 5 mg PO DAILY #14 tabs 08/12/23 (Allergy Relief (levocetirizine)) L norgest/E estradiol-E estrad 1 tab PO DAILY 84 days #84 ea 04/23/24 0.15 mg-30 mcg (84)/10 mcg(7) tabs,3mos fluconazole 150 mg tablet 150 mg PO Q3D 2 doses #2 tabs 04/30/24 Allergies Allergy/AdvReac Type Severity Reaction Status Date / Time No Known Allergies Allergy Verified 06/23/24 15:10 [facility] Past Medical History Medical History (Updated 06/23/24 @ 19:26 by Joseph Jose MD) Counseling for control, oral contraceptives control counseling Cervical cancer screening Well woman exam with routine gynecological exam UTI (urinary tract infection) Chlamydia infection On Depo-Provera for contraception Bacterial vaginosis Screen for sexually transmitted diseases Acute bronchitis due to 2019-nCoV Contusion of right knee PID (acute pelvic inflammatory disease) Folliculitis Potential exposure to STD COVID-19 Gastritis Family History Family History Paternal Aunt Uterine cancer Social History Social History Alcohol intake: current Alcohol intake frequency: holidays/special occasions only Patient Tobacco Use Status: Never used Tobacco Substance Use Type: Marijuana Advance Directives: No Advance Directives Information Provided: No Do you have a plan to hurt others: No Plan 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 Full HPI, ROS, assessment and treatment plan per primary provider in the Main ED. 24 yo female here for eval of cough, nasal congestion, myalgias and headache x3 days. no known sick contacts. Plan: viral swabs, cxr Reevaluation(s) Reevaluation #1: Positive for influenza A. Attempted to call patient from waiting room to discuss results. I was informed by registration staff that patient had viewed her test results online and decided to leave the ED without completing treatment. Patient left the emergency department before myself or any of the other clinicians could review or explain physical exam findings, test results, need or lack there of for additional testing, treatment options, or a treatment plan. Medical Decision Making Medical Decision Making MDM Narrative: This patient had left the emergency room without completing treatment. The patient had presented with complaints of 3 days of coughing congestion, body aches and headache. At triage a chest x-ray and a viral panel has been sent. Her chest x-ray was negative. Her viral panel was positive for influenza A. The patient had left the emergency room before this result was available and she had left without completing her evaluation. I was able to call the patient later at home and tell her the results of her viral swab and her chest x-ray. She seemed relieved in. She was advised to use conservative measures for management of influenza. Lab Data Labs: Lab Results 06/23/24 Range/Units 15:22 Influenza Type A (PCR) POSITIVE A (Negative) Influenza Type B (PCR) NEGATIVE (Negative) RSV RNA Qual (PCR) NEGATIVE (Negative) SARS-CoV-2 RNA (RT-PCR) NEGATIVE (Negative) Discharge Plan Discharge Clinical Impression: Influenza Patient Disposition: Left W/O Completing Treatment Prescriptions: No Action epinephrine [EpiPen] 0.3 mg/0.3 mL auto-injector 0.3 mg IM ONCE PRN (Reason: extreme reaction) Qty: 1 0RF Rx Instructions: for 2 doses levocetirizine [Allergy Relief (levocetirizin)] 5 mg tablet 5 mg PO DAILY Qty: 14 0RF L norgest/e.estradiol-e.estrad 0.15 mg-30 mcg (84)/10 mcg (7) tablets,dose pack,3 month 1 tab PO DAILY 84 Days Qty: 84 4RF fluconazole 150 mg tablet 150 mg PO Q3D 0 Days Qty: 2 0RF Rx Instructions: may repeat second dose 72 hrs after first dose if symptoms persist hydroxyzine HCl 10 mg tablet 10 mg PO QID PRN Discharge Date/Time: 06/23/24 18:48
[2024-06-23 16:06] LABS: Influenza A PCR POSITIVE (Negative); Influenza B PCR NEGATIVE (Negative); Resp Syncy Virus RNA Qual PCR NEGATIVE (Negative); SARS COV2 PCR INHOUSE NEGATIVE (Negative)
--- OUTSIDE RECORDS SUMMARY | 2024-06-23 18:21 | XMS_ITS | Clinical Summary ---
Author Organization [employer] Address [address] [place] [address] 7 [place] [address] Care Team Providers Care Production Support Specialist Name Role Phone Jenifer Borden HUGH Primary Care Provider [phone] Allergies No known active allergies Medications medroxyPROGEST ERone (Depo-Provera) 150 MG/ML injection INJECT 1 ML INTRAMUSCULARLY EVERY 12 WEEKS 01/17/20 23 Active EPINEPHrine (Epipen) 0.3 MG/0.3ML injection syringe Inject 0.3 mL (0.3 mg) as directed Once daily as needed for anaphylaxis. use as directed for allergic reaction and then call 911 2 each 3 09/28/19 24 Active diphenhydrAMIN E (BENADryl) 25 MG tablet Take 1-2 tablets (25-50 mg) by mouth every 6 (six) hours if needed for allergies or itching. 30 tablet 3 09/28/19 24 025 Active hydrOXYzine HCl (Atarax) 10 MG tabletIndicati ons:Primary insomnia Take 1-2 tablets (10-20 mg) by mouth every 12 (twelve) hours if needed for anxiety or itching. 30 tablet 2 12/18/19 24 025 Active Active Problems Problem Noted Date Diagnosed Date Healthcare maintenance 12/18/2023 Overview (12/18/2023): Last PE: 12/14/23 Pap: following with [facility]: following with Dr. [facility]: [facility] Primary insomnia 12/13/2023 Assessment & Plan (12/18/2023 1:28 PM EDT): - Continues with hydroxyzine 10-20mg PRN anxiety/before bed. However, she reports experiencing SE such as nightmares with medication. May consider alternatives. - Encourage lifestyle interventions such as: use bed exclusively for sleep and sex. Set bed time and try to stay consistent each night with hour going to sleep and waking in morning. Avoid screens or electronics ideally for 2 hours before bed. If having trouble falling asleep, get up and journal or read before trying to re-initiate sleep. Allergic reaction 09/30/2023 Assessment & Plan (12/14/2023 10:23 AM EDT): New onset of allergic reaction in July 2023 that required ED eval with start of throat itching/swelling. Improved with IV steroid and benadryl Unclear trigger / allergen Prescription for Epi-pen sent to pharmacy [facility] Referral to general house worker placed 09/28/23 - scheduled Apr 11, 2024 ED precautions reviewed Assessment & Plan (09/30/2023 6:45 PM EDT): New onset of allergic reaction in July 2023 that required ED eval with start of throat itching/swelling. Improved with IV steroid and benadryl Unclear trigger / allergen Prescription for Epi-pen sent to pharmacy Bendaryl PRN Referral to general house worker placed 09/28/23 ED precautions reviewed Resolved Problems Problem Noted Date Diagnosed Date Resolved Date Epigastric pain 02/26/2018 12/18/2023 Encounters Date Type Department Care Team Description 06/23/2024 Orders Only GENERIC EXTERNAL DATA DEPARTMENT Provider, Generic External Data 04/30/2024 Orders Only GENERIC EXTERNAL DATA DEPARTMENT Provider, Generic External Data 04/21/2024 Telephone [facility] [address] [place] [address] Jenifer Borden FNP Appointment Request from Last 3 Months Immunizations Name Administration Dates Next Due DTaP 07/16/2003, 1,1999,07/07,1999 HPV, Quadrivalent 05/02/2013,12/05/2012,02/13/20 12 Hep A, ped/adol, 2 dose 05/08/2014,12/05/2012 Hep B, Adolescent or Pediatric 1999,1999,1999 Hib (HbOC) 07/31/2000, 0,1999,05/10 IPV 07/16/2003, 0,1999,05/10 Influenza injectable quadriv alent preservative free 01/30/2022,01/07/2021,01/30/2020,01/11,03/31/2015,05/08/2014 Influenza, IIV3, injectable 01/18/2010, 9,01/24/2008 Influenza, Split (incl. noelle fied surface antigen) 05/02/2013,01/16/2012 MMR 07/16/2003,07/31/2000 Meningococcal MCV4P ACYW-135 07/26/2015,12/06/19 13 Moderna Covid-19 Vaccine 12+ 08/31/2020,07/29/19 21 Pneumococcal Conjugate PCV 7 02/04/2002 TD (adult), 2 Lf tetanus tox oid, preservative free, adsorbed 09/01/2018 Tdap 01/16/2012 Varicella 01/16/2012,07/31/2000 Family History Medical History Relation Name Comments Diabetes Maternal Grandmother Hypertension Maternal Grandmother Hypertension Mother Polycystic ovary syndrome Mother Relation Name Status Comments Maternal Grandfather Maternal Grandmother Mother Paternal Grandfather Paternal Grandmother Social History Tobacco Use Types Packs/Day Years Used Date Smoking Tobacco: Never Smokeless Tobacco: Never Tobacco Cessation:Counseling Given: Not Answered Alcohol Answer Date Recorded Frequency of Alcohol Consumption Not on file 12/14/2023 Average Number of Drinks Not on file 024 Frequency of Binge Drinking Not on file 11/16 Score 0 12/14/2023 Depression Answer Date Recorded Patient Health Questionnaire-9 Score 15 12/14/2023 Patient Health Questionnaire-9 Score 15 12/14/2023 Last PHQ-9: Questionnaire Data Not on file 0 12/14/2023 Housing Stability Answer Date Recorded What is your housing situation today? I have deo martinez 09/28/[address] you li ve. Do you have problems with any of the following? None of the above 09/28/2023 Food Insecurity Answer Date Recorded Within the past 12 months, y ou worried that your food would run out before you got money to buy more: Never True 09/28/2023 Within the past 12 months,th e food you bought just didn't last and you didn't have enough money to get more: Never True Transportation Answer Date Recorded In the past 12 months, has l ack of transportation kept you from medical appts, meetings, work or from getting things needed for daily living? No 09/28/2023 Utilities Answer Date Recorded In the past 12 months, has t he electric, gas, oil or water company threatened to shut off services in your home? No 09/28/2023 Depression Answer Date Recorded Patient Health Questionnaire-2 Score 3 12/14/2023 Internet Access Answer Date Recorded Internet Access Q1 Yes 12/14/2023 Internet Access Q2 Not on file 12/14/2023 Comments Unknown Sex and Gender Information Value Date Recorded Sex Assigned at Female 02/13/2022 10:17 AM EDT Legal Sex Female 10:17 AM EDT Gender Identity Female 02/13/2022 10:17 AM EDT Sexual Orientation Straight 02/13/2022 10 :17 AM EDT Last Filed Vital Signs Vital Sign Reading Time Taken Comments Blood Pressure 122/80 03/05/2024 10:37 AM EST Pulse 80 03/05/2024 10:37 AM EST Temperature 36.6 ??C (97.9 ??F) 03/05/2024 10:[address] Respiratory Rate 16 03/05/2024 10:37 AM EST Oxygen Saturation 99% 03/05/2024 10:37 AM EST Inhaled Oxygen Concentration - - Weight 76.2 kg (168 lb) 03/05/2024 10:37 AM EST Height 154.9 cm (5' 1 ) 03/05/2024 10:37 AM EST Body Mass Index 31.74 03/05/2024 10:37 AM EST Plan of Treatment Health Maintenance Due Date Last Done Comments Family Planning (PISQ) 2014 COVID-19 Vaccine ( season) 2023 08/31/2020, 07/28/2020 Influenza Vaccine (#1) 2023 , 01/07/2021, 01/30/2020, Additional history exists Depression Monitoring (PHQ-9) 06/13/2024 12/14/2023, 12/14/2023 Alcohol/Substance Use Screening 12/13/2024 12/14/2023 Depression Screening 12/13/2024 12/14/2023, 12/14/19 24 SDOH Screening 12/13/2024 12/14/2023 Tobacco Screening 12/17/2024 12/18/2023 Pap Smear 01/20/2027 01/21/2024, 09/08/2020 DTaP/Tdap/Td Vaccines (8 - Td or Tdap) 09/01/2028 09/01/2018, 01/16/2012, 07/16/2003, Additional history exists Zoster Vaccines (1 of 2) 2049 RSV Patients and Patients Aged 60 years or older (1 - 1-dose 75+ series) 2074 Hepatitis B Vaccines Completed 1999, 1999, 1999 HIB Vaccines Completed 07/31/2000, 10/1999, 1999, Additional history exists Pneumococcal Vaccine: Pediatrics (0 to 5 Years) and At-Risk Patients (6 to 49) Years) Aged Out 02/04/2002 No longer eligible based on patient's age to complete this topic IPV Vaccines Completed 07/16/2003, 10/1999, 1999, Additional history exists HPV Vaccines Completed 05/02/2013, 11/15, 02/13/2012 Hepatitis A Vaccines Completed 05/08/2014, 12/06/19 13 Meningococcal Vaccine Completed 07/26/2015, 013 HIV Screening Completed 01/22/2024, 01/14, 11/14/2021 Hepatitis C Screening Completed 01/22/2024 , 01/22/2024, 01/26/2023, Additional history exists RSV under 20 months Aged Out No longe r eligible based on patient's age to complete this topic Rotavirus Vaccines Aged Out No longer eligible based on patient's age to complete this topic Procedures Procedure Name Priority Date/Time Associated Diagnosis Comments XR CHEST 2 VIEWS Routine 06/23/2024 3:50 PM EDT SARS COV2/INFLUENZA A/B AND RSV RNA QL NAAT Routine 06/23/2024 3:22 PM EDT CHLAMYDIA/N. GONORRHOEAE RNA, TMA, UROGENITAL Routine 04/30/2024 9:30 AM EST BACTERIAL VAGINOSIS PANEL Routine 04/30/2024 9:30 AM EST HEPATITIS C ANTIBODY Routine 01/22/2024 3:10 PM EDT HIV 1/2 ANTIGEN/ANTIBODY, FOURTH GENERATION W/RFL Routine 01/22/2024 3:10 PM EDT THINPREP?? IMAGING PAP REFL HPV MRNA(IF ASCUS,ASC-H,LSIL) Routine 01/21/2024 12:00 AM EDT from Last 3 Months or Most Recently Relevant to Health Maintenance Results * XR Chest 2 Views (06/23/2024 3:50 PM EDT) Anatomical Region Laterality Modality Chest Radiographic Martina ging 06/23/2024 3:50 PM EDT Narrative 06/23/2024 4:20 PM EDT ? [facility] ?[address] ?[place] [address] ?XRay Report ? Signed ? Patient: Claire Henderson,Carelyn ?MR#: ?? [id number] ? : 2000 ?Acct:[id number] ? Age/Sex: 24 / F ?ADM Date: 03/10/25 ? Loc: HO.ED ? Attending Dr: ? Ordering Physician: Kailyn Velasquez ?? Date of Service: 06/23/24 ?? Procedure(s): XR chest 2V ?? Accession Number(s): [id number] ? cc: Jenifer Borden; Kailyn Velasquez ? EXAMINATION: ?? XR CHEST ? CLINICAL INFORMATION: ?? cough ? COMPARISON: ?? 04/30/2023. ? TECHNIQUE: ?? 2 views of the chest were obtained. ? FINDINGS: ?? The cardiac, hilar, and mediastinal contours are normal. ? The lungs are clear bilaterally. There is no pneumothorax or pleural ?? effusion. ? There is no focal osseous or soft tissue abnormality. ? XR/XR chest 2V ?? IMPRESSION: ?? Normal chest. ? Electronically signed by: ??Deo Evans MD ??06/23/2024 04:17 PM EDT RP ? Dictated By: ?Deo Evans MD ? Signed By: ?<Electronically signed by Deo Evans MD in OV> ?06/23/24 1617 ? DD/ 1550 ? TD/TT: 06/23/24 1601 ? Metallurgist Process: ? Procedure Note Fe, Image - 06/23/2024 [place] [id number] XRay Report Signed Patient: Concepción NjnMR#: [id number] : 2000Acct:[id number] Age/Sex: FADM Date: 06/23/24 Loc: HO.ED Attending Dr: Ordering Physician: Kailyn Velasquez Date of Service: 06/23/24 Procedure(s): XR chest 2V Accession Number(s): [id number] cc: Jenifer Borden CREDENTIALING SPECIALIST; Kailyn Velasquez EXAMINATION: XR CHEST CLINICAL INFORMATION: cough COMPARISON: 04/30/2023. TECHNIQUE: 2 views of the chest were obtained. FINDINGS: The cardiac, hilar, and mediastinal contours are normal. The lungs are clear bilaterally. There is no pneumothorax or pleural effusion. There is no focal osseous or soft tissue abnormality. XR/XR chest 2V IMPRESSION: Normal chest. Electronically signed by: Deo Evans MD 06/23/2024 04:17 PM EDT Dictated By: Deo Evans MD Signed By: <Electronically signed by Deo vEans MD in OV> 06/23/24 1617 DD/ 1550 TD/TT: 06/23/24 1601 Metallurgist Process: [facility] External Provider IMG XR PROCEDURES Final Result * (ABNORMAL) SARS-CoV-2 RNA, Influenza A/B, and RSV RNA, Ql NAAT (06/23/2024 3:22 PM EDT) Influenza A PCR POSITIVE(A) Negative [facility] Influenza B PCR NEGATIVE Negative [facility] Resp Syncy Virus RNA Qual PCR NEGATIVE Negative [facility] SARS COV2 PCR NEGATIVE Negative [facility] Comment:All test results mus t be correlated with clinical findings.Negative results do not preclude SARS-CoV2, influenza Avirus, influenza B virus and/or RSV infectionand should not be used as the sole basis for treatment orother patient management decisions. Negative results must becombined with clinical observations, patient history, andepidemiological information.This test has not been evaluated for monitoring treatment ofinfection.This test has been authorized by the FDA under an EmergencyUse Authorization (EUA) for use by authorized laboratories.Testing performed on the [employer] GeneXpert utilizingreal-time RT-PCR.All SARS CoV2 and positive influenza A/B results arereported to [facility]. 06/23/2024 3:22 PM EDT 06/23/2024 3:24 PM EDT Generic External Data Provider LAB MICROBIOLOGY - GENERAL ORDERABLES Final Result [facility] [address] [place] [phone] * (ABNORMAL) Bacterial Vaginosis (04/30/2024 9:30 AM EST) TRICHOMONAS VAGINALIS DETECTION BY PCR NOT DETECTED Not Detect [facility] BACTERIAL VAGINOSIS DETECTION BY PCR NEGATIVE Negative [facility] Comment:The BV organism targ ets of the Xpert Xpress MVP test can becommensal in women; Xpert Xpress MVP positive results forbacterial vaginosis should be considered in conjunction withother clinical and patient information to determine thedisease status. Organisms that are not detected by the XpertXpress MVP test have also been reported to be associatedwith BV and aerobic vaginitis.The Xpert Xpress MVP test performance has not been evaluatedin patients under the age of 14. JENNIFER GROUP DETECTION BY PCR DETECTED(A) Not Detect [facility] Jennifer glab krusei PCR NOT DETECTED Not Detect [facility] 04/30/2024 9:30 AM EST 04/30/2024 4:51 PM EST us Generic External Data Provider LAB MICROBIOLOGY - GENERAL ORDERABLES Final Result [facility] [address] [place] [phone] * Chlamydia/N. Gonorrhoeae RNA, TMA, Urogenitial (04/30/2024 9:30 AM EST) CT PCR NOT DETECTED Not Detect. [facility] Comment:A not detected test result does not exclude the possibilityof infection because test results can be affected byimproper specimen collection, concurrent antibiotic therapy,or the number of organisms in the specimen which may bebelow the sensitivity of the test. As with many diagnostictests, results from the Xpert CT/NG assay should beinterpreted in conjunction with other laboratory andclinical data available to the clinician.Xpert CT/NG performance has not been evaluated in patientsless than 14 years of age. The assay should not be used forthe evaluationof suspected sexual abuse or for other medico-legalindications. Additional testing is recommended in anycircumstance when false positive or false negative resultscould lead to adverse medical, social or psychologicalconsequences. NG PCR NOT DETECTED Not Detect. [facility] Comment:A not detected test result does not exclude the possibilityof infection because test results can be affected byimproper specimen collection, concurrent antibiotic therapy,or the number of organisms in the specimen which may bebelow the sensitivity of the test. As with many diagnostictests, results from the Xpert CT/NG assay should beinterpreted in conjunction with other laboratory andclinical data available to the clinician.Xpert CT/NG performance has not been evaluated in patientsless than 14 years of age. The assay should not be used forthe evaluationof suspected sexual abuse or for other medico-legalindications. Additional testing is recommended in anycircumstance when false positive or false negative resultscould lead to adverse medical, social or psychologicalconsequences. 04/30/2024 9:30 AM EST 04/30/2024 4:51 PM EST Narrative [facility] - 04/30/2024 9:53 PM EST Vaginal Generic External Data Provider LAB MICROBIOLOGY - GENERAL ORDERABLES Final Result Performing Organization Address [facility] Co de Phone Number [facility] [address] [place] [phone] * Hepatitis C Ab (01/22/2024 3:10 PM EDT) Hepatitis C Antibody Nonreactive Nonreactive [facility] Comment:Antibodies to HCV no t detected; does not exclude early acuteHCV infection. 01/22/2024 3:10 PM EDT 01/22/2024 3:14 PM EDT Generic External Data Provider LAB BLOOD ORDERAB LES Final Result Performing Organization Address [facility] Co de Phone Number [facility] [address] [place] [phone] * HIV-1/2 Antigen and Antibodies, Fourth Generation, with Reflexes (01/22/2024 3:10 PM EDT) HIV AB/AG Nonreactive Nonreactive [facility] Comment:HIV-1 p24 Ag and/or HIV-1/HIV-2 Ab not detected.A test result that is nonreactive does not exclude thepossibility of exposure to or infection with HIV-1 and/orHIV-2. Nonreactive results in this assay for individualswith prior exposure to HIV-1 and/or HIV-2 may be due toantigen and antibody levels that are below the limit ofdetection of this assay.The [employer] HIV Ag/Ab Combo assay result andsupplemental assay results should be interpreted inconjunction with the patient's clinical presentation,history and other laboratory results. If the results areinconsistent with clinical evidence, additional testing issuggested to confirm the result. 01/22/2024 3:10 PM EDT 01/22/2024 3:14 PM EDT us Generic External Data Provider LAB BLOOD ORDERAB LES Final Result [facility] [address] [place] [phone] * ThinPrep?? Imaging Pap Refl HPV mRNA(if ASCUS,ASC-H,LSIL,HSIL,NANCY)Refl Genotype (01/21/2024 12:00 AM EDT) HPV nRNA E6/E7 [facility] HPV 16,18/45 [facility] SOURCE: SEE NOTE [facility] Comment:None given Report Status: [facility] Clinical Information: SEE NOTE [facility] Comment:None given LMP: SEE NOTE [facility] Comment:NONE GIVEN Prev. PAP: SEE NOTE [facility] Comment:NONE GIVEN Prev. BX: SEE NOTE [facility] Comment:NONE GIVEN Statement Of Adequacy: SEE NOTE [facility] Comment:Satisfactory for papi luation.Endocervical/transformation zone component absent. General Categorization: [facility] Interpretation/Result: SEE NOTE [facility] Comment:Cytology Results: Ne gative for intraepitheliallesion or malignancy. Cytology Comment SEE NOTE [facility] Comment:This Pap test has be en evaluated with computerassisted technology. [employer]: SEE NOTE [facility] Comment:IVONE, CT(ASCP)CT scre ening location: [place] [address] Review [employer]: [facility] Pathologist [facility] PAP Infection [facility] See Note SEE NOTE [facility] Comment:EXPLANATORY NOTE:The Pap is a screening test for cervical cancer. It isnot a diagnostic test and is subject to false negativeand false positive results. It is most reliable when asatisfactory sample, regularly obtained, is submittedwith relevant clinical findings and history, and whenthe Pap result is evaluated along with historic andcurrent clinical information.THIS TEST WAS PERFORMED AT:[facility] [place] [phone] WALSH MD 01/21/2024 01/21/2024 Narrative [facility] - 01/25/2024 3:22 PM EDT SEE SCANNED RESULTS IN EMR us Generic External Data Provider LAB CYTOLOGY JENNIFER ORTEZ Final Result [facility] [address] [place] [phone] from Last 3 Months or Most Recently Relevant to Health Maintenance Insurance [facility] Care Teams Production Support Specialist Relationship Specialty Start Date End Date Jenifer Borden FNP [address] [facility] [place] [address] PCP - General Family Medicine 12/11/21
--- OUTSIDE RECORDS SUMMARY | 2024-06-23 18:21 | XMS_ITS | Encounter Summary ---
Author Organization [employer] Address [address] [facility] [address] [place] [address] Care Team Providers Care Forestry Adviser Name Role Phone Jenifer Borden Primary Care Provider Encounter Details Date Type Department Care Team ([facility] st Contact Info) Description 12/19/2023 Orders Only [facility] [address] [place], [place] [phone] Jenifer Borden FNP [address] [place] [address] Healthcare maintenance (Primary Dx) Social History Tobacco Use Types Packs/Day Years Used Date Smoking Tobacco: Never Smokeless Tobacco: Never Alcohol Answer Date Recorded Frequency of Alcohol [...] Orientation Straight 02/13/2022 10 :17 AM EDT documented as of this encounter Plan of Treatment Scheduled Orders Name Type Priority Associated Diagnoses Orde r Schedule Hepatitis B surface antigen, EIA Lab Routine Healthcare maintenance Expected: 12/19/2023 (Approximate), Expires: 12/18/2024 Hepatitis B Core Antibody, Total Lab Routine Healthcare maintenance Expected: 12/19/2023 (Approximate), Expires: 12/18/2024 Hepatitis B Surface Antibody, Qualitative Lab Routine Healthcare maintenance Expected: 12/19/2023 (Approximate), Expires: 12/18/2024 documented as of this encounter Visit Diagnoses Diagnosis Healthcare maintenance- Primary documented in this encounter Additional Health Concerns Assessment Noted Time PHQ-9 Depression Total Score: 15 024 9:50 AM EDT documented as of this encounter Care Teams Forestry Adviser Relationship Specialty Start Date End Date Jenifer Borden FNP [address] [place] [address] PCP - General Family Medicine 12/11/21 documented as of this encounter
--- OUTSIDE RECORDS SUMMARY | 2024-06-23 18:21 | XMS_ITS | Encounter Summary ---
Author Organization [email or web address] Address [address] [facility] [address] [place] [address] Care Team Providers Care Shrimp Cleaner Name Role Phone Jenifer Borden HUGH Primary Care Provider Encounter Details Date Type Department Care Team (Late st Contact Info) Description 06/23/2024 Orders Only GENERIC EXTERNAL DATA DEPARTMENT Provider, Generic External Data Social History Tobacco Use Types Packs/Day Years [...] as of this encounter Plan of Treatment Not on file documented as of this encounter Procedures Procedure Name Priority Date/Time Associated Diagnosis Comments XR CHEST 2 VIEWS Routine 06/23/2024 3:50 PM EDT SARS COV2/INFLUENZA A/B AND RSV RNA QL NAAT Routine 06/23/2024 3:22 PM EDT documented in this encounter Results * XR Chest 2 Views (06/23/2024 3:50 PM EDT) Anatomical Region Laterality Modality Chest Radiographic Martina ging 06/23/2024 3:50 PM EDT Narrative 06/23/2024 4:20 PM EDT ? [facility] ?[address] ?[place] [address] ?XRay Report ? Signed ? Patient: Claire Henderson,Carelyn ?MR#: ?? [id number] ? : 2000 ?Acct:[id number] ? Age/Sex: 24 / F ?ADM Date: 03/10/25 ? Loc: HO.ED ? Attending Dr: ? Ordering Physician: Kailyn Velasquez ?? Date of Service: 06/23/24 ?? Procedure(s): XR chest 2V ?? Accession Number(s): [id number] ? cc: Jenifer Borden; Kailyn Velasquez ? [...] DD/ 1550 ? TD/TT: 06/23/24 1601 ? Sales Appointment Coordinator: ? Procedure Note Fe, Image - 06/23/2024 [place] [address] XRay Report Signed Patient: Concepción NjnMR#: [id number] : 2000Acct:[id number] Age/Sex: 24 FADM Date: 06/23/24 Loc: .ED Attending Dr: Ordering Physician: Kailyn Velasquez Date of Service: 06/23/24 Procedure(s): XR chest 2V Accession Number(s): [id number] cc: Jenifer Borden AUTO BODY MECHANIC APPRENTICE; Kailyn Velasquez EXAMINATION: XR CHEST CLINICAL INFORMATION: [...] MD Signed By: <Electronically signed by Deo Evans MD in OV> 06/23/24 1617 DD/ 1550 TD/TT: 06/23/24 1601 Sales Appointment Coordinator: [facility] External Provider IMG XR PROCEDURES Final Result * (ABNORMAL) SARS-CoV-2 RNA, Influenza A/B, and RSV RNA, Ql NAAT (06/23/2024 3:22 PM EDT) Influenza A PCR POSITIVE(A) Negative [facility] Influenza B PCR NEGATIVE Negative [facility] Resp Syncy Virus RNA Qual PCR NEGATIVE Negative [facility] SARS COV2 PCR NEGATIVE Negative [facility] Comment:All test results mus t be [...] use by authorized laboratories.Testing performed on the [employer] GeneXpert utilizingreal-time RT-PCR.All SARS CoV2 and positive influenza A/B results arereported to [facility]. 06/23/2024 3:22 PM EDT 06/23/2024 3:24 PM EDT Generic External Data Provider LAB MICROBIOLOGY - GENERAL ORDERABLES Final Result [facility] [address] [place] [phone] documented in this encounter Visit Diagnoses Not on filedocumented in this encounter Additional Health Concerns Assessment Noted Time PHQ-9 Depression Total Score: 15 024 9:50 AM EDT documented as of this encounter Care Teams Shrimp Cleaner Relationship Specialty Start Date End Date Jenifer Borden FNP [address] [place] [address] PCP - General Family Medicine 12/11/21 documented as of this encounter
== END 2024-06-23 18:48 | disposition left against medical advice (07) ==
PROVIDERS: Physician Assistant Medical; Emergency Provider Emergency Medicine; PCP Registered Nurse
DX: J10.1 Influenza due to other identified influenza virus with other respiratory manifestations (principal); R05.9 Cough, unspecified; Z03.818 Encounter for observation for suspected exposure to other biological agents ruled out
CPT/HCPCS: 0241U; 71046; 99281; 99283

== ENCOUNTER → 2024-06-23 15:18 | Outpatient (BNV) | payer OTHER, SELFPAY | PROVIDERS: Emergency Provider Emergency Medicine; PCP Registered Nurse; Visit Provider Radiology Diagnostic Radiology | DX: R05.9 Cough, unspecified (principal) | CPT/HCPCS: 71046 ==

== ENCOUNTER 2024-07-21 11:20 | Outpatient (AMB) | payer MEDICAID, SELFPAY ==
[2024-07-21 11:41] VITALS: BP 96/70; BMI 27.4
--- NOTE | 2024-07-21 11:41 | MHC.OFFVIS ---
Vital Signs 07/21/24 11:41 Height 5 ft 1 in Weight 145 lb BMI 27.4 BP 96/70 Intake Visit Reasons: 3 month BC f/u Electrical Installation Inspector Required: No Electrical Installation Inspector Services: Electrical Installation Inspector Present Information Interpreted: clinical only Hat Brusher Machine: Hat Brusher Machine Present Allergies No Known Allergies Allergy (Verified 07/21/24 11:43) Is last menstrual period known: Yes Last menstrual period: 06/21/24 HPI HPI 3 month BC f/u: Details: patient is here for control pill follow-up however she stopped the control pills after taking them for 1 month because she was spotting on them she does admit that she was taking them sometimes it different times a day she started them on the 2nd day of her period in May and she stopped them in the beginning of June and she got a period immediately afterwards. She has been having unprotected sex since. 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 She is tired today. She thinks she is due for her period tomorrow. She does not think now as the right time to have a baby she does not like how condoms make her feel and she gained weight on the Depo and she does not want to gain weight because she just had gained weight on the Depo and then went through the whole procedure of having liposuction to transfer the weight to her but and she had annoying challenges with that process. She is not interested in any other method of control she just wants to let her body go back to normal. Much of this visit was spent discussing being proactive about her conscious decision making and asking herself if now is the time to have a baby before she engaged in sex and if the answer was no to consider strongly using a condom I did also offer her all of the other methods and discussed how they work and their side effects . she decides she is interested in another method to let us know. [facility] Medical History Counseling for control, oral contraceptives control counseling Cervical cancer screening Well woman exam with routine gynecological exam UTI (urinary tract infection) Chlamydia infection On Depo-Provera for contraception Bacterial vaginosis Screen for sexually transmitted diseases Acute bronchitis due to 2019-nCoV Contusion of right knee PID (acute pelvic inflammatory disease) Folliculitis Potential exposure to STD COVID-19 Gastritis Family History Paternal Aunt Uterine cancer Social History Alcohol intake: current Alcohol intake frequency: holidays/special occasions only Patient Tobacco Use Status: Never used Tobacco Substance Use Type: Marijuana 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 Gender identity: Female Female Reproductive History Menstrual Age of Menarche: 11 Duration of menses: 3-5 days Date of last menstrual period: 06/21/24 control method: none Physical Exam Vital Signs: Last Vital Signs BP 96/70 07/21/24 11:41 BMI result Body Mass Index 27.4 Assessment & Plan Assessment & Plan (1) Counseling for control, oral contraceptives: Code(s): Z30.09 - Encounter for other general counseling and advice on contraception Category: Medical (2) control counseling: Code(s): Z30.09 - Encounter for other general counseling and advice on contraception Category: Medical Plan patient is here for control pill follow-up however she stopped the control pills after taking them for 1 month because she was spotting on them she does admit that she was taking them sometimes it different times a day she started them on the 2nd day of her period in May and she stopped them in the beginning of June and she got a period immediately afterwards. She has been having unprotected sex since. 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 She is tired today. She thinks she is due for her period tomorrow. She does not think now as the right time to have a baby she does not like how condoms make her feel and she gained weight on the Depo and she does not want to gain weight because she just had gained weight on the Depo and then went through the whole procedure of having liposuction to transfer the weight to her but and she had annoying challenges with that process. She is not interested in any other method of control she just wants to let her body go back to normal. Much of this visit was spent discussing being proactive about her conscious decision making and asking herself if now is the time to have a baby before she engaged in sex and if the answer was no to consider strongly using a condom I did also offer her all of the other methods and discussed how they work and their side effects . she decides she is interested in another method to let us know. Coding Level of Care Code Est Pt Level 3 (50602) Diagnoses Counseling for control, oral contraceptives Z30.09 control counseling Z30.09
--- OUTSIDE RECORDS SUMMARY | 2024-07-21 13:39 | XMS_ITS | Clinical Summary ---
Author Organization [employer] Address [address] [place] [address] [address] [place] [address] Care Team Providers Care Calculating Machine Operator Name Role Phone Jenifer Borden HUGH Primary Care Provider [phone] Allergies No known active allergies Medications medroxyPROGEST [...] (12/18/2023): Last PE: 12/14/23 Pap: following with [facility]: following with Dr. [facility]: [...] sent to pharmacy [facility] Referral to marine propulsion technician placed 09/28/23 - scheduled Apr 11, 2024 ED precautions reviewed Assessment & Plan (09/30/2023 6:45 PM EDT): New onset of allergic reaction in July 2023 that required ED eval with start of throat itching/swelling. Improved with IV steroid and benadryl Unclear trigger / allergen Prescription for Epi-pen sent to pharmacy [facility] Referral to marine propulsion technician placed 09/28/23 ED precautions reviewed Resolved Problems Problem Noted Date Diagnosed Date Resolved Date Epigastric pain 02/26/2018 12/18/2023 Encounters Date Type Department Care Team Description 06/23/2024 Orders Only GENERIC EXTERNAL DATA DEPARTMENT Provider, Generic External Data 04/30/2024 Orders Only GENERIC EXTERNAL DATA DEPARTMENT Provider, Generic External Data from Last 3 Months Immunizations Name Administration [...] EDT Narrative 06/23/2024 4:20 PM EDT ? [facility] ?[address] ?[place] [address] ?XRay Report ? Signed ? Patient: Claire Henderson,Carelyn ?MR#: ?? [id number] ? : 2000 ?Acct:[id number] ? Age/Sex: 24 / F ?ADM Date: 06/23/24 ? Loc: HO.ED ? Attending Dr: ? Ordering Physician: Kailyn Velasquez ?? Date of Service: 06/23/24 ?? Procedure(s): XR chest 2V ?? Accession Number(s): [id number] ? cc: Jenifer Borden MANAGER TRANSPORTATION; Kailyn Velasquez ? EXAMINATION: ?? XR CHEST [...] signed by Deo Evans MD in OV> ?06/23/247 ? DD/ 1550 ? TD/TT: 06/23/24 1601 ? Powderer: ? Procedure Note Donceciter, Image - 06/23/[address] [address] XRay Report Signed Patient: Concepción NjnMR#: [id number] : 2000Acct:[id number] Age/Sex: 24 / FADM Date: 06/23/24 Loc: HO.ED Attending Dr: Ordering Physician: Kailyn Velasquez Date of Service: 06/23/24 Procedure(s): XR chest 2V Accession Number(s): [id number] cc: Jenifer Borden; Kailyn Velasquez EXAMINATION: XR CHEST CLINICAL INFORMATION: [...] 06/23/24 1617 DD/ 1550 TD/TT: 06/23/24 1601 Powderer: [facility] External Provider IMG XR PROCEDURES Final Result * (ABNORMAL) SARS-CoV-2 RNA, Influenza A/B, and RSV RNA, Ql NAAT (06/23/2024 3:22 PM EDT) Influenza A PCR POSITIVE(A) Negative [facility] Influenza B PCR NEGATIVE Negative [facility] Resp Syncy Virus RNA Qual PCR NEGATIVE Negative [facility] SARS COV2 PCR NEGATIVE Negative [facility] Comment:All test results mus t [...] use by authorized laboratories.Testing performed on the [employer] GeneXpert utilizingreal-time RT-PCR.All SARS CoV2 and positive influenza A/B results arereported to [facility]. 06/23/2024 3:22 PM EDT 06/23/2024 3:24 PM EDT Generic External Data Provider LAB MICROBIOLOGY - GENERAL ORDERABLES Final Result [facility] [address] [place] [phone] * (ABNORMAL) Bacterial Vaginosis (04/30/2024 9:30 AM EST) TRICHOMONAS VAGINALIS DETECTION BY PCR NOT DETECTED Not Detect [facility] BACTERIAL VAGINOSIS DETECTION BY PCR NEGATIVE Negative [facility] Comment:The BV organism targ ets [...] GROUP DETECTION BY PCR DETECTED(A) Not Detect [facility] Jennifer glab krusei PCR NOT DETECTED Not Detect [facility] 04/30/2024 9:30 AM EST 04/30/2024 4:51 PM EST us Generic External Data Provider LAB MICROBIOLOGY - GENERAL ORDERABLES Final Result [facility] [address] [place] [address] [phone] * Chlamydia/N. Gonorrhoeae RNA, TMA, Urogenitial (04/30/2024 9:30 AM EST) CT PCR NOT DETECTED Not Detect. [facility] Comment:A not detected test result [...] psychologicalconsequences. NG PCR NOT DETECTED Not Detect. [facility] Comment:A not detected test result [...] AM EST 04/30/2024 4:51 PM EST Narrative [facility] - 04/30/2024 9:53 PM EST Vaginal Generic External Data Provider LAB MICROBIOLOGY - GENERAL ORDERABLES Final Result Performing Organization Address [facility]/ZIP Co de Phone Number [facility] [address] [place] [phone] * Hepatitis C Ab (01/22/2024 3:10 PM EDT) Pathologist [facility] Hepatitis C Antibody Nonreactive Nonreactive [facility] Comment:Antibodies to HCV no t detected; does not exclude early acuteHCV infection. 01/22/2024 3:10 PM EDT 01/22/2024 3:14 PM EDT Generic External Data Provider LAB BLOOD ORDERAB LES Final Result Performing Organization Address [facility] Co de Phone Number [facility] [address] [place] [phone] * HIV-1/2 Antigen and Antibodies, Fourth Generation, with Reflexes (01/22/2024 3:10 PM EDT) HIV AB/AG Nonreactive Nonreactive [facility] Comment:HIV-1 p24 Ag and/or HIV-1/HIV-2 Ab not detected.A test result that is nonreactive does not exclude thepossibility of exposure to or infection with HIV-1 and/orHIV-2. Nonreactive results in this assay for individualswith prior exposure to HIV-1 and/or HIV-2 may be due toantigen and antibody levels that are below the limit ofdetection of this assay.The [employer] HIV Ag/Ab Combo assay result andsupplemental assay results should be interpreted inconjunction with the patient's clinical presentation,history and other laboratory results. If the results areinconsistent with clinical evidence, additional testing issuggested to confirm the result. 01/22/2024 3:10 PM EDT 01/22/2024 3:14 PM EDT us Generic External Data Provider LAB BLOOD ORDERAB LES Final Result [facility] [address] [place] [address] [phone] * ThinPrep?? Imaging Pap Refl HPV mRNA(if ASCUS,ASC-H,LSIL,HSIL,NANCY)Refl Genotype (01/21/2024 12:00 AM EDT) HPV nRNA E6/E7 [facility] HPV 16,18/45 [facility] SOURCE: SEE NOTE [facility] Comment:None given Report Status: [facility] Clinical Information: SEE NOTE [facility] Comment:None given LMP: SEE NOTE [facility] Comment:NONE GIVEN Prev. PAP: SEE NOTE [facility] Comment:NONE GIVEN Prev. BX: SEE NOTE [facility] Comment:NONE GIVEN Statement Of Adequacy: SEE NOTE [facility] Comment:Satisfactory for papi luation.Endocervical/transformation zone component absent. General Categorization: [facility] Interpretation/Result: SEE NOTE [facility] Comment:Cytology Results: Ne gative for intraepitheliallesion or malignancy. Cytology Comment SEE NOTE [facility] Comment:This Pap test has be en evaluated with computerassisted technology. Equipment Processer Storage: SEE NOTE [facility] Comment:IVONE, CT(ASCP)CT scre ening location: [place] [address] Review Equipment Processer Storage: [facility] Pathologist [facility] PAP Infection [facility] See Note SEE NOTE [facility] Comment:EXPLANATORY NOTE:The Pap is a screening test for cervical cancer. It isnot a diagnostic test and is subject to false negativeand false positive results. It is most reliable when asatisfactory sample, regularly obtained, is submittedwith relevant clinical findings and history, and whenthe Pap result is evaluated along with historic andcurrent clinical information.THIS TEST WAS PERFORMED AT:[facility] [place] [phone] WALSH MD 01/21/2024 01/21/2024 Narrative [facility] - 01/25/2024 3:22 PM EDT SEE SCANNED RESULTS IN EMR us Generic External Data Provider LAB CYTOLOGY JENNIFER ORTEZ Final Result [facility] [address] [place] [address] [phone] from Last 3 Months or Most Recently Relevant to Health Maintenance Insurance [facility] Care Teams Calculating Machine Operator Relationship Specialty Start Date End Date Jenifer Borden FNP [address] [place] [address] PCP - General Family Medicine 12/11/21
--- OUTSIDE RECORDS SUMMARY | 2024-07-21 13:39 | XMS_ITS | Encounter Summary ---
Author Organization [employer] Address [address] [facility] [address] [place] [address] Care Team Providers Care Urology Teacher Name Role Phone Jenifer Borden Primary Care Provider [phone] Encounter Details Date Type Department Care Team ([facility] st Contact Info) Description 12/19/2023 Orders Only [facility] [address], [place] [phone] Jenifer Borden FNP [address] [place] [address] Healthcare maintenance (Primary Dx) Social History Tobacco [...] documented as of this encounter Care Teams Urology Teacher Relationship Specialty Start Date End Date Jenifer Borden FNP [address] [place] [address] PCP - General Family Medicine 12/11/21 documented as of this encounter
== END 2024-07-21 12:30 | disposition home or self-care (01) ==
LOC: HO.HWS 11:20
PROVIDERS: PCP Registered Nurse; Visit Provider Advanced Practice Midwife
DX: Z30.09 Encounter for other general counseling and advice on contraception (principal)
CPT/HCPCS: 99213

== ENCOUNTER → 2024-07-21 11:20 | Outpatient (BNVA) | payer MEDICAID, SELFPAY | PROVIDERS: PCP Registered Nurse; Visit Provider Advanced Practice Midwife | DX: Z30.09 Encounter for other general counseling and advice on contraception (principal) | CPT/HCPCS: 99212 ==